=== PATIENT | male | born 1970 | race African-American/Black ===

== ENCOUNTER 2016-08-18 07:53 | Inpatient (IN) | payer MEDICARE, MEDICAID ==
[2016-08-18] VITALS (9 sets, daily range): BP systolic 119–148; BP diastolic 62–85; PULSE 107–138; RESP 18–22; TEMP 98.4–100.8; O2SAT 92–100
[~2016-08-18] VITALS: Ht 177.8 cm; Wt 92.3 kg
[~2016-08-18 07:53] MED LIST: ATOV750UDC PO; EFAV200 PO; EMTR200 PO; FERR324T4 PO; LACT PO; LORTA5 PO; SENN187 PO; TENO300 PO; Z.0.NO CURRENT MEDS
[2016-08-18] MEDS ORDERED: VANCOMYCIN INJ 1,000 MG in SODIUM CHLOR 0.9% 250 ML INJ 250 ML IV ONE (08:45)
[2016-08-18] MEDS ORDERED: CEFEPIME INJ 2,000 MG in SODIUM CHLORIDE 0.9% INJ 100 ML IV ONE (08:45)
[2016-08-18] MEDS ORDERED: SODIUM CHLORID 0.9% 500 ML INJ 500 ML IV ONE (08:45)
[2016-08-18] MEDS ORDERED: RESP: ALBUTEROL 2.5 MG/IPRATROPIUM 0.5 MG NEB (SCH) NEB ONE (09:00)
[2016-08-18 09:19] LABS: AUTOMATED NEUTROPHIL # 11.5 TH/MM3 (1.8-7.7); BASOPHIL % 0.1 % (0.0-2.0); EOSINOPHIL % 0.1 % (0.0-4.0); HEMATOCRIT 24.7 % (39.0-51.0); LYMPHOCYTE # 0.9 TH/MM3 (1.0-4.8); MEAN CELL VOLUME 97.9 FL (80.0-100.0); MEAN CORPUSCULAR HEMOGLOBIN 30.9 PG (27.0-34.0); MEAN CORPUSCULAR HGB CONC 31.6 % (32.0-36.0); MONO % 6.3 % (0.0-8.0); NEUT % 86.5 % (16.0-70.0); PLATELET COUNT 202 TH/MM3 (150-450); RED BLOOD COUNT 2.52 MIL/MM3 (4.50-5.90); RED CELL DISTRIBUTION WIDTH 16.3 % (11.6-17.2); WHITE BLOOD COUNT 13.3 TH/MM3 (4.0-11.0)
[2016-08-18 09:22] LABS: HEMO FLAGS AUTO DIFF
--- NOTE | 2016-08-18 09:22 | RADRPT ---
EXAM DATE/TIME: 08/18/2016 08:45 [place] COMPARISON: CHEST SINGLE AP, August 26, 2015, 16:33. INDICATIONS: Fever, short of breath for several days MEDICAL HISTORY: Asthma, renal failure SURGICAL HISTORY: Dialysis catheter ENCOUNTER: Subsequent ACUITY: 1 week PAIN SCORE: 0/10 LOCATION: Bilateral chest FINDINGS: There is a double lumen catheter in place from the right internal jugular approach with the tip overl zaira the junction of the SVC and right atrium. There is a large left pleural effusion occupying two- thirds of the left chest. There is some atelectasis or consolidation at the mid and lower left lung. There is some milder consolidation or atelectasis at the right base. A significant right effusion i s not appreciated. Old healed right-sided rib fractures are seen. The left heart border is silhouet paulino by effusion and parenchymal changes. CONCLUSION: 1. Large left pleural effusion with some accompanying atelectasis or consolidation at the left mid a nd lower lung. 2. Mild atelectasis or consolidation at the right base. Parminder Mccormick MD on August 18, 2016 at 9:12 Board Certified Radiologist. This report was verified electronically.
[2016-08-18 09:29] LABS: APTT (PATIENT) 35.6 SEC (24.3-30.1); INTERNATIONAL NORMALIZED RATIO 1.1 RATIO; PROTHROMBIN TIME - PATIENT 12.4 SEC (9.8-11.6)
[2016-08-18 09:34] LABS: ANION GAP 12 MEQ/L (5-15)
[2016-08-18 09:39] LABS: ALKALINE PHOSPHATASE 90 U/L (45-117); ALT (GPT) 9 U/L (12-78); AST (GOT) 22 U/L (15-37); BICARBONATE 19.5 MEQ/L (21.0-32.0); BLOOD UREA NITROGEN 66 MG/DL (7-18); CHLORIDE 103 MEQ/L (98-107); GLOMERULAR FILTRATION RATE 5 ML/MIN (>89); MAGNESIUM 2.2 MG/DL (1.5-2.5); SODIUM (NA) 134 MEQ/L (136-145); TOTAL BILIRUBIN ADULT 0.4 MG/DL (0.2-1.0)
[2016-08-18 10:00] LABS: BANDS 5 % (0-6); NEUTROPHIL # MANUAL DIFF 11.3 TH/MM3 (1.8-7.7); PLATELET ESTIMATE SMEAR NORMAL (NORMAL); PLATELET MORPHOLOGY NORMAL (NORMAL); POLYS (SEG NEUTROPHILS) 80 % (16-70); SCAN/DIFF FINAL DIFF MANUAL; WBC DIFF SAMPLE 100
[2016-08-18] MEDS ORDERED: SODIUM CHLORIDE 0.9% FLUSH 5 ML FLUSH FLUSH PRN (11:00)
[2016-08-18] MEDS ORDERED: BISACODYL 10 MG SUPP PR PRN (11:00)
[2016-08-18] MEDS ORDERED: CEFEPIME INJ 2,000 MG in SODIUM CHLORIDE 0.9% INJ 100 ML IV PRN (11:00)
[2016-08-18] MEDS ORDERED: VANCOMYCIN INJ 1,000 MG in SODIUM CHLOR 0.9% 250 ML INJ 250 ML IV SCH (11:00)
[2016-08-18] MEDS ORDERED: MAGNESIUM HYDROXIDE SUSP 30 ML CUP PO PRN (11:00)
[2016-08-18] MEDS ORDERED: SENNOSIDES 8.6 MG TAB PO PRN (11:00)
[2016-08-18] MEDS ORDERED: ACETAMINOPHEN 325 MG TAB PO PRN ×2 (11:00→18:30)
[2016-08-18] MEDS ORDERED: ONDANSETRON HCL 4 MG/2 ML VIAL IVP PRN (11:00)
[2016-08-18] MEDS ORDERED: PROCHLORPERAZINE 25 MG SUPP PR PRN (11:00)
[2016-08-18] MEDS ORDERED: Vancomycin Consult Pharmacy 1 EA OTHER SCH (11:00)
--- NOTE | 2016-08-18 11:32 | PD ---
HPI Chief Complaint: Fever Time Seen by Provider: 08:36 Travel History International Travel<30 days: No Contact w/Intl Traveler<30days: No Traveled to known affect area: No History of Present Illness HPI 45-year-old man, history of HIV, end-stage renal disease, hepatitis C, presents emergency Department with fevers and chills. He's had 2 weeks of cough cold symptoms, that started yesterday and today started having fevers chills and night sweats. He also had some shortness of breath at 9 over the past week or so. He missed dialysis yesterday because he was feeling poorly. He gets dialysis in [place] where he lives. He is a right chest port in, as well as a left AV fistula that apparently still maturing. History Past Medical History Narrative Medical HIV End-stage renal disease, on hemodialysis Wednesday to her right chest or Hepatitis C Hypertension Influenza Vaccination: Yes Social History Alcohol Use: No Tobacco Use: No Allergies-Medications (Allergen,Severity, Reaction): Coded Allergies: *MDRO Multi-Drug Resistant Organism (Verified Adverse Reaction, Unknown, 07/16/15) MDR-acinetobacter baumannii/haemol blood 07/2015 Reported Meds & Prescriptions Reported Meds & Active Scripts Active Viread (Tenofovir Disoproxil Fumarate) 300 Mg Tab 300 Mg PO Q7D 30 Days Senokot 8.6 mg Tab (Sennosides) 8.6 Mg Tab 17.2 Mg PO Q12H PRN 30 Days Lactinex (Lactobacillus Acidophilus) 1 Tab Tab 1 Tab PO TID 30 Days Hydrocodone/Acetaminophen 5 mg/325 mg 1 Tab Tab 1 Tab PO Q6HR PRN Ferrous Sulfate 325 Mg Tab 325 Mg PO BID 30 Days Emtriva (Emtricitabine) 200 Mg Cap 200 Mg PO Q96H 30 Days Sustiva (Efavirenz) 200 Mg Cap 600 Mg PO HS 30 Days Mepron 750 Mg Udc (Atovaquone) 750 Mg/5 Ml Susp 1,500 Mg PO DAILY 30 Days Reported No Current Meds (Miscellaneous Medication) Misc Review of Systems Except as stated in HPI: all other systems reviewed are Neg Physical Exam Narrative GENERAL: Generally well-appearing 45-year-old man, generally well-appearing. SKIN: Warm and dry. HEAD: Atraumatic. Normocephalic. EYES: Pupils equal and round. No scleral icterus. No injection or drainage. ENT: No nasal bleeding or discharge. Mucous membranes pink and moist. NECK: Trachea midline. No JVD. CARDIOVASCULAR: Heart rate rapid. No appreciable murmurs. RESPIRATORY: Coarse breath sounds wheezing and rhonchi throughout the posterior lung reese. GASTROINTESTINAL: Abdomen soft, non-tender, nondistended. Hepatic and splenic margins not palpable. MUSCULOSKELETAL: No obvious deformities. No edema. NEUROLOGICAL: Awake and alert. No obvious cranial nerve deficits. Motor grossly within normal limits. Normal speech. PSYCHIATRIC: Appropriate mood and affect; insight and judgment normal. Data Data Last Documented VS Vital Signs Date Time Temp Pulse Resp B/P Pulse Ox O2 Delivery O2 Flow Rate FiO2 08/18/16 09:35 98 Nasal Cannula 3.00 08/18/16 08:37 137 18 08/18/16 08:32 100.2 145/71 Orders Complete Blood Count With Diff (08/18/16 08:45) Comprehensive Metabolic Panel (08/18/16 08:45) Prothrombin Time / Inr (Pt) (08/18/16 08:45) Act Partial Throm Time (Ptt) (08/18/16 08:45) Lactic Acid Sepsis Protocol (08/18/16 08:45) Magnesium (Mg) (08/18/16 08:45) Lipase (08/18/16 08:45) Troponin I (08/18/16 08:45) Urinalysis - C+S If Indicated (08/18/16 08:45) Influenzae A/B Antigen (08/18/16 08:45) Blood Culture (08/18/16 08:45) Chest, Single Ap (08/18/16 08:45) Blood Glucose (08/18/16 08:45) Ecg Monitoring (08/18/16 08:45) Iv Access Insert/Monitor (08/18/16 08:45) Oximetry (08/18/16 08:45) Oxygen Administration (08/18/16 08:45) Sodium Chlorid 0.9% 500 Ml Inj (Ns 500 M (08/18/16 08:45) Vancomycin Inj (Vancomycin Inj) (08/18/16 08:45) Cefepime Inj (Maxipime Inj) (08/18/16 08:45) Albuterol-Ipratropium Neb (Duoneb Neb) (08/18/16 09:00) Admit Order (Ed Use Only) (08/18/16 ) Admit To Inpatient (08/18/16 ) Vital Signs (Adult) Q4H (08/18/16 10:59) Activity Oob With Assistance (08/18/16 10:59) Bedside Glucose YESICA.AC&HS (08/18/16 10:59) ^ Director Rehabilitation Program / Telemetry .CONTINUOUS (08/18/16 10:59) Intake + Output YESICA.QSHIFT (08/18/16 10:59) Diet Heart Healthy (08/18/16 Lunch) Sodium Chloride 0.9% Flush (Ns Flush) (08/18/16 11:00) Sodium Chloride 0.9% Flush (Ns Flush) (08/18/16 21:00) Acetaminophen (Tylenol) (08/18/16 11:00) Ondansetron Inj (Zofran Inj) (08/18/16 11:00) Prochlorperazine Supp (Compazine Supp) (08/18/16 11:00) Bisacodyl Supp (Dulcolax Supp) (08/18/16 11:00) Magnesium Hydroxide Liq (Milk Of Magnesi (08/18/16 11:00) Sennosides (Senokot) (08/18/16 11:00) Basic Metabolic Panel (Bmp) (08/19/16 06:00) Complete Blood Count With Diff (08/19/16 06:00) Resp Oxygen Ponce C Titrat 1-4 L (08/18/16 ) Pt Request For Service (08/18/16 10:59) Ot Request For Service (08/18/16 10:59) Case Management Consult (08/18/16 10:59) Enoxaparin Inj (Lovenox Inj) (08/18/16 11:00) Scd Bilateral/Knee High YESICA.BID (08/18/16 10:59) Mauro Bilateral/Knee High YESICA.QSHIFT (08/18/16 10:59) Inpatient Certification (08/18/16 ) Cefepime Inj (Maxipime Inj) (08/18/16 11:00) Vancomycin Consult Pharmacy (Vancomycin (08/18/16 11:00) Vancomycin Inj (Vancomycin Inj) (08/18/16 11:00) Consult Nephrology (08/18/16 ) Consult Infectious Disease (08/18/16 ) ^ Medication Reconciliation (08/18/16 11:03) Labs Laboratory Tests Test 08/18/16 08:50 White Blood Count 13.3 TH/MM3 Red Blood Count 2.52 MIL/MM3 Hemoglobin 7.8 GM/DL Hematocrit 24.7 % Mean Corpuscular Volume 97.9 FL Mean Corpuscular Hemoglobin 30.9 PG Mean Corpuscular Hemoglobin 31.6 % Concent Red Cell Distribution Width 16.3 % Platelet Count 202 TH/MM3 Mean Platelet Volume 8.3 FL Neutrophils (%) (Auto) 86.5 % Lymphocytes (%) (Auto) 7.0 % Monocytes (%) (Auto) 6.3 % Eosinophils (%) (Auto) 0.1 % Basophils (%) (Auto) 0.1 % Neutrophils # (Auto) 11.5 TH/MM3 Lymphocytes # (Auto) 0.9 TH/MM3 Monocytes # (Auto) 0.8 TH/MM3 Eosinophils # (Auto) 0.0 TH/MM3 Basophils # (Auto) 0.0 TH/MM3 CBC Comment AUTO DIFF Differential Total Cells 100 Counted Neutrophils % (Manual) 80 % Band Neutrophils % 5 % Lymphocytes % 10 % Monocytes % 5 % Neutrophils # (Manual) 11.3 TH/MM3 Differential Comment FINAL DIFF MANUAL Platelet Estimate NORMAL Platelet Morphology Comment NORMAL Prothrombin Time 12.4 SEC Prothromb Time International 1.1 RATIO Ratio Activated Partial 35.6 SEC Thromboplast Time Sodium Level 134 MEQ/L Potassium Level 5.0 MEQ/L Chloride Level 103 MEQ/L Carbon Dioxide Level 19.5 MEQ/L Anion Gap 12 MEQ/L Blood Urea Nitrogen 66 MG/DL Creatinine 13.18 MG/DL Estimat Glomerular Filtration 5 ML/MIN Rate Random Glucose 106 MG/DL Lactic Acid Level 2.0 mmol/L Calcium Level 8.3 MG/DL Magnesium Level 2.2 MG/DL Total Bilirubin 0.4 MG/DL Aspartate Amino Transf 22 U/L (AST/SGOT) Alanine Aminotransferase 9 U/L (ALT/SGPT) Alkaline Phosphatase 90 U/L Troponin I 0.09 NG/ML Total Protein 11.2 GM/DL Albumin 2.3 GM/DL Lipase 222 U/L MDM Medical Decision Making Medical Screen Exam Complete: Yes Emergency Medical Condition: Yes Interpretation(s) LABS: CBC remarkable for mild leukocytosis, mild anemia CMP remarkable for elevated BUN/creatinine Troponin 0.09 Total protein on 0.2 Lipase normal Chest x-ray: Large left pleural effusion with some accompanying atelectasis or consolidation of the left mid and lower lung. Mild atelectasis or consolidation of the right base. Differential Diagnosis Pneumonia, sepsis, HIV Narrative Course Medical decision making 45-year-old man with sepsis, end-stage renal disease, implanted line, and HIV. Likely pneumonia source. Chest x-ray shows pleural effusion. Of note, visitors with him does not know his HIV status and he would like her to not. Initially admitted. Diagnosis Primary Impression: Sepsis Qualified Code: A41.9 - Sepsis, due to unspecified organism Additional Impression: HIV disease William Yuen MD Aug 18, 2016 11:32
[2016-08-18] MEDS ORDERED: ENOXAPARIN SODIUM 40 MG/0.4 ML SYRINGE SQ SCH (12:00)
--- NOTE | 2016-08-18 15:31 | HHI.HP ---
HPI Service [facility] Primary Care Physician Unknown Admission Diagnosis sepsis Diagnoses: Chief Complaint: coufg, fevers Travel History International Travel<30 Days: No Contact w/Intl Traveler <30 Da: No Traveled to Known Affected Are: No History of Present Illness 45 yo male with PMH of HIV/AIDS/ HIV nephropathy, ESRD on HD M/W/F here for evaluation of cough, fevers and tiredness. Patient says she started coughing 2 weeks ago, worsening for the past 3-4 days, and he has associated intermittent fevers starting yesterday. Says he missed HD because he felt too week. He also has associated sob for the past 2 days. Says when he leans on bed he has more sob and cough. No cp, n/v/d/c. Says he goes back and forth [place] /[place] and his nephrology doctor is in [place]. He treated himself with OTC meds but did not help. Feels very weak. The patient is in the room leaning on the table, on the pillow and says this position is making him cough less. He has a right chest port , as well as a left AV fistula that apparently still maturing. Review of Systems Other 12 system ROS reviewed , negative except mentioned in HPI Past Family Social History Past Medical History HIV/AIDS/ HIV nephropathy, ESRD on HD Past Surgical History dialysis fistula Reported Medications Reported Meds & Active Scripts Active Allergies: Coded Allergies: *MDRO Multi-Drug Resistant Organism (Verified Adverse Reaction, Unknown, 07/16/15) MDR-acinetobacter baumannii/haemol blood 07/2015 Family History Says his parents and siblings are alive but doesn't know any medical problems that they might have. Social History Denies EtOH use, tobacco use. Denies illicit drug use. Says no IV drug use... Says he doesn't know how he got HIV/Hep C .... Physical Exam Vital Signs Vital Signs Date Time Temp Pulse Resp B/P Pulse Ox O2 Delivery O2 Flow Rate FiO2 08/18/16 14:25 115 22 122/72 95 Nasal Cannula 4 08/18/16 13:13 131 22 119/63 92 Nasal Cannula 4 08/18/16 09:35 98 Nasal Cannula 3.00 08/18/16 09:01 95 Nasal Cannula 4 08/18/16 09:01 95 Nasal Cannula 4 08/18/16 08:37 137 18 95 Room Air 08/18/16 08:32 100.2 138 18 145/71 97 08/18/16 07:55 100.3 136 18 148/85 93 Room Air Physical Exam GENERAL: This is a chronically ill 45 yo AA male patient, well-nourished, well- developed patient, coughing. SKIN: No rashes, ecchymoses or lesions. Cool and dry. HEAD: Atraumatic. Normocephalic. No temporal or scalp tenderness. EYES: Pupils equal round and reactive. Extraocular motions intact. No scleral icterus. No injection or drainage. ENT: Nose without bleeding, purulent drainage or septal hematoma. Throat without erythema, tonsillar hypertrophy or exudate. Uvula midline. Airway patent. NECK: Trachea midline. No JVD or lymphadenopathy. Supple, nontender, no meningeal signs. CARDIOVASCULAR: Regular rate and rhythm without murmurs, gallops, or rubs. RESPIRATORY: Coarse breath sounds, wheezing and rhonchi throughout the posterior lung reese. GASTROINTESTINAL: Abdomen soft, non-tender, nondistended. No hepato-splenomegaly , or palpable masses. No guarding. MUSCULOSKELETAL: Extremities without clubbing, cyanosis, or edema. No joint tenderness, effusion, or edema noted. No calf tenderness. Negative Homans sign bilaterally. NEUROLOGICAL: Awake and alert. Cranial nerves II through XII intact. Motor and sensory grossly within normal limits. Five out of 5 muscle strength in all muscle groups. Normal speech. Laboratory Laboratory Tests Test 08/18/16 08:50 White Blood Count 13.3 Red Blood Count 2.52 Hemoglobin 7.8 Hematocrit 24.7 Mean Corpuscular Volume 97.9 Mean Corpuscular Hemoglobin 30.9 Mean Corpuscular Hemoglobin 31.6 Concent Red Cell Distribution Width 16.3 Platelet Count 202 Mean Platelet Volume 8.3 Neutrophils (%) (Auto) 86.5 Lymphocytes (%) (Auto) 7.0 Monocytes (%) (Auto) 6.3 Eosinophils (%) (Auto) 0.1 Basophils (%) (Auto) 0.1 Neutrophils # (Auto) 11.5 Lymphocytes # (Auto) 0.9 Monocytes # (Auto) 0.8 Eosinophils # (Auto) 0.0 Basophils # (Auto) 0.0 CBC Comment AUTO DIFF Differential Total Cells 100 Counted Neutrophils % (Manual) 80 Band Neutrophils % 5 Lymphocytes % 10 Monocytes % 5 Neutrophils # (Manual) 11.3 Differential Comment FINAL DIFF MANUAL Platelet Estimate NORMAL Platelet Morphology Comment NORMAL Prothrombin Time 12.4 Prothromb Time International 1.1 Ratio Activated Partial 35.6 Thromboplast Time Sodium Level 134 Potassium Level 5.0 Chloride Level 103 Carbon Dioxide Level 19.5 Anion Gap 12 Blood Urea Nitrogen 66 Creatinine 13.18 Estimat Glomerular Filtration 5 Rate Random Glucose 106 Lactic Acid Level 2.0 Calcium Level 8.3 Magnesium Level 2.2 Total Bilirubin 0.4 Aspartate Amino Transf 22 (AST/SGOT) Alanine Aminotransferase 9 (ALT/SGPT) Alkaline Phosphatase 90 Troponin I 0.09 Total Protein 11.2 Albumin 2.3 Lipase 222 Date/Time Procedure Status Source Growth 08/18/16 08:58 Influenza Types A,B Antigen (KATHIE) - Final Complete Nasal Washing NEGATIVE FOR FLU A AND B ANTIGEN.... 08/18/16 08:55 Aerobic Blood Culture Received Blood Peripheral Pending 08/18/16 08:55 Anaerobic Blood Culture Received Blood Peripheral Pending 08/18/16 08:45 Influenza Types A,B Antigen (KATHIE) Received Nasal Washing Pending Result Diagram: 08/18/16 0850 08/18/16 0850 Assessment and Plan Assessment and Plan 45 yo male with PMH/ HIV nephropathy, ESRD on HD M/W/F here for evaluation of cough, fevers and tiredness. Patient with sepsis, end-stage renal disease, implanted line, and HIV. Likely pneumonia source. Chest x-ray shows pleural effusion, consolidation. Sepsis criteria on admission leukocytosis, tachycardia HIV/AIDS ESRD on HD M/W/F Chronic back pain Elevated Troponin 0.09 likely 2/2 decreased clearance missed HD. He denies having any chest pain . Chest x-ray reviewed also findings discussed with Dr Saldana from ED: Large left pleural effusion with some accompanying atelectasis or consolidation of the left mid and lower lung. Mild atelectasis or consolidation of the right base. Blood cx 08/18 Started on IV abx maxipime and vanco. Sputum cx Pneumococcal and legionella ag Consult ID specialist Consult pulm Resume home HIV meds: Tenofovir 300 Mg PO Q7D. Emtricitabine 200 Mg Cap Q96H. Efavirenz 600 Mg PO HS. Atovaquone 1,500 Mg PO DAILY DVT ppx SCD/TEDs lovenox Code Status full code Discussed Condition With patient, nurse Physician Certification 2 Midnight Certification Type: Admission for Inpatient Services Order for Inpatient Services The services are ordered in accordance with Medicare regulations or non- Medicare payer requirements, as applicable. In the case of services not specified as inpatient-only, they are appropriately provided as inpatient services in accordance with the 2-midnight benchmark. Estimated LOS (days): 3 days is the estimated time the patient will need to remain in the hospital, assuming treatment plan goals are met and no additional complications. Post-Hospital Plan: Home Emmy Day MD Aug 18, 2016 15:31
--- NOTE | 2016-08-18 16:55 | MB ---
cc: DENYS SCHUSTER MD DATE OF CONSULTATION: 08/18/[address] Day. REASON FOR CONSULTATION: Sepsis HIV/AIDS. HISTORY OF PRESENT ILLNESS This is a 45-year-old black male who has known history of AIDS and end-stage renal disease. The patient presented to emergency department with fever. The patient is reported by his girlfriend and himself to have had shortness of breath for 2 weeks and then developed cough 2 days ago and fevers also 2 days ago. The patient is visiting his girlfriend. He lives in [place]. He was admitted to this hospital in August 2015 and was diagnosed with HIV and end-stage renal disease and has been undergoing dialysis in [place] three times a week. The patient tells me that he has had difficulty laying flat over the past 2 weeks. His temperature was 100.3 degrees early this morning, and the white blood cell count is elevated. A chest x-ray Shows a large left pleural effusion with some consolidation at the left mid and lower lung and also mild atelectasis or consolidation at the right base. He tells me that he has not been bringing up any sputum. He appears to be in obvious respiratory distress and sits in bed upright, leaning forward, and he is coughing but not producing sputum. The patient tells me that he has been compliant with his medications for the HIV. PAST MEDICAL HISTORY HIV End-stage renal disease Patient on hemodialysis. Hepatitis C. Hypertension. Left upper extremity AV fistula Dialysis vascular catheter. History of buttock abscess due to staph aureus history of sepsis due to staph aureus history of bacteremia due to Acinetobacter. 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 MEDICATIONS Cefepime Zofran. Lovenox Vancomycin x1 dose. SOCIAL HISTORY No tobacco, no alcohol. No illicit drugs. FAMILY HISTORY Noncontributory. REVIEW OF SYSTEMS Pertinent mentioned history of present illness. Significant for fever, cough, shortness of breath. PHYSICAL EXAMINATION IN GENERAL: This is a well-developed male who is in obvious respiratory distress. He is receiving oxygen via nasal cannula. VITAL SIGNS: Temperature 100.2, BP 08/02 90/63, respirations 22, heart rate 131. HEAD, EYES, EARS, NOSE, AND THROAT: Head is atraumatic. Extraocular movements grossly intact, pupils reactive to light. No in no icterus. No conjunctival erythema. Nose no swelling. No bleeding. Oropharynx no visible lesions. Mucosa is moist. NECK: Supple without adenopathy. LUNGS: Coarse rhonchi at the right lung field and decreased breath sounds left lung reese and also rhonchi at the left base. HEART: Tachycardiac gets wound S2. No audible murmurs or rubs or gallops. ABDOMEN: Bowel sounds present, soft, nontender. RECTUM: Not performed. EXTREMITIES: Warm edema at the feet. No clubbing, cyanosis. NEUROLOGIC: Nonfocal. SKIN: No rash PSYCHIATRIC: The patient calm and cooperative. LABORATORY DATA WBC 13.3, platelets 202, 86% neutrophils, hemoglobin is 7.8, creatinine 13.18, BUN 66, estimated GFR 5. Liver function tests normal, sodium 134. IMPRESSION 1. Sepsis. 2. Left lung effusion / pneumonia. 3. AIDS 4. End-stage renal disease. RECOMMENDATIONS 1. Continue cefepime. 2. Monitor blood cultures. 3. The patient will need thoracentesis for therapeutic purposes and to obtain cultures on the lung effusion. 4. Monitor temperature. 5. Monitor white blood cell count. 5. Monitor clinical status. 6. Continue HAART treatment for the HIV. Thank you for this consultation. The patient's progress will be monitored and further recommendations will be given on followup. The patient is to be evaluated by pulmonary specialty as well for the pleural effusion. Denys Schuster MD FD/ellis /2:08 PM /4:42 PM MAGNO
[2016-08-18] MEDS ORDERED: SODIUM CHLOR 0.9% 1000 ML INJ 1,000 ML IV PRN ×2 (18:24)
[2016-08-18] MEDS ORDERED: MANNITOL 12.5 GM/50 ML VIAL IV PRN (18:30)
[2016-08-18] MEDS ORDERED: ONDANSETRON HCL 4 MG/2 ML VIAL IV PRN (18:30)
[2016-08-18] MEDS ORDERED: cloNIDine HCL 0.1 MG TAB PO PRN (18:30)
[2016-08-18] MEDS ORDERED: NITROGLYCERIN 0.4 MG SL 25 TABS/BTL SL PRN (18:30)
[2016-08-18] MEDS ORDERED: HEPARIN SODIUM - IV 10,000 UNITS/10 ML VIAL IVF PRN (18:30)
[2016-08-18] MEDS ORDERED: SODIUM CHLORIDE 0.9% FLUSH 5 ML FLUSH IVF PRN (18:30)
[2016-08-18] MEDS ORDERED: GELATIN 12 MM/7 MM FOAM TOP PRN (18:30)
[2016-08-18] MEDS ORDERED: ALBUMIN HUMAN 25% 25 GM/100 ML BAGP IV PRN (18:30)
[2016-08-18] MEDS ORDERED: diphenhydrAMINE HCL 25 MG CAP PO PRN (18:30)
--- NOTE | 2016-08-18 18:34 | PD.CONS ---
HPI Service Nephrology Consult Requested By Dr. Day Reason for Consult End-stage renal disease Primary Care Physician Unknown History of Present Illness Patient is a 45-year-old the -Americans male with history of end-stage renal disease, HIV nephropathy, hypertension, AIDS complex has developed increasing cough and respiratory complaints have wheezing and came in with possibility of pneumonia, he states he goes for his hemodialysis and on Endo area and do it on Wednesday, Wednesday and Wednesday however due to his illness he has Mr. Wednesday treatment last dialysis is on Wednesday. Review of Systems Constitutional: COMPLAINS OF: Fatigue, Fever Respiratory: COMPLAINS OF: Cough, Wheezing, Shortness of breath Cardiovascular: COMPLAINS OF: Lower Extremity Edema Psychiatric: COMPLAINS OF: Anxiety Past Family Social History Allergies: Coded Allergies: *MDRO Multi-Drug Resistant Organism (Verified Adverse Reaction, Unknown, 07/16/15) MDR-acinetobacter baumannii/haemol blood 07/2015 Past Medical History HIV disease AIDS ESRD Anemia Asthma Hypertension Secondary hyperparathyroidism Hepatitis C Past Surgical History AV fistula left Reported Medications Reported Meds & Active Scripts Active Active Ordered Medications Current Medications Medications (Trade) Dose Ordered Sig/Karl Route Start Time Stop Time Status Last Admin (NS Flush) 2 ml UNSCH PRN FLUSH 08/18/16 11:00 (NS Flush) 2 ml BID FLUSH 08/18/16 21:00 (Tylenol) 650 mg Q4H PRN PO 08/18/16 11:00 08/18/16 16:28 (Zofran Inj) 4 mg Q6H PRN IVP 08/18/16 11:00 (Compazine Supp) 25 mg Q12H PRN ND 08/18/16 11:00 (Dulcolax Supp) 10 mg DAILY PRN ND 08/18/16 11:00 (Milk Of Magnesia Liq) 30 ml Q12H PRN PO 08/18/16 11:00 (Senokot) 17.2 mg Q12H PRN PO 08/18/16 11:00 Enoxaparin Sodium 40 mg 40 mg Q24H SQ 08/18/16 12:00 08/18/16 13:12 Cefepime HCl 2000 mg/Sodium Chloride 100 ml @ 200 mls/hr Q48H PRN IV 08/18/16 11:00 (Vancomycin Consult Pharmacy) 0 ml @ 0 mls/hr UNSCH OTHER 08/18/16 11:00 Family History Noncontributory Social History Denies smoking alcohol use or illicit drug Physical Exam Vital Signs Vital Signs Date Time Temp Pulse Resp B/P Pulse Ox O2 Delivery O2 Flow Rate FiO2 08/18/16 15:00 100.8 110 20 130/62 100 08/18/16 14:25 115 22 122/72 95 Nasal Cannula 4 08/18/16 13:13 131 22 119/63 92 Nasal Cannula 4 08/18/16 09:35 98 Nasal Cannula 3.00 08/18/16 09:01 95 Nasal Cannula 4 08/18/16 09:01 95 Nasal Cannula 4 08/18/16 08:37 137 18 95 Room Air 08/18/16 08:32 100.2 138 18 145/71 97 08/18/16 07:55 100.3 136 18 148/85 93 Room Air Physical Exam GENERAL: Sick appearing male SKIN: Warm and dry. HEAD: Normocephalic. EYES: No scleral icterus. No injection or drainage. NECK: Supple, trachea midline. No JVD or lymphadenopathy. CARDIOVASCULAR: Tachycardia RESPIRATORY: Diminished breath sounds at left and wheezing present. GASTROINTESTINAL: Abdomen soft, non-tender, nondistended. MUSCULOSKELETAL: No cyanosis 2+ edema. BACK: Nontender without obvious deformity. No CVA tenderness. Laboratory Laboratory Tests Test 08/18/16 08:50 White Blood Count 13.3 Red Blood Count 2.52 Hemoglobin 7.8 Hematocrit 24.7 Mean Corpuscular Volume 97.9 Mean Corpuscular Hemoglobin 30.9 Mean Corpuscular Hemoglobin 31.6 Concent Red Cell Distribution Width 16.3 Platelet Count 202 Mean Platelet Volume 8.3 Neutrophils (%) (Auto) 86.5 Lymphocytes (%) (Auto) 7.0 Monocytes (%) (Auto) 6.3 Eosinophils (%) (Auto) 0.1 Basophils (%) (Auto) 0.1 Neutrophils # (Auto) 11.5 Lymphocytes # (Auto) 0.9 Monocytes # (Auto) 0.8 Eosinophils # (Auto) 0.0 Basophils # (Auto) 0.0 CBC Comment AUTO DIFF Differential Total Cells 100 Counted Neutrophils % (Manual) 80 Band Neutrophils % 5 Lymphocytes % 10 Monocytes % 5 Neutrophils # (Manual) 11.3 Differential Comment FINAL DIFF MANUAL Platelet Estimate NORMAL Platelet Morphology Comment NORMAL Prothrombin Time 12.4 Prothromb Time International 1.1 Ratio Activated Partial 35.6 Thromboplast Time Sodium Level 134 Potassium Level 5.0 Chloride Level 103 Carbon Dioxide Level 19.5 Anion Gap 12 Blood Urea Nitrogen 66 Creatinine 13.18 Estimat Glomerular Filtration 5 Rate Random Glucose 106 Lactic Acid Level 2.0 Calcium Level 8.3 Magnesium Level 2.2 Total Bilirubin 0.4 Aspartate Amino Transf 22 (AST/SGOT) Alanine Aminotransferase 9 (ALT/SGPT) Alkaline Phosphatase 90 Troponin I 0.09 Total Protein 11.2 Albumin 2.3 Lipase 222 Date/Time Procedure Status Source Growth 08/18/16 08:58 Influenza Types A,B Antigen (KATHIE) - Final Complete Nasal Washing NEGATIVE FOR FLU A AND B ANTIGEN.... 08/18/16 08:55 Aerobic Blood Culture Received Blood Peripheral Pending 08/18/16 08:55 Anaerobic Blood Culture Received Blood Peripheral Pending 08/18/16 08:45 Influenza Types A,B Antigen (KATHIE) Received Nasal Washing Pending Result Diagram: 08/18/16 0850 08/18/16 0850 Imaging Last Impressions Chest X-Ray 08/18/16 0845 Signed Impressions: Service Date/Time: Thursday, August 18, 2016 08:45 - CONCLUSION: 1. Large left pleural effusion with some accompanying atelectasis or consolidation at the left mid and lower lung. 2. Mild atelectasis or consolidation at the right base. Parminder Mccormick MD Assessment and Plan Problem List: (1) End stage renal disease Plan: Patient will be scheduled for hemodialysis early in the morning we'll continue to provide dialysis while he is in the hospital continue supportive care (2) Pleural effusion Plan: This may need to have Possible thoracenteses (3) Sepsis Plan: Continue with broad-spectrum antibiotic (4) Pneumonia Plan: Received vancomycin and cefepime and vancomycin can be dosed with hemodialysis (5) HIV disease Plan: Advanced disease Problem Qualifiers (1) Sepsis: Qualified Code: A41.9 - Sepsis, due to unspecified organism Iman Benitez MD Aug 18, 2016 18:34
[2016-08-18] MEDS: SODIUM CHLORIDE 0.9% FLUSH 5 ML FLUSH FLUSH SCH (20:30)
[2016-08-18] MEDS: RESP: ALBUTEROL 0.63 MG/3 ML NEB (SCH) NEB (20:31)
--- NOTE | 2016-08-18 20:33 | MB ---
cc: KEVIN BROWN DATE OF CONSULTATION: 08/18/2016 REASON FOR CONSULTATION: Pleural effusion, question pneumonia. HISTORY OF PRESENT ILLNESS Mr. Blair is a 45 year-old -[place] male who has a history of AIDS as well as end-stage renal disease on maintenance hemodialysis 3 days a week, admitted with temperature elevation through the emergency room as well as increasing shortness of breath with evidence of a large left pleural effusion. The patient is mildly tachypneic at rest. He has a cough, expectoration of whitish yellowish mucoid sputum. No hemoptysis, no TB, no industrial exposure. PAST MEDICAL HISTORY: 1. AIDS. 2. End-stage renal disease on maintenance hemodialysis. 3. Hepatitis C 4. Hypertension. 5. History of buttock abscess related to Staphylococcus aureus. 6. Previous pleural effusion. 7. Thoracentesis. 8. History of methicillin-resistant Staphylococcus aureus infection. 9. 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 ALLERGIES: None known to medication. MEDICATIONS: 1. Cefepime. 2. Zofran. 3. Lovenox. 4. Vancomycin. SOCIAL HISTORY: He does not smoke, does not drink. No TB. No industrial exposure. FAMILY HISTORY: Noncontributory. SYSTEMS REVIEW: A 12-point review of systems as per HPI and past history otherwise negative. PHYSICAL EXAMINATION: VITAL SIGNS: Temperature 100.8, pulse 110, respiratory rate 20, blood pressure 130/60. Oxygen saturation 95 to 100% on four liters oxygen nasal cannula. HEENT: Unremarkable. Eyes without icterus. NECK: Without adenopathy or thyroid enlargement. CHEST: Decreased breath sounds both lung bases, moreso on the left. CARDIAC: PMI distant. S1-S2 audible. 1/6 ejection systolic murmur left sternal border. ABDOMEN: Lax, bowel sounds audible. EXTREMITIES: No clubbing, cyanosis or edema. SKIN: Normal. No lymphadenopathy. LABORATORY DATA: White count 13,000, hemoglobin 7.8, platelet count 202,000. Sodium 134, potassium 5.0, BUN 66, creatinine 13. INR 1.1. IMPRESSION: 1. Large left pleural effusion associated consolidation, atelectasis and mild atelectatic change and consolidation in the right base as well. 2. Chronic renal failure on maintenance hemodialysis. 3. AIDS. 4. Probable pneumonia. PLAN The patient has been started on antibiotic therapy and appropriately so. He is followed by Infectious Disease. A left thoracentesis would be appropriate at this time for both diagnostic and therapeutic objective. His oxygenation is quite adequate on oxygen by nasal cannula which will be continued, nebulized albuterol would be appropriate as well to mobilize the secretion. His chest x-ray will be followed. I do thank you for asking me to partake in Mr. Blair care. Kevin Brown MD WWW/ABY /6:47 PM /8:23 PM
[2016-08-19] VITALS (7 sets, daily range): BP systolic 95–141; BP diastolic 52–74; PULSE 99–118; RESP 20–24; TEMP 97.6–98.9; O2SAT 95–100
[2016-08-19] MEDS: RESP: ALBUTEROL 0.63 MG/3 ML NEB (SCH) NEB ×4 (03:43→21:24)
--- NOTE | 2016-08-19 08:08 | EKG ---
Date Performed: 08/18/2016 Time Performed: 08:48:22 PTAGE: 45 years EKG: SINUS TACHYCARDIA INCORRECT LIMB LEAD PLACEMENT CAUSING AN INCORRECT AXIS NONSPECIFIC ST-T WAVE CHANGES ARE NEW FROM THE OLD TRACING ABNORMAL RHYTHM ECG PREVIOUS TRACING : 06/17/2015 18.45 DOCTOR: Lyle Holguin Interpretating Date/Time 08/19/2016 08:06:49
[2016-08-19] MEDS: SODIUM CHLOR 0.9% 1000 ML INJ 1,000 ML IV PRN (08:25)
[2016-08-19] MEDS: EPOETIN ALFA 10,000 UNITS/ML VIAL IV PRN (08:26)
[2016-08-19] MEDS: HEPARIN SODIUM - IV 10,000 UNITS/10 ML VIAL PRN (08:26)
[2016-08-19] MEDS: GENTAMICIN SULFATE (DIALYSIS USE ONLY) 20 MG/2 ML VIAL IV PRN (08:26)
[2016-08-19] MEDS: VANCOMYCIN INJ 1,000 MG in SODIUM CHLOR 0.9% 250 ML INJ 250 ML IV SCH (08:27)
[2016-08-19 08:39] LABS: AUTOMATED NEUTROPHIL # 26.1 TH/MM3 (1.8-7.7); BASOPHIL % 0.1 % (0.0-2.0); EOSINOPHIL % 0.1 % (0.0-4.0); LYMPH % 3.6 % (9.0-44.0); MEAN CELL VOLUME 98.1 FL (80.0-100.0); MEAN CORPUSCULAR HEMOGLOBIN 31.2 PG (27.0-34.0); MEAN CORPUSCULAR HGB CONC 31.8 % (32.0-36.0); MONO % 3.7 % (0.0-8.0); NEUT % 92.5 % (16.0-70.0); PLATELET COUNT 196 TH/MM3 (150-450); RED BLOOD COUNT 2.65 MIL/MM3 (4.50-5.90); WHITE BLOOD COUNT 28.2 TH/MM3 (4.0-11.0)
[2016-08-19 08:58] LABS: HEMO FLAGS AUTO DIFF
[2016-08-19 09:04] LABS: BICARBONATE 22.4 MEQ/L (21.0-32.0); POTASSIUM 4.8 MEQ/L (3.5-5.1)
[2016-08-19 09:53] LABS: BANDS 19 % (0-6); NEUTROPHIL # MANUAL DIFF 27.4 TH/MM3 (1.8-7.7); PLATELET ESTIMATE SMEAR NORMAL (NORMAL); PLATELET MORPHOLOGY NORMAL (NORMAL); POLYS (SEG NEUTROPHILS) 78 % (16-70); SCAN/DIFF FINAL DIFF MANUAL; WBC DIFF SAMPLE 100
[2016-08-19] MEDS: SODIUM CHLORIDE 0.9% FLUSH 5 ML FLUSH FLUSH SCH ×2 (11:23→21:02)
[2016-08-19] MEDS ORDERED: GLUCAGON 1 MG/ML VIAL OTHER PRN (12:00)
[2016-08-19] MEDS ORDERED: DEXTROSE 50% IN WATER 50 ML VIAL(D50) IV PUSH PRN (12:00)
[2016-08-19] MEDS: ENOXAPARIN SODIUM 30 MG/0.3 ML SYRINGE SQ SCH (12:00)
--- NOTE | 2016-08-19 12:56 | HHI.PR ---
Subjective Remarks Patient is in nad. With nagging cough. Still with sob, but improved. No fever or chills. No n/v/d/c. Went for HD. Feels tired. Objective Vitals Vital Signs Date Time Temp Pulse Resp B/P Pulse Ox O2 Delivery O2 Flow Rate FiO2 08/19/16 12:15 95 Nasal Cannula 2.00 08/19/16 08:00 98.4 112 20 136/73 97 08/19/16 03:50 97.6 107 24 141/74 100 08/18/16 22:10 98.6 107 22 126/72 100 08/18/16 19:55 98.4 117 20 140/71 100 08/18/16 15:00 100.8 110 20 130/62 100 08/18/16 14:25 115 22 122/72 95 Nasal Cannula 4 08/18/16 13:13 131 22 119/63 92 Nasal Cannula 4 I/O 08/18/16 08/18/16 08/18/16 08/19/16 08/19/16 08/19/16 07:00 15:00 23:00 07:00 15:00 23:00 Intake Total 360 ml 0 ml Output Total 4500 ml Balance 360 ml 0 ml -4500 ml Intake Oral 360 ml 0 ml Output Hemodialysis 4500 ml # Voids 1 3 # Bowel Movements 0 0 Result Diagram: 08/19/16 0830 08/19/16 0830 Imaging Last Impressions Chest X-Ray 08/18/16 0845 Signed Impressions: Service Date/Time: Thursday, August 18, 2016 08:45 - CONCLUSION: 1. Large left pleural effusion with some accompanying atelectasis or consolidation at the left mid and lower lung. 2. Mild atelectasis or consolidation at the right base. Parminder Mccormick MD Objective Remarks GENERAL: This is a chronically ill 45 yo AA male patient, well-nourished, well- developed patient, coughing. SKIN: No rashes, ecchymoses or lesions. Cool and dry. HEAD: Atraumatic. Normocephalic. No temporal or scalp tenderness. EYES: Pupils equal round and reactive. Extraocular motions intact. No scleral icterus. No injection or drainage. ENT: Nose without bleeding, purulent drainage or septal hematoma. Throat without erythema, tonsillar hypertrophy or exudate. Uvula midline. Airway patent. NECK: Trachea midline. No JVD or lymphadenopathy. Supple, nontender, no meningeal signs. CARDIOVASCULAR: Regular rate and rhythm without murmurs, gallops, or rubs. RESPIRATORY: Coarse breath sounds, wheezing and rhonchi throughout the posterior lung reese. GASTROINTESTINAL: Abdomen soft, non-tender, nondistended. No hepato-splenomegaly , or palpable masses. No guarding. MUSCULOSKELETAL: Extremities without clubbing, cyanosis, or edema. No joint tenderness, effusion, or edema noted. No calf tenderness. Negative Homans sign bilaterally. NEUROLOGICAL: Awake and alert. Cranial nerves II through XII intact. Motor and sensory grossly within normal limits. Five out of 5 muscle strength in all muscle groups. Normal speech. 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 Patient with sepsis, end-stage renal disease, implanted line, and HIV. Pneumonia source. Chest x-ray shows pleural effusion, consolidation. Sepsis criteria on admission leukocytosis, tachycardia HIV/AIDS ESRD on HD M/W/. Continue HD, nephro following. Chronic back pain Elevated Troponin 0.09 likely 2/2 decreased clearance missed HD. He denies having any chest pain . Chest x-ray reviewed also findings discussed with Dr Saldana from ED: Large left pleural effusion with some accompanying atelectasis or consolidation of the left mid and lower lung. Mild atelectasis or consolidation of the right base. Blood cx 08/18 with [facility] Continue IV abx maxipime and vanco. Sputum cx pending Pneumococcal and Legionella ag Consult ID specialist Consult pulm Resume home HIV meds: Tenofovir 300 Mg PO Q7D. Emtricitabine 200 Mg Cap Q96H. Efavirenz 600 Mg PO HS. Atovaquone 1,500 Mg PO DAILY DVT ppx SCD/TEDs lovenox Code Status full code Discussed Condition With patient, nurse Emmy Day MD Aug 19, 2016 12:56
--- NOTE | 2016-08-19 17:40 | HHI.NPPN ---
Subjective History of Present Illness 45 year old ESRD, HTN, HIV Disease Review of Systems Respiratory Lungs: SOB Objective Data Data 08/18/16 08/19/16 18:59 06:59 Intake Total 360 ml Balance 360 ml Intake Oral 360 ml # Voids 4 # Bowel Movements 0 Vital Signs Date Time Temp Pulse Resp B/P Pulse Ox O2 Delivery O2 Flow Rate FiO2 08/19/16 15:55 95 Nasal Cannula 2.00 08/19/16 12:15 95 Nasal Cannula 2.00 08/19/16 12:00 98.9 118 20 97/55 97 08/19/16 08:00 98.4 112 20 136/73 97 08/19/16 03:50 97.6 107 24 141/74 100 08/18/16 22:10 98.6 107 22 126/72 100 08/18/16 19:55 98.4 117 20 140/71 100 -: 08/19/16 0830 08/19/16 0830 Physical Exam General Appearance: Well Developed, Well Nourished Neck Neck Exam: Neck Supple Pulmonary Resp Exam: Decreased Bases Cardiology CV Exam: Regular, Normal Sinus Rhythm Gastrointestinal/Abdomen GI Exam: Soft, Non-Tender, Bowel Sounds Present Extremeties Extremities Exam: Trace Edema Assessment/Plan Problem List: (1) End stage renal disease Plan: Patient had hemodialysis early in the morning 4.5 L removed feels better follow labs (2) Pleural effusion Plan: This may need to have Possible thoracenteses (3) Sepsis Plan: Continue with broad-spectrum antibiotic D/W Dr. Caal monitor culture gram positive if staph aureus consider changing P/C (4) Pneumonia Plan: Strep pneumoniae Received vancomycin and ceftriaxone and vancomycin is with hemodialysis (5) HIV disease Plan: Advanced disease Problem Qualifiers (1) Sepsis: Qualified Code: A41.9 - Sepsis, due to unspecified organism Iman Benitez MD Aug 19, 2016 17:40
--- NOTE | 2016-08-19 18:13 | RADRPT ---
EXAM DATE/TIME: 08/19/2016 17:13 [facility] COMPARISON: No previous studies available for comparison. INDICATIONS : Post op left thoracentesis. MEDICAL HISTORY : HIV. Asthma. Renal failure. SURGICAL HISTORY : Dialysis catheter. ENCOUNTER: Initial ACUITY: 1 day PAIN SCORE: 6/10 LOCATION: Left chest FINDINGS: Moderate consolidative changes are present in the left lung with moderate fluid. The right lung is c lear. Dialysis catheter is in good position. CONCLUSION: 1. Consolidative changes and fluid persist on the left in spite of thoracentesis. 2. There is no pneumothorax evident. Kip Haque MD FACR on August 19, 2016 at 17:39 Board Certified Radiologist. This report was verified electronically.
--- NOTE | 2016-08-19 18:31 | HHI.IDPN ---
Note Infectious Disease Note Patient is post Thoracentesis. Says he feels a 100% better. breathing better. No chills. Afebrile. Blood culture has gram positive cocci. This is a 45-year-old black male who has known history of AIDS and end-stage renal disease. The patient presented to emergency department with fever. The patient is reported by his girlfriend and himself to have had shortness of breath for 2 weeks and then developed cough 2 days ago and fevers also 2 days ago. PAST MEDICAL HISTORY HIV End-stage renal disease Patient on hemodialysis. Hepatitis C. Hypertension. Left upper extremity AV fistula Dialysis vascular catheter. History of buttock abscess due to staph aureus history of sepsis due to staph aureus history of bacteremia due to Acinetobacter. 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 Current Medications Medications (Trade) Dose Ordered Sig/Karl Route PRN Reason Start Time Stop Time Status Last Admin Dose Admin IV Flush (NS Flush) 2 ml UNSCH PRN FLUSH FLUSH AFTER USING IV ACCESS 08/18/16 11:00 IV Flush (NS Flush) 2 ml BID FLUSH 08/18/16 21:00 08/19/16 11:23 Acetaminophen (Tylenol) 650 mg Q4H PRN PO TEMP > 100.4 08/18/16 11:00 08/18/16 16:28 Ondansetron HCl (Zofran Inj) 4 mg Q6H PRN IVP NAUSEA OR VOMITING 08/18/16 11:00 Prochlorperazine (Compazine Supp) 25 mg Q12H PRN ID NAUSEA OR VOMITING 08/18/16 11:00 Bisacodyl (Dulcolax Supp) 10 mg DAILY PRN ID CONSTIPATION 08/18/16 11:00 Magnesium Hydroxide (Milk Of Magnesia Liq) 30 ml Q12H PRN PO CONSTIPATION 08/18/16 11:00 Sennosides 17.2 mg 17.2 mg Q12H PRN PO CONSTIPATION 08/18/16 11:00 Cefepime HCl 2000 mg/Sodium Chloride 100 ml @ 200 mls/hr Q48H PRN IV WITH DIALYSIS 08/18/16 11:00 Sodium Chloride (NS 1000 ml Inj) 1,000 ml @ 0 mls/hr Q0M PRN IV For Prime & Rinse Back 08/18/16 18:24 08/19/16 08:25 Heparin Sodium (Porcine) 8000 units 8,000 units UNSCH PRN IVF WITH DIALYSIS 08/18/16 18:30 Sodium Chloride 1,000 ml @ 200 mls/hr Q5H PRN IV WITH DIALYSIS 08/18/16 18:24 08/19/16 08:25 Sodium Chloride (NS 1000 ml Inj) 1,000 ml @ 0 mls/hr Q0M PRN IV WITH DIALYSIS 08/18/16 18:24 Mannitol (Mannitol Inj) 12.5 gm UNSCH PRN IV WITH DIALYSIS 08/18/16 18:30 Albumin Human (Albumin 25% Inj) 25 gm UNSCH PRN IV WITH DIALYSIS 08/18/16 18:30 IV Flush (NS Flush) 5 ml UNSCH PRN IVF WITH DIALYSIS 08/18/16 18:30 08/19/16 08:27 Heparin Sodium (Porcine) (Heparin Inj) UNSCH PRN .XX WITH DIALYSIS 08/18/16 18:30 08/19/16 08:26 Gentamicin Sulfate (Gentamicin (Dialysis) Inj) 20 mg UNSCH PRN IV WITH DIALYSIS 08/18/16 18:30 08/19/16 08:26 Ondansetron HCl (Zofran Inj) 4 mg UNSCH PRN IV WITH DIALYSIS 08/18/16 18:30 Acetaminophen (Tylenol) 650 mg UNSCH PRN PO for headach, pain, temp > 101F 08/18/16 18:30 08/19/16 14:49 Diphenhydramine HCl (Benadryl) 25 mg UNSCH PRN PO for hives/itching/anaphylaxis 08/18/16 18:30 Nitroglycerin (Nitrostat Sl) 0.4 mg UNSCH PRN SL CHEST PAIN 08/18/16 18:30 Clonidine (Catapres) 0.1 mg UNSCH PRN PO for BP > 180/100 X 2 readings 08/18/16 18:30 Epoetin Mati (Epogen Inj) 10,000 units UNSCH PRN IV WITH DIALYSIS 08/18/16 18:30 08/19/16 08:26 Gelatin (Gelfoam 12 Mm/7 Mm Top) 1 foam UNSCH PRN TOP SEE LABEL COMMENTS 08/18/16 18:30 Enoxaparin Sodium (Lovenox Inj) 30 mg Q24H SQ 08/19/16 12:00 Dextrose (D50w (Vial) Inj) 25 ml UNSCH PRN IV PUSH HYPOGLYCEMIA-SEE COMMENTS 08/19/16 12:00 Glucagon (Glucagon Inj) 1 mg UNSCH PRN OTHER HYPOGLYCEMIA-SEE COMMENTS 08/19/16 12:00 Guaifenesin 600 mg 600 mg BID PO 08/19/16 21:00 Cefazolin Sodium/ Sodium Chloride (Ancef Inj/NS Inj) 100 ml @ 200 mls/hr Q24H IV 08/19/16 18:15 UNV SOCIAL HISTORY No tobacco, no alcohol. No illicit drugs. FAMILY HISTORY Noncontributory. OBJ: Vital Signs Date Time Temp Pulse Resp B/P Pulse Ox O2 Delivery O2 Flow Rate FiO2 08/19/16 15:55 95 Nasal Cannula 2.00 08/19/16 12:15 95 Nasal Cannula 2.00 08/19/16 12:00 98.9 118 20 97/55 97 08/19/16 08:00 98.4 112 20 136/73 97 08/19/16 03:50 97.6 107 24 141/74 100 08/18/16 22:10 98.6 107 22 126/72 100 08/18/16 19:55 98.4 117 20 140/71 100 08/18/16 08/18/16 08/19/16 15:00 23:00 07:00 Intake Total 360 ml 0 ml Balance 360 ml 0 ml Intake Oral 360 ml 0 ml # Voids 1 3 # Bowel Movements 0 0 Laboratory Tests Test 08/18/16 08/19/16 08:50 08:30 White Blood Count 13.3 TH/MM3 28.2 TH/MM3 Red Blood Count 2.52 MIL/MM3 2.65 MIL/MM3 Hemoglobin 7.8 GM/DL 8.3 GM/DL Hematocrit 24.7 % 26.0 % Mean Corpuscular Volume 97.9 FL 98.1 FL Mean Corpuscular Hemoglobin 30.9 PG 31.2 PG Mean Corpuscular Hemoglobin 31.6 % 31.8 % Concent Red Cell Distribution Width 16.3 % 16.0 % Platelet Count 202 TH/MM3 196 TH/MM3 Mean Platelet Volume 8.3 FL 8.1 FL Neutrophils (%) (Auto) 86.5 % 92.5 % Lymphocytes (%) (Auto) 7.0 % 3.6 % Monocytes (%) (Auto) 6.3 % 3.7 % Eosinophils (%) (Auto) 0.1 % 0.1 % Basophils (%) (Auto) 0.1 % 0.1 % Neutrophils # (Auto) 11.5 TH/MM3 26.1 TH/MM3 Lymphocytes # (Auto) 0.9 TH/MM3 1.0 TH/MM3 Monocytes # (Auto) 0.8 TH/MM3 1.0 TH/MM3 Eosinophils # (Auto) 0.0 TH/MM3 0.0 TH/MM3 Basophils # (Auto) 0.0 TH/MM3 0.0 TH/MM3 CBC Comment AUTO DIFF AUTO DIFF Differential Total Cells 100 100 Counted Neutrophils % (Manual) 80 % 78 % Band Neutrophils % 5 % 19 % Lymphocytes % 10 % 1 % Monocytes % 5 % 2 % Neutrophils # (Manual) 11.3 TH/MM3 27.4 TH/MM3 Differential Comment FINAL DIFF FINAL DIFF MANUAL MANUAL Platelet Estimate NORMAL NORMAL Platelet Morphology Comment NORMAL NORMAL Laboratory Tests Test 08/18/16 08/19/16 08:50 08:30 Sodium Level 134 MEQ/L 131 MEQ/L Potassium Level 5.0 MEQ/L 4.8 MEQ/L Chloride Level 103 MEQ/L 99 MEQ/L Carbon Dioxide Level 19.5 MEQ/L 22.4 MEQ/L Anion Gap 12 MEQ/L 10 MEQ/L Blood Urea Nitrogen 66 MG/DL 65 MG/DL Creatinine 13.18 MG/DL 11.58 MG/DL Estimat Glomerular Filtration 5 ML/MIN 6 ML/MIN Rate Random Glucose 106 MG/DL 79 MG/DL Lactic Acid Level 2.0 mmol/L Calcium Level 8.3 MG/DL 8.5 MG/DL Magnesium Level 2.2 MG/DL Total Bilirubin 0.4 MG/DL Aspartate Amino Transf 22 U/L (AST/SGOT) Alanine Aminotransferase 9 U/L (ALT/SGPT) Alkaline Phosphatase 90 U/L Troponin I 0.09 NG/ML Total Protein 11.2 GM/DL Albumin 2.3 GM/DL Lipase 222 U/L Microbiology Date/Time Procedure Status Source Growth 08/18/16 08:45 Influenza Types A,B Antigen (KATHIE) Received Nasal Washing Pending 08/18/16 08:50 Aerobic Blood Culture - Preliminary Resulted Blood Peripheral Streptococcus Pneumoniae 08/18/16 08:50 Anaerobic Blood Culture - Preliminary Resulted Gram Positive Cocci 08/18/16 08:55 Aerobic Blood Culture - Preliminary Resulted Blood Peripheral NO GROWTH IN 1 DAY 08/18/16 08:55 Anaerobic Blood Culture - Preliminary Resulted Gram Positive Cocci 08/18/16 08:58 Influenza Types A,B Antigen (KATHIE) - Final Complete Nasal Washing NEGATIVE FOR FLU A AND B ANTIGEN.... PHYSICAL EXAMINATION IN GENERAL: No acute distress. He is receiving oxygen via nasal cannula. HEAD, EYES, EARS, NOSE, AND THROAT: Head is atraumatic. Extraocular movements grossly intact, pupils reactive to light. No in no icterus. No conjunctival erythema. Nose no swelling. No bleeding. Oropharynx no visible lesions. Mucosa is moist. NECK: Supple without adenopathy. LUNGS: Coarse rhonchi at the right lung field and decreased breath sounds at the direction as the coarse breath sounds at the left lung reese and also rhonchi at the left base. HEART: Tachycardiac gets wound Nl S1 S2. No audible murmurs or rubs or gallops. ABDOMEN: Bowel sounds present, soft, nontender. EXTREMITIES: Warm, edema at the feet. No clubbing, cyanosis. NEUROLOGIC: Nonfocal. SKIN: No rash PSYCHIATRIC: The patient calm and cooperative. IMPRESSION 1. Sepsis. Strep pneumoniae. 2. Left lung effusion / pneumonia. 3. AIDS 4. End-stage renal disease. RECOMMENDATIONS 1. Stop cefepime. 2. Monitor blood cultures. 3. Add Ceftriaxone. 4. Monitor pleural fluid culture. 5. Monitor white blood cell count. 6. Depending on the blood culture result. He may need removal of the dialysis catheter. 7. Monitor clinical status. 8. Continue HAART treatment for the HIV. Thank you for this consultation. The patient's progress will be monitored and further recommendations will be given on followup. The patient is to be evaluated by pulmonary specialty as well for the pleural effusion. Moo Caal MD Aug 19, 2016 18:31
[2016-08-19] MEDS: cefTRIAXone INJ 1,000 MG in SODIUM CHLORIDE 0.9% INJ 100 ML IV SCH (18:40)
[2016-08-19] MEDS: guaiFENesin E.R. 600 MG TAB PO SCH (21:01)
[2016-08-19 21:11] LABS: AUTOMATED NEUTROPHIL # 23.4 TH/MM3 (1.8-7.7); BASOPHIL % 0.1 % (0.0-2.0); EOSINOPHIL # 0.1 TH/MM3 (0-0.4); EOSINOPHIL % 0.4 % (0.0-4.0); HEMATOCRIT 24.4 % (39.0-51.0); HEMO FLAGS DIFF FINAL; LYMPH % 11.2 % (9.0-44.0); LYMPHOCYTE # 3.2 TH/MM3 (1.0-4.8); MEAN CELL VOLUME 96.5 FL (80.0-100.0); MEAN CORPUSCULAR HEMOGLOBIN 30.6 PG (27.0-34.0); MEAN CORPUSCULAR HGB CONC 31.7 % (32.0-36.0); MONO % 6.7 % (0.0-8.0); NEUT % 81.6 % (16.0-70.0); PLATELET COUNT 190 TH/MM3 (150-450); RED BLOOD COUNT 2.52 MIL/MM3 (4.50-5.90); RED CELL DISTRIBUTION WIDTH 15.6 % (11.6-17.2); WHITE BLOOD COUNT 28.6 TH/MM3 (4.0-11.0)
[2016-08-19 21:26] LABS: TOTAL PROTEIN,PLEURAL FLUID 7.8 GM/DL
[2016-08-19 22:02] LABS: PLEURAL FLUID LYMPHS 7 %
[2016-08-20] VITALS (12 sets, daily range): BP systolic 97–125; BP diastolic 53–71; PULSE 79–105; RESP 16–20; TEMP 97.2–98.4; O2SAT 92–100
[2016-08-20] MEDS: RESP: ALBUTEROL 0.63 MG/3 ML NEB (SCH) NEB ×4 (03:28→22:21)
[2016-08-20 06:22] LABS: AUTOMATED NEUTROPHIL # 20.9 TH/MM3 (1.8-7.7); BASOPHIL # 0.1 TH/MM3 (0-0.2); BASOPHIL % 0.3 % (0.0-2.0); EOSINOPHIL # 0.2 TH/MM3 (0-0.4); EOSINOPHIL % 0.8 % (0.0-4.0); HEMATOCRIT 24.7 % (39.0-51.0); HEMO FLAGS DIFF FINAL; LYMPH % 11.3 % (9.0-44.0); LYMPHOCYTE # 2.9 TH/MM3 (1.0-4.8); MEAN CELL VOLUME 98.5 FL (80.0-100.0); MEAN CORPUSCULAR HEMOGLOBIN 30.8 PG (27.0-34.0); MEAN CORPUSCULAR HGB CONC 31.3 % (32.0-36.0); MONO % 6.5 % (0.0-8.0); NEUT % 81.1 % (16.0-70.0); PLATELET COUNT 191 TH/MM3 (150-450); RED CELL DISTRIBUTION WIDTH 16.2 % (11.6-17.2); WHITE BLOOD COUNT 25.8 TH/MM3 (4.0-11.0)
[2016-08-20 06:40] LABS: BICARBONATE 26.5 MEQ/L (21.0-32.0); MAGNESIUM 2.3 MG/DL (1.5-2.5); POTASSIUM 4.4 MEQ/L (3.5-5.1)
--- NOTE | 2016-08-20 08:23 | RADRPT ---
EXAM DATE/TIME: 08/19/2016 16:41 [place] COMPARISON: No previous studies available for comparison. INDICATIONS : Left pleural effusion. MEDICAL HISTORY : Hypertension. Dyspnea. HIV/AIDS. Acute renal failure. MDR-Acinetobacter Baumannii/Haemol Blood 07/03 015. SURGICAL HISTORY : Dialysis Fistula. ENCOUNTER: Subsequent ACUITY: 2 days PAIN SCORE: 3/10 LOCATION: Left chest FLUID: Total volume of 1000 cc of cloudy, red fluid was removed. Fluid was sent to lab for ordered studies. Post procedure scanning reveals no hematoma or other complication. TECHNIQUE: 1. Ultrasound guidance for thoracentesis. 2. Thoracentesis. The risks, benefits, and alternatives to ultrasound guided thoracentesis were explained to the patien t in lay simple terms, including the risk of bleeding and infection. Written and verbal informed con sent was obtained. Appropriate area for thoracentesis was marked under ultrasound guidance with the patient in the uprig ht position. Overlying skin was prepped and draped in the usual sterile fashion and with local anest hetic, a dermatotomy was made with an 11 blade scalpel. A 6 Welsh thoracentesis catheter was placed in the pleural space and fluid was removed. Catheter was then removed and a sterile dressing applie d. There were no immediate complications. The patient tolerated the procedure well and the left the ultrasound suite in stable condition. Chest radiograph is to be obtained. CONCLUSION: Uncomplicated ultrasound guided thoracentesis. Damon Ennis MD on August 20, 2016 at 8:20 Board Certified Radiologist. This report was verified electronically.
[2016-08-20] MEDS: SODIUM CHLORIDE 0.9% FLUSH 5 ML FLUSH FLUSH SCH ×2 (08:28→20:41)
[2016-08-20] MEDS: guaiFENesin E.R. 600 MG TAB PO SCH ×2 (08:28→20:41)
[2016-08-20] MEDS ORDERED: BP MED (09:07)
[2016-08-20] MEDS ORDERED: VIRE300T2 PO (09:07)
[2016-08-20] MEDS ORDERED: [UNRECOGNIZED DRUG - CODE] PO (09:07)
[2016-08-20] MEDS ORDERED: SUST600T PO (09:07)
[2016-08-20] MEDS ORDERED: PHOSPHATE BINDER (09:07)
[2016-08-20] MEDS: ENOXAPARIN SODIUM 30 MG/0.3 ML SYRINGE SQ SCH (12:36)
--- NOTE | 2016-08-20 14:04 | HHI.NPPN ---
Subjective History of Present Illness 45 year old ESRD, HTN, HIV Disease Review of Systems Respiratory Lungs: SOB Objective Data Data 08/19/16 08/20/16 19:00 07:00 Intake Total 240 ml Output Total 4500 ml Balance -4500 ml 240 ml Intake Oral 240 ml Output Hemodialysis 4500 ml # Voids 15 # Bowel Movements 0 Vital Signs Date Time Temp Pulse Resp B/P Pulse Ox O2 Delivery O2 Flow Rate FiO2 08/20/16 10:04 98 Nasal Cannula 3.00 08/20/16 08:18 90 08/20/16 04:53 105 08/20/16 03:50 97.7 79 20 97/53 100 08/20/16 03:31 99 Nasal Cannula 2.00 08/20/16 00:25 97.8 100 20 125/69 100 08/19/16 22:00 98.0 99 20 100/59 97 08/19/16 16:00 98.0 107 20 95/52 98 08/19/16 15:55 95 Nasal Cannula 2.00 -: 08/20/16 0528 08/20/16 0528 Microbiology 08/19/16 Gram Stain - Final, Resulted 08/19/16 Body Fluid Culture - Preliminary, Resulted NO GROWTH IN 24 HOURS. 08/19/16 Fungal Smear - Final, Resulted NO FUNGAL ELEMENTS SEEN. 08/19/16 Fungal Culture, Resulted Pending Physical Exam General Appearance: Well Developed, Well Nourished Neck Neck Exam: Neck Supple Pulmonary Resp Exam: Decreased Bases Cardiology CV Exam: Regular, Normal Sinus Rhythm Gastrointestinal/Abdomen GI Exam: Soft, Non-Tender, Bowel Sounds Present Extremeties Extremities Exam: Trace Edema Assessment/Plan Problem List: (1) End stage renal disease Plan: Patient had hemodialysis yesterday morning 4.5 L removed feels better follow labs strep Pneumoniae in blood treated ID following (2) Pleural effusion Plan: This may need to have Possible thoracenteses (3) Sepsis Plan: Continue with broad-spectrum antibiotic D/W Dr. Caal monitor culture gram positive if staph aureus consider changing P/C (4) Pneumonia Plan: Strep pneumoniae Received vancomycin and ceftriaxone and vancomycin is with hemodialysis (5) HIV disease Plan: Advanced disease Problem Qualifiers (1) Sepsis: Qualified Code: A41.9 - Sepsis, due to unspecified organism Iman Benitez MD Aug 20, 2016 14:04
--- NOTE | 2016-08-20 17:05 | HHI.IDPN ---
Note Infectious Disease Note Patient is post Thoracentesis 08/19/16. Says he feels okay. breathing better. No chills. Afebrile. Blood culture has strep pneumoniae. This is a 45-year-old black male who has known history of AIDS and end-stage renal disease. The patient presented to emergency department with fever. The patient is reported by his girlfriend and himself to have had shortness of breath for 2 weeks and then developed cough 2 days ago and fevers also 2 days ago. PAST MEDICAL HISTORY HIV End-stage renal disease Patient on hemodialysis. Hepatitis C. Hypertension. Left upper extremity AV fistula Dialysis vascular catheter. History of buttock abscess due to staph aureus history of sepsis due to staph aureus history of bacteremia due to Acinetobacter. 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 Current Medications Medications (Trade) Dose Ordered Sig/Karl Route PRN Reason Start Time Stop Time Status Last Admin Dose Admin IV Flush (NS Flush) 2 ml UNSCH PRN FLUSH FLUSH AFTER USING IV ACCESS 08/18/16 11:00 IV Flush (NS Flush) 2 ml BID FLUSH 08/18/16 21:00 08/20/16 08:28 Acetaminophen (Tylenol) 650 mg Q4H PRN PO TEMP > 100.4 08/18/16 11:00 08/18/16 16:28 Ondansetron HCl (Zofran Inj) 4 mg Q6H PRN IVP NAUSEA OR VOMITING 08/18/16 11:00 Prochlorperazine (Compazine Supp) 25 mg Q12H PRN UT NAUSEA OR VOMITING 08/18/16 11:00 Bisacodyl (Dulcolax Supp) 10 mg DAILY PRN UT CONSTIPATION 08/18/16 11:00 Magnesium Hydroxide (Milk Of Magnesia Liq) 30 ml Q12H PRN PO CONSTIPATION 08/18/16 11:00 Sennosides 17.2 mg 17.2 mg Q12H PRN PO CONSTIPATION 08/18/16 11:00 Sodium Chloride (NS 1000 ml Inj) 1,000 ml @ 0 mls/hr Q0M PRN IV For Prime & Rinse Back 08/18/16 18:24 08/19/16 08:25 Heparin Sodium (Porcine) 8000 units 8,000 units UNSCH PRN IVF WITH DIALYSIS 08/18/16 18:30 Sodium Chloride 1,000 ml @ 200 mls/hr Q5H PRN IV WITH DIALYSIS 08/18/16 18:24 08/19/16 08:25 Sodium Chloride (NS 1000 ml Inj) 1,000 ml @ 0 mls/hr Q0M PRN IV WITH DIALYSIS 08/18/16 18:24 Mannitol (Mannitol Inj) 12.5 gm UNSCH PRN IV WITH DIALYSIS 08/18/16 18:30 Albumin Human (Albumin 25% Inj) 25 gm UNSCH PRN IV WITH DIALYSIS 08/18/16 18:30 IV Flush (NS Flush) 5 ml UNSCH PRN IVF WITH DIALYSIS 08/18/16 18:30 08/19/16 08:27 Heparin Sodium (Porcine) (Heparin Inj) UNSCH PRN .XX WITH DIALYSIS 08/18/16 18:30 08/19/16 08:26 Gentamicin Sulfate (Gentamicin (Dialysis) Inj) 20 mg UNSCH PRN IV WITH DIALYSIS 08/18/16 18:30 08/19/16 08:26 Ondansetron HCl (Zofran Inj) 4 mg UNSCH PRN IV WITH DIALYSIS 08/18/16 18:30 Acetaminophen (Tylenol) 650 mg UNSCH PRN PO for headach, pain, temp > 101F 08/18/16 18:30 08/19/16 14:49 Diphenhydramine HCl (Benadryl) 25 mg UNSCH PRN PO for hives/itching/anaphylaxis 08/18/16 18:30 Nitroglycerin (Nitrostat Sl) 0.4 mg UNSCH PRN SL CHEST PAIN 08/18/16 18:30 Clonidine (Catapres) 0.1 mg UNSCH PRN PO for BP > 180/100 X 2 readings 08/18/16 18:30 Epoetin Mati (Epogen Inj) 10,000 units UNSCH PRN IV WITH DIALYSIS 08/18/16 18:30 08/19/16 08:26 Gelatin (Gelfoam 12 Mm/7 Mm Top) 1 foam UNSCH PRN TOP SEE LABEL COMMENTS 08/18/16 18:30 Enoxaparin Sodium (Lovenox Inj) 30 mg Q24H SQ 08/19/16 12:00 08/20/16 12:36 Dextrose (D50w (Vial) Inj) 25 ml UNSCH PRN IV PUSH HYPOGLYCEMIA-SEE COMMENTS 08/19/16 12:00 Glucagon (Glucagon Inj) 1 mg UNSCH PRN OTHER HYPOGLYCEMIA-SEE COMMENTS 08/19/16 12:00 Guaifenesin 600 mg 600 mg BID PO 08/19/16 21:00 08/20/16 08:28 Ceftriaxone Sodium/Sodium Chloride (Rocephin Inj/NS Inj) 100 ml @ 200 mls/hr Q24H IV 08/19/16 18:45 08/19/16 18:40 SOCIAL HISTORY No tobacco, no alcohol. No illicit drugs. FAMILY HISTORY Noncontributory. OBJECTIVE: Vital Signs Date Time Temp Pulse Resp B/P Pulse Ox O2 Delivery O2 Flow Rate FiO2 08/20/16 12:00 98.0 100 16 121/58 100 08/20/16 10:04 98 Nasal Cannula 3.00 08/20/16 08:18 90 08/20/16 08:00 98.0 101 16 104/54 100 08/20/16 04:53 105 08/20/16 03:50 97.7 79 20 97/53 100 08/20/16 03:31 99 Nasal Cannula 2.00 08/20/16 00:25 97.8 100 20 125/69 100 08/19/16 22:00 98.0 99 20 100/59 97 08/19/16 08/19/16 08/20/16 15:00 23:00 07:00 Intake Total 240 ml 0 ml Output Total 4500 ml Balance -4500 ml 240 ml 0 ml Intake Oral 240 ml 0 ml Output Hemodialysis 4500 ml # Voids 13 2 # Bowel Movements 0 0 Laboratory Tests Test 08/19/16 08/19/16 08/20/16 08:30 20:48 05:28 White Blood Count 28.2 TH/MM3 28.6 TH/MM3 25.8 TH/MM3 Red Blood Count 2.65 MIL/MM3 2.52 MIL/MM3 2.50 MIL/MM3 Hemoglobin 8.3 GM/DL 7.7 GM/DL 7.7 GM/DL Hematocrit 26.0 % 24.4 % 24.7 % Mean Corpuscular Volume 98.1 FL 96.5 FL 98.5 FL Mean Corpuscular Hemoglobin 31.2 PG 30.6 PG 30.8 PG Mean Corpuscular Hemoglobin 31.8 % 31.7 % 31.3 % Concent Red Cell Distribution Width 16.0 % 15.6 % 16.2 % Platelet Count 196 TH/MM3 190 TH/MM3 191 TH/MM3 Mean Platelet Volume 8.1 FL 8.3 FL 8.4 FL Neutrophils (%) (Auto) 92.5 % 81.6 % 81.1 % Lymphocytes (%) (Auto) 3.6 % 11.2 % 11.3 % Monocytes (%) (Auto) 3.7 % 6.7 % 6.5 % Eosinophils (%) (Auto) 0.1 % 0.4 % 0.8 % Basophils (%) (Auto) 0.1 % 0.1 % 0.3 % Neutrophils # (Auto) 26.1 TH/MM3 23.4 TH/MM3 20.9 TH/MM3 Lymphocytes # (Auto) 1.0 TH/MM3 3.2 TH/MM3 2.9 TH/MM3 Monocytes # (Auto) 1.0 TH/MM3 1.9 TH/MM3 1.7 TH/MM3 Eosinophils # (Auto) 0.0 TH/MM3 0.1 TH/MM3 0.2 TH/MM3 Basophils # (Auto) 0.0 TH/MM3 0.0 TH/MM3 0.1 TH/MM3 CBC Comment AUTO DIFF DIFF FINAL DIFF FINAL Differential Total Cells 100 Counted Neutrophils % (Manual) 78 % Band Neutrophils % 19 % Lymphocytes % 1 % Monocytes % 2 % Neutrophils # (Manual) 27.4 TH/MM3 Differential Comment FINAL DIFF MANUAL Platelet Estimate NORMAL Platelet Morphology Comment NORMAL Laboratory Tests Test 08/19/16 08/19/16 08/20/16 08:30 20:48 05:28 Sodium Level 131 MEQ/L 134 MEQ/L Potassium Level 4.8 MEQ/L 4.4 MEQ/L Chloride Level 99 MEQ/L 98 MEQ/L Carbon Dioxide Level 22.4 MEQ/L 26.5 MEQ/L Anion Gap 10 MEQ/L 10 MEQ/L Blood Urea Nitrogen 65 MG/DL 57 MG/DL Creatinine 11.58 MG/DL 10.41 MG/DL Estimat Glomerular Filtration 6 ML/MIN 7 ML/MIN Rate Random Glucose 79 MG/DL 57 MG/DL Calcium Level 8.5 MG/DL 8.3 MG/DL Amylase Level 69 U/L Magnesium Level 2.3 MG/DL Microbiology Date/Time Procedure Status Source Growth 08/18/16 08:45 Influenza Types A,B Antigen (KATHIE) Received Nasal Washing Pending 08/18/16 08:50 Aerobic Blood Culture - Final Resulted Blood Peripheral Streptococcus Pneumoniae 08/18/16 08:50 Anaerobic Blood Culture - Preliminary Resulted Streptococcus Pneumoniae 08/18/16 08:55 Aerobic Blood Culture - Preliminary Resulted Blood Peripheral NO GROWTH IN 2 DAYS 08/18/16 08:55 Anaerobic Blood Culture - Preliminary Resulted Streptococcus Pneumoniae 08/18/16 08:58 Influenza Types A,B Antigen (KATHIE) - Final Complete Nasal Washing NEGATIVE FOR FLU A AND B ANTIGEN.... 08/19/16 17:00 Gram Stain - Final Resulted Fluid Pleural Fluid 08/19/16 17:00 Body Fluid Culture - Preliminary Resulted Fluid Pleural Fluid NO GROWTH IN 24 HOURS. 08/19/16 17:00 Fungal Smear - Final Resulted Fluid Pleural Fluid NO FUNGAL ELEMENTS SEEN. 08/19/16 17:00 Fungal Culture Resulted Fluid Pleural Fluid Pending PHYSICAL EXAMINATION IN GENERAL: No acute distress. He is receiving oxygen via nasal cannula. HEAD, EYES, EARS, NOSE, AND THROAT: Head is atraumatic. Extraocular movements grossly intact, pupils reactive to light. No in no icterus. No conjunctival erythema. Nose no swelling. No bleeding. Oropharynx no visible lesions. Mucosa is moist. NECK: Supple without adenopathy. LUNGS: Coarse rhonchi at the right lung field and decreased breath sounds at at the left lung reese and also rhonchi at the left base. HEART: Nl S1 S2. No audible murmurs or rubs or gallops. ABDOMEN: Bowel sounds present, soft, nontender. EXTREMITIES: Warm, edema at the feet. No clubbing, cyanosis. NEUROLOGIC: Nonfocal. SKIN: No rash PSYCHIATRIC: The patient calm and cooperative. IMPRESSION 1. Sepsis. Strep pneumoniae. 2. Left lung effusion / pneumonia. 3. AIDS 4. End-stage renal disease. RECOMMENDATIONS 1. Continue Ceftriaxone. 2. Repeat blood cultures at dialysis tomorrow. 3. Monitor pleural fluid culture. 5. Monitor white blood cell count. 6. Depending on the blood culture result. He may need removal of the dialysis catheter. 7. Monitor clinical status. 8. Continue HAART treatment for the HIV. Patient's girlfriend in room. He wishes not to reveal his HIV status to anyone including family. Moo Caal MD Aug 20, 2016 17:05
[2016-08-20] MEDS: cefTRIAXone INJ 1,000 MG in SODIUM CHLORIDE 0.9% INJ 100 ML IV SCH (18:08)
[2016-08-21] VITALS (8 sets, daily range): BP systolic 111–130; BP diastolic 58–71; PULSE 88–103; RESP 16–18; TEMP 97.4–99; O2SAT 98–100
[2016-08-21] MEDS: RESP: ALBUTEROL 0.63 MG/3 ML NEB (SCH) NEB ×4 (04:12→21:38)
[2016-08-21] MEDS: guaiFENesin E.R. 600 MG TAB PO SCH ×2 (08:00→20:51)
[2016-08-21] MEDS: SODIUM CHLORIDE 0.9% FLUSH 5 ML FLUSH FLUSH SCH ×2 (08:00→20:56)
--- NOTE | 2016-08-21 08:57 | HHI.PR ---
Subjective Remarks Late entry: Patient was seen 08/20/16 at noon Patient is asking me to go home. Say she feels much better. he is ambulating in the room. Says SOB and cough improved after the tap. He is breathing well on NC. No fever or chills. Still feels weak. Says he needs to go back to work. Objective Vitals Vital Signs Date Time Temp Pulse Resp B/P Pulse Ox O2 Delivery O2 Flow Rate FiO2 08/21/16 03:25 97.4 88 16 111/58 98 08/21/16 00:10 97.9 90 16 116/59 99 08/20/16 22:24 98 Nasal Cannula 3.00 08/20/16 21:34 98.4 100 18 117/65 92 08/20/16 19:59 98 08/20/16 16:00 97.2 100 16 106/71 95 08/20/16 12:00 98.0 100 16 121/58 100 08/20/16 10:04 98 Nasal Cannula 3.00 I/O 08/20/16 08/20/16 08/20/16 08/21/16 08/21/16 08/21/16 07:00 15:00 23:00 07:00 15:00 23:00 Intake Total 0 ml 600 ml 480 ml 240 ml Balance 0 ml 600 ml 480 ml 240 ml Intake Oral 0 ml 600 ml 480 ml 240 ml # Voids 2 3 3 2 # Bowel Movements 0 0 0 0 Result Diagram: 08/20/16 0528 08/20/16 0528 Imaging Last Impressions Thoracentesis Ultrasound 08/19/16 0000 Signed Impressions: Service Date/Time: Friday, August 19, 2016 16:41 - CONCLUSION: Uncomplicated ultrasound guided thoracentesis. Damon Ennis MD Chest X-Ray 08/18/16 0845 Signed Impressions: Service Date/Time: Thursday, August 18, 2016 08:45 - CONCLUSION: 1. Large left pleural effusion with some accompanying atelectasis or consolidation at the left mid and lower lung. 2. Mild atelectasis or consolidation at the right base. Parminder Mccormick MD Objective Remarks GENERAL: This is a chronically ill 45 yo AA male patient, well-nourished, well- developed patient, coughing. SKIN: No rashes, ecchymoses or lesions. Cool and dry. HEAD: Atraumatic. Normocephalic. No temporal or scalp tenderness. EYES: Pupils equal round and reactive. Extraocular motions intact. No scleral icterus. No injection or drainage. ENT: Nose without bleeding, purulent drainage or septal hematoma. Throat without erythema, tonsillar hypertrophy or exudate. Uvula midline. Airway patent. NECK: Trachea midline. No JVD or lymphadenopathy. Supple, nontender, no meningeal signs. CARDIOVASCULAR: Regular rate and rhythm without murmurs, gallops, or rubs. RESPIRATORY: Coarse breath sounds, wheezing and rhonchi throughout the posterior lung reese. GASTROINTESTINAL: Abdomen soft, non-tender, nondistended. No hepato-splenomegaly , or palpable masses. No guarding. MUSCULOSKELETAL: Extremities without clubbing, cyanosis, or edema. No joint tenderness, effusion, or edema noted. No calf tenderness. Negative Homans sign bilaterally. NEUROLOGICAL: Awake and alert. Cranial nerves II through XII intact. Motor and sensory grossly within normal limits. Five out of 5 muscle strength in all muscle groups. Normal speech. 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 Patient with sepsis, end-stage renal disease, implanted line, and HIV. Pneumonia source. Chest x-ray shows pleural effusion, consolidation. Sepsis criteria on admission leukocytosis, tachycardia Left lung effusion. Pneumonia with strep pneumo HIV/AIDS ESRD on HD M/W/F. Continue HD, nephro following. Chronic back pain Elevated Troponin 0.09 on admission likely 2/2 decreased clearance missed HD. He denies having any chest pain . Chest x-ray reviewed also findings discussed with Dr Saldana from ED: Large left pleural effusion with some accompanying atelectasis or consolidation of the left mid and lower lung. Mild atelectasis or consolidation of the right base. Blood cx 08/18 with strep pneumo Continue ceftriaxone IV Plan to repeat Blood cx at dialysis 08/21 Pleural fluid cx are pending Cont HAART Rx for HIV Sputum cx pending Pneumococcal and Legionella ag neg Consult ID specialist Consult pulm Resume home HIV meds: Tenofovir 300 Mg PO Q7D. Emtricitabine 200 Mg Cap Q96H. Efavirenz 600 Mg PO HS. Atovaquone 1,500 Mg PO DAILY DVT ppx SCD/TEDs lovenox Code Status full code Discussed Condition With patient, nurse Emmy Day MD Aug 21, 2016 08:57
--- NOTE | 2016-08-21 09:04 | HHI.PR ---
Subjective Remarks Says he is coughing more today and he feels sob. No fevers overnight. No n/v/d/ c. Feels weak, however improved. Objective Vitals Vital Signs Date Time Temp Pulse Resp B/P Pulse Ox O2 Delivery O2 Flow Rate FiO2 08/21/16 03:25 97.4 88 16 111/58 98 08/21/16 00:10 97.9 90 16 116/59 99 08/20/16 22:24 98 Nasal Cannula 3.00 08/20/16 21:34 98.4 100 18 117/65 92 08/20/16 19:59 98 08/20/16 16:00 97.2 100 16 106/71 95 08/20/16 12:00 98.0 100 16 121/58 100 08/20/16 10:04 98 Nasal Cannula 3.00 I/O 08/20/16 08/20/16 08/20/16 08/21/16 08/21/16 08/21/16 07:00 15:00 23:00 07:00 15:00 23:00 Intake Total 0 ml 600 ml 480 ml 240 ml Balance 0 ml 600 ml 480 ml 240 ml Intake Oral 0 ml 600 ml 480 ml 240 ml # Voids 2 3 3 2 # Bowel Movements 0 0 0 0 Result Diagram: 08/20/16 0528 08/20/16 0528 Imaging Last Impressions Thoracentesis Ultrasound 08/19/16 0000 Signed Impressions: Service Date/Time: Friday, August 19, 2016 16:41 - CONCLUSION: Uncomplicated ultrasound guided thoracentesis. Damon Ennis MD Chest X-Ray 08/18/16 0845 Signed Impressions: Service Date/Time: Thursday, August 18, 2016 08:45 - CONCLUSION: 1. Large left pleural effusion with some accompanying atelectasis or consolidation at the left mid and lower lung. 2. Mild atelectasis or consolidation at the right base. Parminder Mccormick MD Objective Remarks GENERAL: This is a chronically ill 45 yo AA male patient, well-nourished, well- developed patient, coughing. SKIN: No rashes, ecchymoses or lesions. Cool and dry. HEAD: Atraumatic. Normocephalic. No temporal or scalp tenderness. EYES: Pupils equal round and reactive. Extraocular motions intact. No scleral icterus. No injection or drainage. ENT: Nose without bleeding, purulent drainage or septal hematoma. Throat without erythema, tonsillar hypertrophy or exudate. Uvula midline. Airway patent. NECK: Trachea midline. No JVD or lymphadenopathy. Supple, nontender, no meningeal signs. CARDIOVASCULAR: Regular rate and rhythm without murmurs, gallops, or rubs. RESPIRATORY: Coarse breath sounds, wheezing and rhonchi throughout the posterior lung reese. GASTROINTESTINAL: Abdomen soft, non-tender, nondistended. No hepato-splenomegaly , or palpable masses. No guarding. MUSCULOSKELETAL: Extremities without clubbing, cyanosis, or edema. No joint tenderness, effusion, or edema noted. No calf tenderness. Negative Homans sign bilaterally. NEUROLOGICAL: Awake and alert. Cranial nerves II through XII intact. Motor and sensory grossly within normal limits. Five out of 5 muscle strength in all muscle groups. Normal speech. 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 Patient with sepsis, end-stage renal disease, implanted line, and HIV. Pneumonia source. Chest x-ray shows pleural effusion, consolidation. Sepsis criteria on admission leukocytosis, tachycardia Left lung effusion. Pneumonia with strep pneumo HIV/AIDS ESRD on HD M/W/. Continue HD, nephro following. Chronic back pain Elevated Troponin 0.09 on admission likely 2/2 decreased clearance missed HD. He denies having any chest pain . Chest x-ray reviewed also findings discussed with Dr Saldana from ED: Large left pleural effusion with some accompanying atelectasis or consolidation of the left mid and lower lung. Mild atelectasis or consolidation of the right base. Blood cx 08/18 with strep pneumo Continue ceftriaxone IV Plan to repeat Blood cx at dialysis 08/21 Pleural fluid cx are pending Cont HAART Rx for HIV Sputum cx pending Pneumococcal and Legionella ag neg Consult ID specialist Consult pulm Resume home HIV meds: Tenofovir 300 Mg PO Q7D. Emtricitabine 200 Mg Cap Q96H. Efavirenz 600 Mg PO HS. Atovaquone 1,500 Mg PO DAILY DVT ppx SCD/TEDs lovenox Code Status full code Discussed Condition With patient, nurse Emmy Day MD Aug 21, 2016 09:04
--- NOTE | 2016-08-21 11:19 | HHI.NPPN ---
Subjective History of Present Illness 45 year old ESRD, HTN, HIV Disease Interval History s/p Thoracentesis Review of Systems Respiratory Lungs: SOB Objective Data Data 08/20/16 08/21/16 19:00 07:00 Intake Total 600 ml 720 ml Balance 600 ml 720 ml Intake Oral 600 ml 720 ml # Voids 3 5 # Bowel Movements 0 0 Vital Signs Date Time Temp Pulse Resp B/P Pulse Ox O2 Delivery O2 Flow Rate FiO2 08/21/16 09:10 98 Nasal Cannula 3.00 08/21/16 08:35 90 08/21/16 03:25 97.4 88 16 111/58 98 08/21/16 00:10 97.9 90 16 116/59 99 08/20/16 22:24 98 Nasal Cannula 3.00 08/20/16 21:34 98.4 100 18 117/65 92 08/20/16 19:59 98 08/20/16 16:00 97.2 100 16 106/71 95 08/20/16 12:00 98.0 100 16 121/58 100 -: 08/20/16 0528 08/20/16 0528 Microbiology 08/21/16 Aerobic Blood Culture, Received Pending 08/21/16 Anaerobic Blood Culture, Received Pending 08/21/16 Aerobic Blood Culture, Received Pending 08/21/16 Anaerobic Blood Culture, Received Pending Physical Exam General Appearance: Well Developed, Well Nourished Neck Neck Exam: Neck Supple Pulmonary Resp Exam: Decreased Bases Cardiology CV Exam: Regular, Normal Sinus Rhythm Gastrointestinal/Abdomen GI Exam: Soft, Non-Tender, Bowel Sounds Present Extremeties Extremities Exam: Trace Edema Assessment/Plan Problem List: (1) End stage renal disease Plan: Patient seen during hemodialysis proceedings 2L UF tolerating it well 1L pleural fluid via Thoracentesis drained strep Pneumoniae in blood treated ID following (2) Pleural effusion Plan: L thoracenteses done 1 L (3) Sepsis Plan: Continue with broad-spectrum antibiotic D/W Dr. Caal monitor culture gram positive if staph aureus consider changing P/C (4) Pneumonia Plan: Strep pneumoniae Received vancomycin and ceftriaxone and vancomycin is with hemodialysis (5) HIV disease Plan: Advanced disease Problem Qualifiers (1) Sepsis: Qualified Code: A41.9 - Sepsis, due to unspecified organism Iman Benitez MD Aug 21, 2016 11:19
[2016-08-21] MEDS: VANCOMYCIN INJ 1,000 MG in SODIUM CHLOR 0.9% 250 ML INJ 250 ML IV SCH (12:59)
[2016-08-21] MEDS: HEPARIN SODIUM - IV 10,000 UNITS/10 ML VIAL PRN (13:00)
[2016-08-21] MEDS: GENTAMICIN SULFATE (DIALYSIS USE ONLY) 20 MG/2 ML VIAL IV PRN (13:00)
[2016-08-21] MEDS: EPOETIN ALFA 10,000 UNITS/ML VIAL IV PRN (13:00)
[2016-08-21] MEDS: ENOXAPARIN SODIUM 30 MG/0.3 ML SYRINGE SQ SCH (14:31)
[2016-08-21] MEDS: EMTRICITABINE 200 MG CAP PO SCH (14:31)
[2016-08-21] MEDS: BENZONATATE 100 MG CAP PO PRN ×2 (14:40→20:57)
[2016-08-21] MEDS: TENOFOVIR DISOPROXIL FUMARATE 300 MG TAB PO SCH (14:49)
--- NOTE | 2016-08-21 15:51 | HHI.IDPN ---
Note Infectious Disease Note Patient feels okay. Up in chair. Has cough without sputum production. Patient is post Thoracentesis 08/19/16. breathing better. No chills. Afebrile. Blood culture has strep pneumoniae. This is a 45-year-old black male who has known history of AIDS and end-stage renal disease. The patient presented to emergency department with fever. The patient is reported by his girlfriend and himself to have had shortness of breath for 2 weeks and then developed cough 2 days ago and fevers also 2 days ago. PAST MEDICAL HISTORY HIV End-stage renal disease Patient on hemodialysis. Hepatitis C. Hypertension. Left upper extremity AV fistula Dialysis vascular catheter. History of buttock abscess due to staph aureus history of sepsis due to staph aureus history of bacteremia due to Acinetobacter. 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 Current Medications Medications (Trade) Dose Ordered Sig/Karl Route PRN Reason Start Time Stop Time Status Last Admin Dose Admin IV Flush (NS Flush) 2 ml UNSCH PRN FLUSH FLUSH AFTER USING IV ACCESS 08/18/16 11:00 IV Flush (NS Flush) 2 ml BID FLUSH 08/18/16 21:00 08/21/16 08:00 Acetaminophen (Tylenol) 650 mg Q4H PRN PO TEMP > 100.4 08/18/16 11:00 08/18/16 16:28 Ondansetron HCl (Zofran Inj) 4 mg Q6H PRN IVP NAUSEA OR VOMITING 08/18/16 11:00 Prochlorperazine (Compazine Supp) 25 mg Q12H PRN MO NAUSEA OR VOMITING 08/18/16 11:00 Bisacodyl (Dulcolax Supp) 10 mg DAILY PRN MO CONSTIPATION 08/18/16 11:00 Magnesium Hydroxide (Milk Of Magnesia Liq) 30 ml Q12H PRN PO CONSTIPATION 08/18/16 11:00 Sennosides 17.2 mg 17.2 mg Q12H PRN PO CONSTIPATION 08/18/16 11:00 Sodium Chloride (NS 1000 ml Inj) 1,000 ml @ 0 mls/hr Q0M PRN IV For Prime & Rinse Back 08/18/16 18:24 08/19/16 08:25 Heparin Sodium (Porcine) 8000 units 8,000 units UNSCH PRN IVF WITH DIALYSIS 08/18/16 18:30 Sodium Chloride 1,000 ml @ 200 mls/hr Q5H PRN IV WITH DIALYSIS 08/18/16 18:24 08/19/16 08:25 Sodium Chloride (NS 1000 ml Inj) 1,000 ml @ 0 mls/hr Q0M PRN IV WITH DIALYSIS 08/18/16 18:24 Mannitol (Mannitol Inj) 12.5 gm UNSCH PRN IV WITH DIALYSIS 08/18/16 18:30 Albumin Human (Albumin 25% Inj) 25 gm UNSCH PRN IV WITH DIALYSIS 08/18/16 18:30 IV Flush (NS Flush) 5 ml UNSCH PRN IVF WITH DIALYSIS 08/18/16 18:30 08/19/16 08:27 Heparin Sodium (Porcine) (Heparin Inj) UNSCH PRN .XX WITH DIALYSIS 08/18/16 18:30 08/21/16 13:00 Gentamicin Sulfate (Gentamicin (Dialysis) Inj) 20 mg UNSCH PRN IV WITH DIALYSIS 08/18/16 18:30 08/21/16 13:00 Ondansetron HCl (Zofran Inj) 4 mg UNSCH PRN IV WITH DIALYSIS 08/18/16 18:30 Acetaminophen (Tylenol) 650 mg UNSCH PRN PO for headach, pain, temp > 101F 08/18/16 18:30 08/19/16 14:49 Diphenhydramine HCl (Benadryl) 25 mg UNSCH PRN PO for hives/itching/anaphylaxis 08/18/16 18:30 Nitroglycerin (Nitrostat Sl) 0.4 mg UNSCH PRN SL CHEST PAIN 08/18/16 18:30 Clonidine (Catapres) 0.1 mg UNSCH PRN PO for BP > 180/100 X 2 readings 08/18/16 18:30 Epoetin Mati (Epogen Inj) 10,000 units UNSCH PRN IV WITH DIALYSIS 08/18/16 18:30 08/21/16 13:00 Gelatin (Gelfoam 12 Mm/7 Mm Top) 1 foam UNSCH PRN TOP SEE LABEL COMMENTS 08/18/16 18:30 Enoxaparin Sodium (Lovenox Inj) 30 mg Q24H SQ 08/19/16 12:00 08/21/16 14:31 Dextrose (D50w (Vial) Inj) 25 ml UNSCH PRN IV PUSH HYPOGLYCEMIA-SEE COMMENTS 08/19/16 12:00 Glucagon (Glucagon Inj) 1 mg UNSCH PRN OTHER HYPOGLYCEMIA-SEE COMMENTS 08/19/16 12:00 Guaifenesin 600 mg 600 mg BID PO 08/19/16 21:00 08/21/16 08:00 Ceftriaxone Sodium/Sodium Chloride (Rocephin Inj/NS Inj) 100 ml @ 200 mls/hr Q24H IV 08/19/16 18:45 08/20/16 18:08 Benzonatate (Tessalon) 100 mg TID PRN PO cough 08/21/16 09:00 08/21/16 14:40 Efavirenz (Sustiva) 600 mg HS PO 08/21/16 21:00 Emtricitabine (Emtriva) 200 mg Q4D PO 08/21/16 11:00 08/21/16 14:31 Tenofovir Disoproxil Fumarate (Viread) 300 mg DAILY PO 08/21/16 12:45 08/21/16 14:49 SOCIAL HISTORY No tobacco, no alcohol. No illicit drugs. FAMILY HISTORY Noncontributory. OBJECTIVE: Vital Signs Date Time Temp Pulse Resp B/P Pulse Ox O2 Delivery O2 Flow Rate FiO2 08/21/16 09:10 98 Nasal Cannula 3.00 08/21/16 08:35 90 08/21/16 03:25 97.4 88 16 111/58 98 08/21/16 00:10 97.9 90 16 116/59 99 08/20/16 22:24 98 Nasal Cannula 3.00 08/20/16 21:34 98.4 100 18 117/65 92 08/20/16 19:59 98 08/20/16 16:00 97.2 100 16 106/71 95 Vital Signs Date Time Temp Pulse Resp B/P Pulse Ox O2 Delivery O2 Flow Rate FiO2 08/20/16 12:00 98.0 100 16 121/58 100 08/20/16 10:04 98 Nasal Cannula 3.00 08/20/16 08:18 90 08/20/16 08:00 98.0 101 16 104/54 100 08/20/16 04:53 105 08/20/16 03:50 97.7 79 20 97/53 100 08/20/16 03:31 99 Nasal Cannula 2.00 08/20/16 00:25 97.8 100 20 125/69 100 08/19/16 22:00 98.0 99 20 100/59 97 Laboratory Tests Test 08/19/16 08/20/16 20:48 05:28 White Blood Count 28.6 TH/MM3 25.8 TH/MM3 Red Blood Count 2.52 MIL/MM3 2.50 MIL/MM3 Hemoglobin 7.7 GM/DL 7.7 GM/DL Hematocrit 24.4 % 24.7 % Mean Corpuscular Volume 96.5 FL 98.5 FL Mean Corpuscular Hemoglobin 30.6 PG 30.8 PG Mean Corpuscular Hemoglobin 31.7 % 31.3 % Concent Red Cell Distribution Width 15.6 % 16.2 % Platelet Count 190 TH/MM3 191 TH/MM3 Mean Platelet Volume 8.3 FL 8.4 FL Neutrophils (%) (Auto) 81.6 % 81.1 % Lymphocytes (%) (Auto) 11.2 % 11.3 % Monocytes (%) (Auto) 6.7 % 6.5 % Eosinophils (%) (Auto) 0.4 % 0.8 % Basophils (%) (Auto) 0.1 % 0.3 % Neutrophils # (Auto) 23.4 TH/MM3 20.9 TH/MM3 Lymphocytes # (Auto) 3.2 TH/MM3 2.9 TH/MM3 Monocytes # (Auto) 1.9 TH/MM3 1.7 TH/MM3 Eosinophils # (Auto) 0.1 TH/MM3 0.2 TH/MM3 Basophils # (Auto) 0.0 TH/MM3 0.1 TH/MM3 CBC Comment DIFF FINAL DIFF FINAL Differential Comment Laboratory Tests Test 08/19/16 08/20/16 20:48 05:28 Amylase Level 69 U/L Sodium Level 134 MEQ/L Potassium Level 4.4 MEQ/L Chloride Level 98 MEQ/L Carbon Dioxide Level 26.5 MEQ/L Anion Gap 10 MEQ/L Blood Urea Nitrogen 57 MG/DL Creatinine 10.41 MG/DL Estimat Glomerular Filtration 7 ML/MIN Rate Random Glucose 57 MG/DL Calcium Level 8.3 MG/DL Magnesium Level 2.3 MG/DL Microbiology Date/Time Procedure Status Source Growth 08/19/16 17:00 Gram Stain - Final Resulted Fluid Pleural Fluid 08/19/16 17:00 Body Fluid Culture - Preliminary Resulted Fluid Pleural Fluid NO GROWTH IN 48 HOURS. 08/19/16 17:00 Fungal Smear - Final Resulted Fluid Pleural Fluid NO FUNGAL ELEMENTS SEEN. 08/19/16 17:00 Fungal Culture Resulted Fluid Pleural Fluid Pending 08/21/16 10:00 Aerobic Blood Culture Received Blood Other Pending 08/21/16 10:00 Anaerobic Blood Culture Received Blood Other Pending 08/21/16 10:00 Aerobic Blood Culture Received Blood Other Pending 08/21/16 10:00 Anaerobic Blood Culture Received Blood Other Pending Microbiology Date/Time Procedure Status Source Growth 08/18/16 08:45 Influenza Types A,B Antigen (KATHIE) Received Nasal Washing Pending 08/18/16 08:50 Aerobic Blood Culture - Final Resulted Blood Peripheral Streptococcus Pneumoniae 08/18/16 08:50 Anaerobic Blood Culture - Preliminary Resulted Streptococcus Pneumoniae 08/18/16 08:55 Aerobic Blood Culture - Preliminary Resulted Blood Peripheral NO GROWTH IN 2 DAYS 08/18/16 08:55 Anaerobic Blood Culture - Preliminary Resulted Streptococcus Pneumoniae 08/18/16 08:58 Influenza Types A,B Antigen (KATHIE) - Final Complete Nasal Washing NEGATIVE FOR FLU A AND B ANTIGEN.... 08/19/16 17:00 Gram Stain - Final Resulted Fluid Pleural Fluid 08/19/16 17:00 Body Fluid Culture - Preliminary Resulted Fluid Pleural Fluid NO GROWTH IN 24 HOURS. 08/19/16 17:00 Fungal Smear - Final Resulted Fluid Pleural Fluid NO FUNGAL ELEMENTS SEEN. 08/19/16 17:00 Fungal Culture Resulted Fluid Pleural Fluid Pending PHYSICAL EXAMINATION IN GENERAL: No acute distress. HEAD, EYES, EARS, NOSE, AND THROAT: Head is atraumatic. Extraocular movements grossly intact, pupils reactive to light. No in no icterus. No conjunctival erythema. Nose no swelling. No bleeding. Oropharynx no visible lesions. Mucosa is moist. NECK: Supple without adenopathy. LUNGS: Coarse rhonchi at the right lung field and decreased breath sounds at at the left lung reese and also rhonchi at the left base. HEART: Nl S1 S2. No audible murmurs or rubs or gallops. ABDOMEN: Bowel sounds present, soft, nontender. EXTREMITIES: Warm, edema at the feet. No clubbing, cyanosis. NEUROLOGIC: Nonfocal. SKIN: No rash PSYCHIATRIC: The patient calm and cooperative. IMPRESSION 1. Sepsis. Strep pneumoniae. 2. Left lung effusion / pneumonia. 3. AIDS 4. End-stage renal disease. RECOMMENDATIONS 1. Continue Ceftriaxone. 2. Follow blood cultures next couple of days. 3. Monitor white blood cell count. 4. Depending on the blood culture result. If positive he may need removal of the dialysis catheter. Decision on wednesday. 5. Monitor clinical status. 6. Continue HAART treatment for the HIV. Patient's girlfriend in room. He wishes not to reveal his HIV status to anyone including family. Moo Caal MD Aug 21, 2016 15:51
[2016-08-21] MEDS: cefTRIAXone INJ 1,000 MG in SODIUM CHLORIDE 0.9% INJ 100 ML IV SCH (17:15)
[2016-08-22] VITALS (8 sets, daily range): BP systolic 116–161; BP diastolic 69–88; PULSE 77–100; RESP 16–22; TEMP 97.3–98.3; O2SAT 95–100
[2016-08-22] MEDS: RESP: ALBUTEROL 0.63 MG/3 ML NEB (SCH) NEB ×3 (03:49→17:21)
[2016-08-22] MEDS: SODIUM CHLORIDE 0.9% FLUSH 5 ML FLUSH FLUSH SCH ×2 (08:35→21:34)
[2016-08-22] MEDS: guaiFENesin E.R. 600 MG TAB PO SCH ×2 (08:35→20:00)
[2016-08-22] MEDS: TENOFOVIR DISOPROXIL FUMARATE 300 MG TAB PO SCH (08:35)
[2016-08-22] MEDS: BENZONATATE 100 MG CAP PO PRN ×3 (08:36→21:34)
--- NOTE | 2016-08-22 11:20 | HHI.PR ---
Subjective Remarks Still with cough. No fevers. Denies chest pain. With sob. Objective Vitals Vital Signs Date Time Temp Pulse Resp B/P Pulse Ox O2 Delivery O2 Flow Rate FiO2 08/22/16 09:38 97 Nasal Cannula 2.00 08/22/16 08:00 97.8 77 22 161/81 95 08/22/16 04:00 98.0 94 16 132/86 97 08/22/16 00:00 98.3 100 16 129/77 95 08/21/16 21:38 98 Nasal Cannula 2.00 08/21/16 20:00 99.0 100 16 130/71 100 08/21/16 16:00 98.6 103 18 127/70 98 I/O 08/21/16 08/21/16 08/21/16 08/22/16 08/22/16 08/22/16 07:00 15:00 23:00 07:00 15:00 23:00 Intake Total 240 ml 600 ml 820 ml 720 ml Output Total 2360 ml Balance 240 ml -1760 ml 820 ml 720 ml Intake Oral 240 ml 600 ml 820 ml 720 ml Output Urine Total 360 ml Hemodialysis 2000 ml # Voids 2 3 4 # Bowel Movements 0 1 1 Result Diagram: 08/20/16 0528 08/20/16 0528 Imaging Last Impressions Thoracentesis Ultrasound 08/19/16 0000 Signed Impressions: Service Date/Time: Friday, August 19, 2016 16:41 - CONCLUSION: Uncomplicated ultrasound guided thoracentesis. Damon Ennis MD Chest X-Ray 08/19/16 0000 Signed Impressions: Service Date/Time: Friday, August 19, 2016 17:13 - CONCLUSION: 1. Consolidative changes and fluid persist on the left in spite of thoracentesis. 2. There is no pneumothorax evident. Kip Haque MD FACR Objective Remarks GENERAL: This is a chronically ill 45 yo AA male patient, well-nourished, well- developed patient, coughing. SKIN: No rashes, ecchymoses or lesions. Cool and dry. HEAD: Atraumatic. Normocephalic. No temporal or scalp tenderness. EYES: Pupils equal round and reactive. Extraocular motions intact. No scleral icterus. No injection or drainage. ENT: Nose without bleeding, purulent drainage or septal hematoma. Throat without erythema, tonsillar hypertrophy or exudate. Uvula midline. Airway patent. NECK: Trachea midline. No JVD or lymphadenopathy. Supple, nontender, no meningeal signs. CARDIOVASCULAR: Regular rate and rhythm without murmurs, gallops, or rubs. RESPIRATORY: Coarse breath sounds, wheezing and rhonchi throughout the posterior lung reese. GASTROINTESTINAL: Abdomen soft, non-tender, nondistended. No hepato-splenomegaly , or palpable masses. No guarding. MUSCULOSKELETAL: Extremities without clubbing, cyanosis, or edema. No joint tenderness, effusion, or edema noted. No calf tenderness. Negative Homans sign bilaterally. NEUROLOGICAL: Awake and alert. Cranial nerves II through XII intact. Motor and sensory grossly within normal limits. Five out of 5 muscle strength in all muscle groups. Normal speech. 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 Patient with sepsis, end-stage renal disease, implanted line, and HIV. Pneumonia source. Chest x-ray shows pleural effusion, consolidation. Sepsis criteria on admission leukocytosis, tachycardia. Bacteremia strep pneumo and staph coag neg. Left lung effusion. Pneumonia with strep pneumo HIV/AIDS ESRD on HD M/W/F. Continue HD, nephro following. Chronic back pain Elevated Troponin 0.09 on admission likely 2/2 decreased clearance missed HD. He denies having any chest pain . Chest x-ray reviewed also findings discussed with Dr Saldana from ED: Large left pleural effusion with some accompanying atelectasis or consolidation of the left mid and lower lung. Mild atelectasis or consolidation of the right base. Blood cx 08/18 with strep pneumo Continue ceftriaxone IV Plan to repeat Blood cx at dialysis 08/21 Pleural fluid cx are pending Cont HAART Rx for HIV Sputum cx pending Pneumococcal and Legionella ag neg Consult ID specialist Consult pulm Resume home HIV meds: Tenofovir 300 Mg PO Q7D. Emtricitabine 200 Mg Cap Q96H. Efavirenz 600 Mg PO HS. Atovaquone 1,500 Mg PO DAILY DVT ppx SCD/TEDs lovenox Code Status full code Discussed Condition With patient, nurse Emmy Day MD Aug 22, 2016 11:20
[2016-08-22] MEDS: ENOXAPARIN SODIUM 30 MG/0.3 ML SYRINGE SQ SCH (12:06)
--- NOTE | 2016-08-22 16:10 | HHI.NPPN ---
Subjective History of Present Illness 45 year old ESRD, HTN, HIV Disease Additional Remarks No acute complaints, wants to go home soon. Review of Systems Respiratory Lungs: SOB Objective Data Data 08/21/16 08/22/16 19:00 07:00 Intake Total 600 ml 1540 ml Output Total 2360 ml Balance -1760 ml 1540 ml Intake Oral 600 ml 1540 ml Output Urine Total 360 ml Hemodialysis 2000 ml # Voids 7 # Bowel Movements 1 1 Vital Signs Date Time Temp Pulse Resp B/P Pulse Ox O2 Delivery O2 Flow Rate FiO2 08/22/16 12:00 98.3 93 16 131/69 99 08/22/16 09:38 97 Nasal Cannula 2.00 08/22/16 04:00 98.0 94 16 132/86 97 08/22/16 00:00 98.3 100 16 129/77 95 08/21/16 21:38 98 Nasal Cannula 2.00 08/21/16 20:00 99.0 100 16 130/71 100 -: 08/20/16 0528 08/20/16 0528 Physical Exam General Appearance: Well Developed, Well Nourished Neck Neck Exam: Neck Supple Pulmonary Resp Exam: Decreased Bases Cardiology CV Exam: Regular, Normal Sinus Rhythm Gastrointestinal/Abdomen GI Exam: Soft, Non-Tender, Bowel Sounds Present Extremeties Extremities Exam: Trace Edema Assessment/Plan Problem List: (1) End stage renal disease Plan: HD done Wednesday, plan next HD Wednesday s/p thoracentesis drained strep Pneumoniae in blood treated ID following (2) Pleural effusion Plan: L thoracenteses done 1 L (3) Sepsis Plan: Continue with broad-spectrum antibiotic Monitor cultures - negative to date, with initial coag neagative staph If catheter needs to be changed, may consider for over-wire catheter exchange to preserve vein sites. Afebrile now on antibiotics. (4) Pneumonia Plan: Strep pneumoniae Received vancomycin and ceftriaxone and vancomycin is with hemodialysis (5) HIV disease Plan: Advanced disease Problem Qualifiers (1) Sepsis: Qualified Code: A41.9 - Sepsis, due to unspecified organism Cornell Tejeda MD Aug 22, 2016 16:10
--- NOTE | 2016-08-22 16:22 | RADRPT ---
EXAM DATE/TIME: 08/22/2016 15:10 [facility] COMPARISON: CT THORAX W/O CONTRAST, August 19, 2015, 15:23. INDICATIONS : Pneumonia. RADIATION DOSE: 5.03 CTDIvol (mGy) MEDICAL HISTORY : Hypertension. Renal failure, chronic. HIV. SURGICAL HISTORY : None. ENCOUNTER: Initial ACUITY: 1 day PAIN SCALE: 0/10 LOCATION: Chest TECHNIQUE: Volumetric scanning of the chest was performed. Using automated exposure control and adjustment of t he mA and/or kV according to patient size, radiation dose was kept as low as reasonably achievable to obtain optimal diagnostic quality images. FINDINGS: There is a moderate left pleural effusion. There is accompanying increased density in the left mid a nd lower lung likely representing some consolidation or atelectasis. The right lung demonstrates melva e mild patchy areas of density at the right lower lung and in the subpleural right midlung likely rep resenting areas of atelectasis. A significant right-sided effusion is not present. The mediastinal structures appear grossly intact. The patient has a right internal jugular central line in place. T he visualized structures in the upper abdomen are unremarkable. CONCLUSION: Moderate left pleural effusion with accompanying areas of atelectasis or consolidation. There is melva e minimal patchy atelectasis or consolidation at the right lung. Parminder Mccormick MD on August 22, 2016 at 16:11 Board Certified Radiologist. This report was verified electronically.
[2016-08-22] MEDS: cefTRIAXone INJ 1,000 MG in SODIUM CHLORIDE 0.9% INJ 100 ML IV SCH (17:48)
[2016-08-23] VITALS (8 sets, daily range): BP systolic 130–151; BP diastolic 65–86; PULSE 82–94; RESP 16–18; TEMP 97.2–98.1; O2SAT 96–100
[2016-08-23 07:41] LABS: AUTOMATED NEUTROPHIL # 4.6 TH/MM3 (1.8-7.7); BASOPHIL % 0.4 % (0.0-2.0); EOSINOPHIL # 0.5 TH/MM3 (0-0.4); EOSINOPHIL % 5.7 % (0.0-4.0); HEMATOCRIT 24.5 % (39.0-51.0); LYMPH % 28.2 % (9.0-44.0); LYMPHOCYTE # 2.6 TH/MM3 (1.0-4.8); MEAN CORPUSCULAR HEMOGLOBIN 31.7 PG (27.0-34.0); MONO % 16.1 % (0.0-8.0); NEUT % 49.6 % (16.0-70.0); PLATELET COUNT 209 TH/MM3 (150-450); RED BLOOD COUNT 2.47 MIL/MM3 (4.50-5.90); RED CELL DISTRIBUTION WIDTH 15.9 % (11.6-17.2); WHITE BLOOD COUNT 9.3 TH/MM3 (4.0-11.0)
[2016-08-23 07:43] LABS: HEMO FLAGS AUTO DIFF
[2016-08-23 08:00] LABS: BICARBONATE 29.3 MEQ/L (21.0-32.0)
[2016-08-23] MEDS: BENZONATATE 100 MG CAP PO PRN ×3 (08:43→23:55)
[2016-08-23] MEDS: SODIUM CHLORIDE 0.9% FLUSH 5 ML FLUSH FLUSH SCH ×2 (08:43→21:31)
[2016-08-23] MEDS: guaiFENesin E.R. 600 MG TAB PO SCH ×2 (08:43→21:31)
[2016-08-23] MEDS: TENOFOVIR DISOPROXIL FUMARATE 300 MG TAB PO SCH (08:43)
[2016-08-23 09:50] LABS: SCAN/DIFF AUTO DIFF CONFIRMED
--- NOTE | 2016-08-23 10:50 | HHI.PR ---
Subjective Remarks Patient appears in nad. Still with cough and sob. At the margin of the bed. No fever overnight. No n/v/d/c. Concerned because he did missed court, discussed with CM Objective Vitals Vital Signs Date Time Temp Pulse Resp B/P Pulse Ox O2 Delivery O2 Flow Rate FiO2 08/23/16 08:00 97.4 91 16 134/71 99 08/23/16 04:00 98.0 88 18 145/73 100 08/23/16 00:00 98.1 94 18 130/65 100 08/22/16 20:00 94 08/22/16 20:00 97.8 89 22 144/88 100 08/22/16 16:00 97.3 90 16 116/85 100 08/22/16 12:00 98.3 93 16 131/69 99 I/O 08/22/16 08/22/16 08/22/16 08/23/16 08/23/16 08/23/16 07:00 15:00 23:00 07:00 15:00 23:00 Intake Total 720 ml 360 ml 640 ml 480 ml Balance 720 ml 360 ml 640 ml 480 ml Intake Oral 720 ml 360 ml 640 ml 480 ml # Voids 4 2 3 # Bowel Movements 2 2 Result Diagram: 08/23/16 0645 08/23/16 0645 Imaging Last Impressions Chest CT 08/22/16 0000 Signed Impressions: Service Date/Time: Monday, August 22, 2016 15:10 - CONCLUSION: Moderate left pleural effusion with accompanying areas of atelectasis or consolidation. There is some minimal patchy atelectasis or consolidation at the right lung. Parminder Mccormick MD Thoracentesis Ultrasound 08/19/16 0000 Signed Impressions: Service Date/Time: Friday, August 19, 2016 16:41 - CONCLUSION: Uncomplicated ultrasound guided thoracentesis. Damon Ennis MD Chest X-Ray 08/19/16 0000 Signed Impressions: Service Date/Time: Friday, August 19, 2016 17:13 - CONCLUSION: 1. Consolidative changes and fluid persist on the left in spite of thoracentesis. 2. There is no pneumothorax evident. Kip Haque MD FACR Objective Remarks GENERAL: This is a chronically ill 45 yo AA male patient, well-nourished, well- developed patient, coughing. SKIN: No rashes, ecchymoses or lesions. Cool and dry. HEAD: Atraumatic. Normocephalic. No temporal or scalp tenderness. EYES: Pupils equal round and reactive. Extraocular motions intact. No scleral icterus. No injection or drainage. ENT: Nose without bleeding, purulent drainage or septal hematoma. Throat without erythema, tonsillar hypertrophy or exudate. Uvula midline. Airway patent. NECK: Trachea midline. No JVD or lymphadenopathy. Supple, nontender, no meningeal signs. CARDIOVASCULAR: Regular rate and rhythm without murmurs, gallops, or rubs. RESPIRATORY: Coarse breath sounds, wheezing and rhonchi throughout the posterior lung reese. GASTROINTESTINAL: Abdomen soft, non-tender, nondistended. No hepato-splenomegaly , or palpable masses. No guarding. MUSCULOSKELETAL: Extremities without clubbing, cyanosis, or edema. No joint tenderness, effusion, or edema noted. No calf tenderness. Negative Homans sign bilaterally. NEUROLOGICAL: Awake and alert. Cranial nerves II through XII intact. Motor and sensory grossly within normal limits. Five out of 5 muscle strength in all muscle groups. Normal speech. 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 Patient with sepsis, end-stage renal disease, implanted line, and HIV. Pneumonia source. Chest x-ray shows pleural effusion, consolidation. Sepsis criteria on admission leukocytosis, tachycardia. Bacteremia strep pneumo and staph coag neg. Left lung effusion. Pneumonia with strep pneumo. S/P thoracentesis 08/18/16. CT worsening effusion. might need repeat thoracentesis Respiratory failure requiring O2 supplement HIV/AIDS ESRD on HD M/W/. Continue HD, nephro following. Chronic back pain Elevated Troponin 0.09 on admission likely 2/2 decreased clearance missed HD. He denies having any chest pain . Chest x-ray reviewed also findings discussed with Dr Saldana from ED: Large left pleural effusion with some accompanying atelectasis or consolidation of the left mid and lower lung. Mild atelectasis or consolidation of the right base. Blood cx 08/18 with strep pneumo Repeat blood cx 08/21/16 NTD Continue ceftriaxone IV Plan to repeat Blood cx at dialysis 08/21 Pleural fluid cx are pending Cont HAART Rx for HIV Sputum cx pending Pneumococcal and Legionella ag neg Consult ID specialist Consult pulm CT chest 08/22/16 reviewed: Moderate left pleural effusion with accompanying areas of atelectasis or consolidation. There is some minimal patchy atelectasis or consolidation at the right lung. Resume home HIV meds: Tenofovir 300 Mg PO Q7D. Emtricitabine 200 Mg Cap Q96H. Efavirenz 600 Mg PO HS. Atovaquone 1,500 Mg PO DAILY DVT ppx SCD/TEDs lovenox Code Status full code Discussed Condition With patient, nurse Emmy Day MD Aug 23, 2016 10:50
[2016-08-23] MEDS: ENOXAPARIN SODIUM 30 MG/0.3 ML SYRINGE SQ SCH (12:21)
--- NOTE | 2016-08-23 15:11 | HHI.NPPN ---
Subjective History of Present Illness 45 year old ESRD, HTN, HIV Disease Additional Remarks No acute complaints, wants to go home soon. Review of Systems Respiratory Lungs: SOB Objective Data Data 08/22/16 08/23/16 19:00 07:00 Intake Total 360 ml 1120 ml Balance 360 ml 1120 ml Intake Oral 360 ml 1120 ml # Voids 5 # Bowel Movements 4 Vital Signs Date Time Temp Pulse Resp B/P Pulse Ox O2 Delivery O2 Flow Rate FiO2 08/23/16 12:00 97.2 85 16 138/83 100 08/23/16 08:00 97.4 91 16 134/71 99 08/23/16 04:00 98.0 88 18 145/73 100 08/23/16 00:00 98.1 94 18 130/65 100 08/22/16 20:00 94 08/22/16 20:00 97.8 89 22 144/88 100 08/22/16 16:00 97.3 90 16 116/85 100 -: 08/23/16 0645 08/23/16 0645 Physical Exam General Appearance: Well Developed, Well Nourished Neck Neck Exam: Neck Supple Pulmonary Resp Exam: Decreased Bases Cardiology CV Exam: Regular, Normal Sinus Rhythm Gastrointestinal/Abdomen GI Exam: Soft, Non-Tender, Bowel Sounds Present Extremeties Extremities Exam: Trace Edema Assessment/Plan Problem List: (1) End stage renal disease Plan: HD done Wednesday, plan next HD tomorrow. Continue MWF HD. Follows with dialysis in [place] s/p thoracentesis, continue to monitor. strep Pneumoniae in blood treated ID following Repeat cultures negative (2) Pleural effusion Plan: L thoracenteses done 1 L (3) Sepsis Plan: Continue with broad-spectrum antibiotic Monitor cultures - negative to date, with initial coag neagative staph If catheter needs to be changed, may consider for over-wire catheter exchange to preserve vein sites. However repeat cultures negative, Afebrile now on antibiotics. (4) Pneumonia Plan: Strep pneumoniae Received vancomycin and ceftriaxone and vancomycin is with hemodialysis (5) HIV disease Plan: Advanced disease Problem Qualifiers (1) Sepsis: Qualified Code: A41.9 - Sepsis, due to unspecified organism Cornell Tejeda MD Aug 23, 2016 15:11
[2016-08-23] MEDS: cefTRIAXone INJ 1,000 MG in SODIUM CHLORIDE 0.9% INJ 100 ML IV SCH (18:08)
[2016-08-24] VITALS (7 sets, daily range): BP systolic 130–152; BP diastolic 72–84; PULSE 82–104; RESP 12–18; TEMP 97.7–98.4; O2SAT 92–100
[2016-08-24] MEDS: TENOFOVIR DISOPROXIL FUMARATE 300 MG TAB PO SCH (09:16)
[2016-08-24] MEDS: guaiFENesin E.R. 600 MG TAB PO SCH ×2 (09:16→21:54)
[2016-08-24] MEDS: SODIUM CHLORIDE 0.9% FLUSH 5 ML FLUSH FLUSH SCH ×2 (09:17→21:55)
[2016-08-24] MEDS: BENZONATATE 100 MG CAP PO PRN ×2 (09:23→17:02)
--- NOTE | 2016-08-24 09:50 | HHI.PR ---
Subjective Remarks Still coughing and with sob, on NC. However says she feels improved. Denies having any fevers or chills. Objective Vitals Vital Signs Date Time Temp Pulse Resp B/P Pulse Ox O2 Delivery O2 Flow Rate FiO2 08/24/16 08:00 97.7 85 12 140/72 99 08/24/16 04:00 98.4 86 18 145/84 100 08/24/16 00:00 98.2 95 18 152/81 97 08/23/16 20:45 91 08/23/16 20:00 98.0 82 16 151/85 96 08/23/16 16:00 97.3 90 16 145/86 100 08/23/16 12:00 97.2 85 16 138/83 100 I/O 08/23/16 08/23/16 08/23/16 08/24/16 08/24/16 08/24/16 07:00 15:00 23:00 07:00 15:00 23:00 Intake Total 480 ml 480 ml 360 ml 360 ml Output Total 450 ml Balance 480 ml 480 ml 360 ml -90 ml Intake Oral 480 ml 480 ml 360 ml 360 ml Output Urine Total 450 ml # Voids 3 4 # Bowel Movements 2 0 0 Result Diagram: 08/23/16 0645 08/23/16 0645 Imaging Last Impressions Chest CT 08/22/16 0000 Signed Impressions: Service Date/Time: Monday, August 22, 2016 15:10 - CONCLUSION: Moderate left pleural effusion with accompanying areas of atelectasis or consolidation. There is some minimal patchy atelectasis or consolidation at the right lung. Parminder Mccormick MD Thoracentesis Ultrasound 08/19/16 0000 Signed Impressions: Service Date/Time: Friday, August 19, 2016 16:41 - CONCLUSION: Uncomplicated ultrasound guided thoracentesis. Damon Ennis MD Chest X-Ray 08/19/16 0000 Signed Impressions: Service Date/Time: Friday, August 19, 2016 17:13 - CONCLUSION: 1. Consolidative changes and fluid persist on the left in spite of thoracentesis. 2. There is no pneumothorax evident. Kip Haque MD FACR Objective Remarks GENERAL: This is a chronically ill 45 yo AA male patient, well-nourished, well- developed patient, coughing. SKIN: No rashes, ecchymoses or lesions. Cool and dry. HEAD: Atraumatic. Normocephalic. No temporal or scalp tenderness. EYES: Pupils equal round and reactive. Extraocular motions intact. No scleral icterus. No injection or drainage. ENT: Nose without bleeding, purulent drainage or septal hematoma. Throat without erythema, tonsillar hypertrophy or exudate. Uvula midline. Airway patent. NECK: Trachea midline. No JVD or lymphadenopathy. Supple, nontender, no meningeal signs. CARDIOVASCULAR: Regular rate and rhythm without murmurs, gallops, or rubs. RESPIRATORY: Coarse breath sounds, wheezing and rhonchi throughout the posterior lung reese. GASTROINTESTINAL: Abdomen soft, non-tender, nondistended. No hepato-splenomegaly , or palpable masses. No guarding. MUSCULOSKELETAL: Extremities without clubbing, cyanosis, or edema. No joint tenderness, effusion, or edema noted. No calf tenderness. Negative Homans sign bilaterally. NEUROLOGICAL: Awake and alert. Cranial nerves II through XII intact. Motor and sensory grossly within normal limits. Five out of 5 muscle strength in all muscle groups. Normal speech. 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 Patient with sepsis, end-stage renal disease, implanted line, and HIV. Pneumonia source. Chest x-ray shows pleural effusion, consolidation. Sepsis criteria on admission leukocytosis, tachycardia. Bacteremia strep pneumo and staph coag neg. Left lung effusion. Pneumonia with strep pneumo. S/P thoracentesis 08/18/16. CT worsening effusion. might need repeat thoracentesis Respiratory failure requiring O2 supplement HIV/AIDS ESRD on HD M/W/. Continue HD, nephro following. Chronic back pain Elevated Troponin 0.09 on admission likely 2/2 decreased clearance missed HD. He denies having any chest pain . Chest x-ray reviewed also findings discussed with Dr Saldana from ED: Large left pleural effusion with some accompanying atelectasis or consolidation of the left mid and lower lung. Mild atelectasis or consolidation of the right base. Blood cx 08/18 with strep pneumo Repeat blood cx 08/21/16 NTD Continue ceftriaxone IV Plan to repeat Blood cx at dialysis 08/21 NTD Pleural fluid cx are pending Cont HAART Rx for HIV Sputum cx pending Pneumococcal and Legionella ag neg Consult ID specialist Consult pulm CT chest 08/22/16 reviewed: Moderate left pleural effusion with accompanying areas of atelectasis or consolidation. There is some minimal patchy atelectasis or consolidation at the right lung. Resume home HIV meds: Tenofovir 300 Mg PO Q7D. Emtricitabine 200 Mg Cap Q96H. Efavirenz 600 Mg PO HS. Atovaquone 1,500 Mg PO DAILY DVT ppx SCD/TEDs lovenox Code Status full code Discussed Condition With patient, nurse Emmy Day MD Aug 24, 2016 09:50
[2016-08-24] MEDS: ENOXAPARIN SODIUM 30 MG/0.3 ML SYRINGE SQ SCH (12:00)
--- NOTE | 2016-08-24 14:26 | HHI.NPPN ---
Subjective History of Present Illness 45 year old ESRD, HTN, HIV Disease Additional Remarks No acute complaints, wants to go home soon. Review of Systems Respiratory Lungs: SOB Objective Data Data 08/23/16 08/24/16 19:00 07:00 Intake Total 480 ml 720 ml Output Total 450 ml Balance 480 ml 270 ml Intake Oral 480 ml 720 ml Output Urine Total 450 ml # Voids 4 # Bowel Movements 0 Vital Signs Date Time Temp Pulse Resp B/P Pulse Ox O2 Delivery O2 Flow Rate FiO2 08/24/16 12:00 97.8 82 12 137/75 100 08/24/16 08:00 97.7 85 12 140/72 99 08/24/16 04:00 98.4 86 18 145/84 100 08/24/16 00:00 98.2 95 18 152/81 97 08/23/16 20:45 91 08/23/16 20:00 98.0 82 16 151/85 96 08/23/16 16:00 97.3 90 16 145/86 100 -: 08/23/16 0645 08/23/16 0645 Physical Exam General Appearance: Well Developed, Well Nourished Neck Neck Exam: Neck Supple Pulmonary Resp Exam: Decreased Bases Cardiology CV Exam: Regular, Normal Sinus Rhythm Gastrointestinal/Abdomen GI Exam: Soft, Non-Tender, Bowel Sounds Present Extremeties Extremities Exam: Trace Edema Assessment/Plan Problem List: (1) End stage renal disease Plan: HD seen during hemodialysis UF 2 L. Continue MWF HD. Follows with dialysis in [place] s/p thoracentesis, continue to monitor. strep Pneumoniae in blood treated ID following Repeat cultures negative (2) Pleural effusion Plan: L thoracenteses done 1 L (3) Sepsis Plan: Continue with broad-spectrum antibiotic Monitor cultures - negative to date, with initial coag neagative staph If catheter needs to be changed, may consider for over-wire catheter exchange to preserve vein sites. However repeat cultures negative, Afebrile now on antibiotics. (4) Pneumonia Plan: Strep pneumoniae Received vancomycin and ceftriaxone and vancomycin is with hemodialysis (5) HIV disease Plan: Advanced disease Problem Qualifiers (1) Sepsis: Qualified Code: A41.9 - Sepsis, due to unspecified organism Iman Benitez MD Aug 24, 2016 14:26
--- NOTE | 2016-08-24 14:57 | HHI.FF ---
Infusion Therapy Location of Infusion Therapy: Dialysis Center Patient Information Patient Weight 92.5 kg Diagnosis: (1) Sepsis (2) Pneumonia Coded Allergies: *MDRO Multi-Drug Resistant Organism (Verified Adverse Reaction, Unknown, 07/16/15) MDR-acinetobacter baumannii/haemol blood 07/2015 Administer Medication Vancomycin 1 gram IV q 48 hours w/Hemodialysis M,W,F Stop Treatment: Sep 07, 2016 Additional Information Venous access: Other Additional Instructions [x] Peripheral flush and dressing changes per protocol [x] Implanted port and central pipeline controller: * Implanted port: 10 ml Normal Saline followed by 5 ml Heparin 100 units/ml Heparin flush after each use and monthly to maintain. [] May leave port accessed during therapy. [] May leave peripheral site accessed for duration of therapy. [x] If patient has SOB or respiratory distress, check oxygen saturation. If less than 90% or clinical signs of respiratory distress, administer oxygen at 2 L/min. via nasal cannula and notify physician. [x] Anaphylaxis/Reaction orders: * Stop infusion. * Keep IV line open with saline flush. * Notify physician. * Monitor vital signs every 15 minutes until symptoms resolve. * Check Oxygen saturation; Oxygen at 2 L/min. via nasal cannula if less than 90% or clinical signs of respiratory distress. * Administer diphenhydramine (Benadryl) 25 mg IV STAT, (unless patient has received as pre-med). May repeat once, if necessary. * Solu-Cortef 250 mg IVP over 30-60 seconds, use 100 mg vials for each dissolution. * Epinephrine (1mg/1 ml) 0.3 mg subcutaneously or IVP now with any signs of respiratory distress. * Check with physician for new additional pre-med orders if patient is re- challenged or re-treated. [x] May remove PICC line when treatment complete, after confirming with Physician. [x] If the patient is admitted to the hospital, the ED, or transferred via [facility] , complete transfer form including medication reconciliation order sheet. Moo Caal MD Aug 24, 2016 14:57
[2016-08-24] MEDS: SODIUM CHLOR 0.9% 1000 ML INJ 1,000 ML IV PRN (15:18)
[2016-08-24] MEDS: VANCOMYCIN INJ 1,000 MG in SODIUM CHLOR 0.9% 250 ML INJ 250 ML IV SCH (15:18)
[2016-08-24] MEDS: EPOETIN ALFA 10,000 UNITS/ML VIAL IV PRN (15:19)
[2016-08-24] MEDS: GENTAMICIN SULFATE (DIALYSIS USE ONLY) 20 MG/2 ML VIAL IV PRN (15:19)
--- NOTE | 2016-08-24 16:17 | HHI.IDPN ---
Note Infectious Disease Note Patient feels okay. Seen at end of dialysis treatment. Comfortable and looks well. Patient is post Thoracentesis 08/19/16. breathing better. No chills. Afebrile. 08/18/16 Blood culture has strep pneumoniae and staph coag neg. 08/21/16 Repeat blood culture has no growth. This is a 45-year-old black male who has known history of AIDS and end-stage renal disease. The patient presented to emergency department with fever. The patient is reported by his girlfriend and himself to have had shortness of breath for 2 weeks and then developed cough 2 days ago and fevers also 2 days ago. PAST MEDICAL HISTORY HIV End-stage renal disease Patient on hemodialysis. Hepatitis C. Hypertension. Left upper extremity AV fistula Dialysis vascular catheter. History of buttock abscess due to staph aureus history of sepsis due to staph aureus history of bacteremia due to Acinetobacter. 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 Current Medications Medications (Trade) Dose Ordered Sig/Karl Route PRN Reason Start Time Stop Time Status Last Admin Dose Admin IV Flush (NS Flush) 2 ml UNSCH PRN FLUSH FLUSH AFTER USING IV ACCESS 08/18/16 11:00 IV Flush (NS Flush) 2 ml BID FLUSH 08/18/16 21:00 08/24/16 09:17 Acetaminophen (Tylenol) 650 mg Q4H PRN PO TEMP > 100.4 08/18/16 11:00 08/18/16 16:28 Ondansetron HCl (Zofran Inj) 4 mg Q6H PRN IVP NAUSEA OR VOMITING 08/18/16 11:00 Prochlorperazine (Compazine Supp) 25 mg Q12H PRN TN NAUSEA OR VOMITING 08/18/16 11:00 Bisacodyl (Dulcolax Supp) 10 mg DAILY PRN TN CONSTIPATION 08/18/16 11:00 Magnesium Hydroxide (Milk Of Magnesia Liq) 30 ml Q12H PRN PO CONSTIPATION 08/18/16 11:00 Sennosides 17.2 mg 17.2 mg Q12H PRN PO CONSTIPATION 08/18/16 11:00 Sodium Chloride (NS 1000 ml Inj) 1,000 ml @ 0 mls/hr Q0M PRN IV For Prime & Rinse Back 08/18/16 18:24 08/19/16 08:25 Heparin Sodium (Porcine) 8000 units 8,000 units UNSCH PRN IVF WITH DIALYSIS 08/18/16 18:30 Sodium Chloride 1,000 ml @ 200 mls/hr Q5H PRN IV WITH DIALYSIS 08/18/16 18:24 08/24/16 15:18 Sodium Chloride (NS 1000 ml Inj) 1,000 ml @ 0 mls/hr Q0M PRN IV WITH DIALYSIS 08/18/16 18:24 Mannitol (Mannitol Inj) 12.5 gm UNSCH PRN IV WITH DIALYSIS 08/18/16 18:30 Albumin Human (Albumin 25% Inj) 25 gm UNSCH PRN IV WITH DIALYSIS 08/18/16 18:30 IV Flush (NS Flush) 5 ml UNSCH PRN IVF WITH DIALYSIS 08/18/16 18:30 08/19/16 08:27 Heparin Sodium (Porcine) (Heparin Inj) UNSCH PRN .XX WITH DIALYSIS 08/18/16 18:30 08/21/16 13:00 Gentamicin Sulfate (Gentamicin (Dialysis) Inj) 20 mg UNSCH PRN IV WITH DIALYSIS 08/18/16 18:30 08/24/16 15:19 Ondansetron HCl (Zofran Inj) 4 mg UNSCH PRN IV WITH DIALYSIS 08/18/16 18:30 Acetaminophen (Tylenol) 650 mg UNSCH PRN PO for headach, pain, temp > 101F 08/18/16 18:30 08/19/16 14:49 Diphenhydramine HCl (Benadryl) 25 mg UNSCH PRN PO for hives/itching/anaphylaxis 08/18/16 18:30 Nitroglycerin (Nitrostat Sl) 0.4 mg UNSCH PRN SL CHEST PAIN 08/18/16 18:30 Clonidine (Catapres) 0.1 mg UNSCH PRN PO for BP > 180/100 X 2 readings 08/18/16 18:30 Epoetin Mati (Epogen Inj) 10,000 units UNSCH PRN IV WITH DIALYSIS 08/18/16 18:30 08/24/16 15:19 Gelatin (Gelfoam 12 Mm/7 Mm Top) 1 foam UNSCH PRN TOP SEE LABEL COMMENTS 08/18/16 18:30 Enoxaparin Sodium (Lovenox Inj) 30 mg Q24H SQ 08/19/16 12:00 08/23/16 12:21 Dextrose (D50w (Vial) Inj) 25 ml UNSCH PRN IV PUSH HYPOGLYCEMIA-SEE COMMENTS 08/19/16 12:00 Glucagon (Glucagon Inj) 1 mg UNSCH PRN OTHER HYPOGLYCEMIA-SEE COMMENTS 08/19/16 12:00 Guaifenesin 600 mg 600 mg BID PO 08/19/16 21:00 08/24/16 09:16 Ceftriaxone Sodium/Sodium Chloride (Rocephin Inj/NS Inj) 100 ml @ 200 mls/hr Q24H IV 08/19/16 18:45 08/23/16 18:08 Benzonatate (Tessalon) 100 mg TID PRN PO cough 08/21/16 09:00 08/24/16 09:23 Efavirenz (Sustiva) 600 mg HS PO 08/21/16 21:00 08/23/16 21:31 Emtricitabine (Emtriva) 200 mg Q4D PO 08/21/16 11:00 08/21/16 14:31 Tenofovir Disoproxil Fumarate (Viread) 300 mg DAILY PO 08/21/16 12:45 08/24/16 09:16 SOCIAL HISTORY No tobacco, no alcohol. No illicit drugs. FAMILY HISTORY Noncontributory. OBJECTIVE: Vital Signs Date Time Temp Pulse Resp B/P Pulse Ox O2 Delivery O2 Flow Rate FiO2 08/24/16 12:00 97.8 82 12 137/75 100 08/24/16 08:00 97.7 85 12 140/72 99 08/24/16 04:00 98.4 86 18 145/84 100 08/24/16 00:00 98.2 95 18 152/81 97 08/23/16 20:45 91 08/23/16 20:00 98.0 82 16 151/85 96 08/23/16 08/23/16 08/24/16 15:00 23:00 07:00 Intake Total 480 ml 360 ml 360 ml Output Total 450 ml Balance 480 ml 360 ml -90 ml Intake Oral 480 ml 360 ml 360 ml Output Urine Total 450 ml # Voids 4 # Bowel Movements 0 0 Laboratory Tests Test 08/23/16 06:45 White Blood Count 9.3 TH/MM3 Red Blood Count 2.47 MIL/MM3 Hemoglobin 7.8 GM/DL Hematocrit 24.5 % Mean Corpuscular Volume 99.0 FL Mean Corpuscular Hemoglobin 31.7 PG Mean Corpuscular Hemoglobin 32.0 % Concent Red Cell Distribution Width 15.9 % Platelet Count 209 TH/MM3 Mean Platelet Volume 8.5 FL Neutrophils (%) (Auto) 49.6 % Lymphocytes (%) (Auto) 28.2 % Monocytes (%) (Auto) 16.1 % Eosinophils (%) (Auto) 5.7 % Basophils (%) (Auto) 0.4 % Neutrophils # (Auto) 4.6 TH/MM3 Lymphocytes # (Auto) 2.6 TH/MM3 Monocytes # (Auto) 1.5 TH/MM3 Eosinophils # (Auto) 0.5 TH/MM3 Basophils # (Auto) 0.0 TH/MM3 CBC Comment AUTO DIFF Differential Comment AUTO DIFF CONFIRMED Laboratory Tests Test 08/23/16 06:45 Sodium Level 136 MEQ/L Potassium Level 5.0 MEQ/L Chloride Level 100 MEQ/L Carbon Dioxide Level 29.3 MEQ/L Anion Gap 7 MEQ/L Blood Urea Nitrogen 50 MG/DL Creatinine 9.65 MG/DL Estimat Glomerular Filtration 7 ML/MIN Rate Random Glucose 67 MG/DL Calcium Level 8.4 MG/DL Microbiology Date/Time Procedure Status Source Growth 08/18/16 08:45 Influenza Types A,B Antigen (KATHIE) Received Nasal Washing Pending 08/18/16 08:50 Aerobic Blood Culture - Final Resulted Blood Peripheral Streptococcus Pneumoniae 08/18/16 08:50 Anaerobic Blood Culture - Preliminary Resulted Streptococcus Pneumoniae 08/18/16 08:55 Aerobic Blood Culture - Preliminary Resulted Blood Peripheral NO GROWTH IN 2 DAYS 08/18/16 08:55 Anaerobic Blood Culture - Preliminary Resulted Streptococcus Pneumoniae 08/18/16 08:58 Influenza Types A,B Antigen (KATHIE) - Final Complete Nasal Washing NEGATIVE FOR FLU A AND B ANTIGEN.... 08/19/16 17:00 Gram Stain - Final Resulted Fluid Pleural Fluid 08/19/16 17:00 Body Fluid Culture - Preliminary Resulted Fluid Pleural Fluid NO GROWTH IN 24 HOURS. 08/19/16 17:00 Fungal Smear - Final Resulted Fluid Pleural Fluid NO FUNGAL ELEMENTS SEEN. 08/19/16 17:00 Fungal Culture Resulted Fluid Pleural Fluid Pending PHYSICAL EXAMINATION IN GENERAL: No acute distress. HEAD, EYES, EARS, NOSE, AND THROAT: Head is atraumatic. Extraocular movements grossly intact, pupils reactive to light. No in no icterus. No conjunctival erythema. Nose no swelling. No bleeding. Oropharynx no visible lesions. Mucosa is moist. NECK: Supple without adenopathy. LUNGS: Better air movement. decreased breath sounds at at the left lung reese and also rhonchi at the left base. HEART: Nl S1 S2. No audible murmurs or rubs or gallops. ABDOMEN: Bowel sounds present, soft, nontender. EXTREMITIES: Warm, edema at the feet. No clubbing, cyanosis. NEUROLOGIC: Nonfocal. SKIN: No rash PSYCHIATRIC: The patient calm and cooperative. IMPRESSION 1. Sepsis. Strep pneumoniae. 2. Left lung effusion / pneumonia. Effusion drained and patient's breathing has improved. 3. AIDS 4. End-stage renal disease. Stable. RECOMMENDATIONS Arrange for continued IV antibiotic treatment with IV Vancomycin at outpatient dialysis facility in [place] with dialysis treatments until 09/07/16. Continue HAART treatment for the HIV. Patient's girlfriend in room. He wishes not to reveal his HIV status to anyone including family. Moo Caal MD Aug 24, 2016 16:17
[2016-08-25] VITALS (7 sets, daily range): BP systolic 144–152; BP diastolic 82–95; PULSE 74–104; RESP 18; TEMP 97.8–98.5; O2SAT 92–97
[2016-08-25 07:39] LABS: AUTOMATED NEUTROPHIL # 3.9 TH/MM3 (1.8-7.7); BASOPHIL % 0.5 % (0.0-2.0); EOSINOPHIL # 0.4 TH/MM3 (0-0.4); HEMATOCRIT 23.1 % (39.0-51.0); LYMPH % 39.6 % (9.0-44.0); LYMPHOCYTE # 3.9 TH/MM3 (1.0-4.8); MEAN CELL VOLUME 96.9 FL (80.0-100.0); MEAN CORPUSCULAR HEMOGLOBIN 31.6 PG (27.0-34.0); MEAN CORPUSCULAR HGB CONC 32.6 % (32.0-36.0); MONO % 16.3 % (0.0-8.0); NEUT % 39.6 % (16.0-70.0); PLATELET COUNT 269 TH/MM3 (150-450); RED BLOOD COUNT 2.39 MIL/MM3 (4.50-5.90); RED CELL DISTRIBUTION WIDTH 15.7 % (11.6-17.2); WHITE BLOOD COUNT 9.8 TH/MM3 (4.0-11.0)
[2016-08-25 07:45] LABS: HEMO FLAGS AUTO DIFF
[2016-08-25 08:05] LABS: BICARBONATE 31.1 MEQ/L (21.0-32.0); POTASSIUM 4.3 MEQ/L (3.5-5.1)
[2016-08-25 09:19] LABS: BANDS 1 % (0-6); EOSINOPHILS 4 % (0-4); METAMYELOCYTES 3 % (0-1); MYELOCYTES 1 % (0-0); NEUTROPHIL # MANUAL DIFF 4.9 TH/MM3 (1.8-7.7); PLATELET ESTIMATE SMEAR NORMAL (NORMAL); PLATELET MORPHOLOGY NORMAL (NORMAL); POLYS (SEG NEUTROPHILS) 45 % (16-70); SCAN/DIFF FINAL DIFF MANUAL; WBC DIFF SAMPLE 100
[2016-08-25] MEDS: TENOFOVIR DISOPROXIL FUMARATE 300 MG TAB PO SCH (09:54)
[2016-08-25] MEDS: SODIUM CHLORIDE 0.9% FLUSH 5 ML FLUSH FLUSH SCH (09:55)
[2016-08-25] MEDS: guaiFENesin E.R. 600 MG TAB PO SCH (09:55)
[2016-08-25] MEDS: BENZONATATE 100 MG CAP PO PRN (10:00)
[2016-08-25] MEDS: EMTRICITABINE 200 MG CAP PO SCH (10:00)
--- NOTE | 2016-08-25 10:58 | HHI.DS ---
Discharge Summary Admission Date Aug 18, 2016 at 11:04 Discharge Date: Aug 25, 2016 Admitting Diagnosis sepsis (1) Pleural effusion ICD Code: J90 Diagnosis: Principal (2) Sepsis ICD Code: A41.9 Diagnosis: Principal (3) Pneumococcal pneumonia ICD Code: J13 Diagnosis: Principal (4) HIV-1 infection ICD Code: Z21 Diagnosis: Secondary (5) End stage renal disease ICD Code: N18.6 Diagnosis: Secondary (6) Acidosis ICD Code: E87.2 Diagnosis: Secondary (7) Anemia ICD Code: D64.9 Diagnosis: Secondary (8) Thrombocytopenia ICD Code: D69.6 Diagnosis: Secondary Procedures thoracentesis Brief History - From Admission 45 yo male with PMH of HIV/AIDS/ HIV nephropathy, ESRD on HD M/W/F here for evaluation of cough, fevers and tiredness. Patient says she started coughing 2 weeks ago, worsening for the past 3-4 days, and he has associated intermittent fevers starting yesterday. Says he missed HD because he felt too week. He also has associated sob for the past 2 days. Says when he leans on bed he has more sob and cough. No cp, n/v/d/c. Says he goes back and forth [place] /[place] and his nephrology doctor is in [place]. He treated himself with OTC meds but did not help. Feels very weak. The patient is in the room leaning on the table, on the pillow and says this position is making him cough less. He has a right chest port , as well as a left AV fistula that apparently still maturing. CBC/BMP: 08/25/16 0629 08/25/16 0629 Significant Findings Laboratory Tests Test 08/23/16 08/25/16 06:45 06:29 Red Blood Count 2.47 MIL/MM3 2.39 MIL/MM3 (4.50-5.90) (4.50-5.90) Hemoglobin 7.8 GM/DL 7.6 GM/DL (13.0-17.0) (13.0-17.0) Hematocrit 24.5 % 23.1 % (39.0-51.0) (39.0-51.0) Monocytes (%) (Auto) 16.1 % 16.3 % (0.0-8.0) (0.0-8.0) Eosinophils (%) (Auto) 5.7 % (0.0-4.0) Monocytes # (Auto) 1.5 TH/MM3 1.6 TH/MM3 (0-0.9) (0-0.9) Eosinophils # (Auto) 0.5 TH/MM3 (0-0.4) Blood Urea Nitrogen 50 MG/DL (7-18) 44 MG/DL (7-18) Creatinine 9.65 MG/DL 7.77 MG/DL (0.60-1.30) (0.60-1.30) Estimat Glomerular Filtration 7 ML/MIN (>89) 9 ML/MIN (>89) Rate Random Glucose 67 MG/DL (74-106) Calcium Level 8.4 MG/DL (8.5-10.1) Monocytes % 10 % (0-8) Metamyelocytes 3 % (0-1) Myelocytes 1 % (0-0) Imaging Last Impressions Chest CT 08/22/16 0000 Signed Impressions: Service Date/Time: Monday, August 22, 2016 15:10 - CONCLUSION: Moderate left pleural effusion with accompanying areas of atelectasis or consolidation. There is some minimal patchy atelectasis or consolidation at the right lung. Parminder Mccormick MD Thoracentesis Ultrasound 08/19/16 0000 Signed Impressions: Service Date/Time: Friday, August 19, 2016 16:41 - CONCLUSION: Uncomplicated ultrasound guided thoracentesis. Damon Ennis MD Chest X-Ray 08/19/16 0000 Signed Impressions: Service Date/Time: Friday, August 19, 2016 17:13 - CONCLUSION: 1. Consolidative changes and fluid persist on the left in spite of thoracentesis. 2. There is no pneumothorax evident. Kip Haque MD FACR PE at Discharge GENERAL: This is a chronically ill 45 yo AA male patient, well-nourished, well- developed patient, coughing. SKIN: No rashes, ecchymoses or lesions. Cool and dry. HEAD: Atraumatic. Normocephalic. No temporal or scalp tenderness. EYES: Pupils equal round and reactive. Extraocular motions intact. No scleral icterus. No injection or drainage. ENT: Nose without bleeding, purulent drainage or septal hematoma. Throat without erythema, tonsillar hypertrophy or exudate. Uvula midline. Airway patent. NECK: Trachea midline. No JVD or lymphadenopathy. Supple, nontender, no meningeal signs. CARDIOVASCULAR: Regular rate and rhythm without murmurs, gallops, or rubs. RESPIRATORY: Coarse breath sounds, wheezing and rhonchi throughout the posterior lung reese. GASTROINTESTINAL: Abdomen soft, non-tender, nondistended. No hepato-splenomegaly , or palpable masses. No guarding. MUSCULOSKELETAL: Extremities without clubbing, cyanosis, or edema. No joint tenderness, effusion, or edema noted. No calf tenderness. Negative Homans sign bilaterally. NEUROLOGICAL: Awake and alert. Cranial nerves II through XII intact. Motor and sensory grossly within normal limits. Five out of 5 muscle strength in all muscle groups. Normal speech. Pt update on day of discharge Feels much better. Still with cough nonproductive. wants to go home. Patient to have IV abx at dialisis. CM is following for DC plan Hospital Course 45 yo male with PMH/ HIV nephropathy, ESRD on HD M/W/ here for evaluation of cough, fevers and tiredness. 1. Sepsis. Strep pneumoniae. 2. Left lung effusion / pneumonia. Effusion drained and patient's breathing has improved. 3. AIDS 4. End-stage renal disease. Patient with sepsis, end-stage renal disease, implanted line, and HIV. Pneumonia source. Chest x-ray shows pleural effusion, consolidation. Sepsis criteria on admission leukocytosis, tachycardia. Bacteremia strep pneumo and staph coag neg. Left lung effusion. Pneumonia with strep pneumo. S/P thoracentesis 08/18/16. CT worsening effusion. might need repeat thoracentesis Respiratory failure requiring O2 supplement HIV/AIDS ESRD on HD M/W/. Continue HD, nephro following. Chronic back pain Elevated Troponin 0.09 on admission likely 2/2 decreased clearance missed HD. He denies having any chest pain . Chest x-ray reviewed also findings discussed with Dr Saldana from ED: Large left pleural effusion with some accompanying atelectasis or consolidation of the left mid and lower lung. Mild atelectasis or consolidation of the right base. Blood cx 08/18 with strep pneumo Repeat blood cx 08/21/16 NTD On IV vanco Pleural fluid cx are neg Cont HAART Rx for HIV Arrange for continued IV antibiotic treatment with IV Vancomycin at outpatient dialysis facility in [place] with dialysis treatments until 09/07/[address] Chris ID Pneumococcal and Legionella ag neg Consult ID specialist Consult pulm CT chest 08/22/16 reviewed: Moderate left pleural effusion with accompanying areas of atelectasis or consolidation. There is some minimal patchy atelectasis or consolidation at the right lung. Resume home HIV meds: Tenofovir 300 Mg PO Q7D. Emtricitabine 200 Mg Cap Q96H. Efavirenz 600 Mg PO HS. Atovaquone 1,500 Mg PO DAILY Patient improved, cleared for DC. Patient to follow up as OP with PCP and consultants. Pt Condition on Discharge: Fair Discharge Disposition: Disch w/ Home Health Serv Discharge Time: > 30 minutes Discharge Instructions DIET: Follow Instructions for: Dialysis Diet Activities you can perform: Regular-No Restrictions Follow up Referrals: Nephrology - 2-3 Days PCP Follow-up - 2-3 Days Pulmonology - 1 Week New Medications: Benzonatate (Tessalon Perles) 100 Mg Cap 100 MG PO TID PRN cough #15 CAP Continued Medications: Efavirenz (Sustiva) 600 Mg Tab 600 MG PO HS Mgmt Viral Infection #30 Ref 0 TAB [id number] Mg (Emtriva) 200 Mg Cap 200 MG PO Q4D Mgmt Viral Infection #8 Ref 0 CAP Tenofovir disoproxil fumarate (Viread) 300 Mg Tab 300 MG PO Q7DAYS Mgmt Viral Infection #8 Ref 0 TAB ([Bp Med]) Unknown Dose ([Phosphate Binder]) Unknown Dose Emmy Day MD Aug 25, 2016 10:58
[2016-08-25] MEDS ORDERED: BENZ100 PO (11:02)
--- NOTE | 2016-08-25 11:04 | HHI.FF ---
Face to Face Verification Diagnosis: (1) End stage renal disease (2) Acidosis (3) Anemia (4) Coagulopathy (5) Leukocytosis (6) Pleural effusion (7) Thrombocytopenia (8) Sepsis Physical Therapy Order: Evaluate and Treat I have seen patient Jimmy Webb [place] on 08/25/16. My clinical findings support the need for the requested home health care services because: Ltd mobility - disease progression Patient has SOB Deconditioned w/ increased weakness I certify that my clinical findings support that this patient is homebound because: Post-op weakness Emmy Day MD Aug 25, 2016 11:04
--- NOTE | 2016-08-25 11:09 | HHI.NPPN ---
Subjective History of Present Illness 45 year old ESRD, HTN, HIV Disease Additional Remarks No acute complaints, wants to go home soon. Review of Systems Respiratory Lungs: SOB Objective Data Data 08/24/16 08/25/16 19:00 07:00 Intake Total 600 ml 480 ml Output Total 2000 ml Balance -1400 ml 480 ml Intake Oral 600 ml 480 ml Hemodialysis 2000 ml # Voids 2 4 # Bowel Movements 1 0 Vital Signs Date Time Temp Pulse Resp B/P Pulse Ox O2 Delivery O2 Flow Rate FiO2 08/25/16 10:43 94 21 08/25/16 08:15 92 08/25/16 08:00 98.1 74 18 144/84 97 08/25/16 04:00 98.2 98 18 148/95 92 08/25/16 00:53 92 08/25/16 00:00 97.8 104 18 152/82 92 08/24/16 22:02 104 08/24/16 20:00 98.1 97 18 130/73 92 08/24/16 16:00 98.2 91 12 146/77 98 08/24/16 12:00 97.8 82 12 137/75 100 -: 08/25/16 0629 08/25/16 0629 Physical Exam General Appearance: Well Developed, Well Nourished Neck Neck Exam: Neck Supple Pulmonary Resp Exam: Decreased Bases Cardiology CV Exam: Regular, Normal Sinus Rhythm Gastrointestinal/Abdomen GI Exam: Soft, Non-Tender, Bowel Sounds Present Extremeties Extremities Exam: Trace Edema Assessment/Plan Problem List: (1) End stage renal disease Plan: HD done yesterday UF 2 L. Continue MWF HD. Follows with dialysis in [place] s/p thoracentesis, continue to monitor. strep Pneumoniae in blood treated ID following Repeat cultures negative (2) Pleural effusion Plan: L thoracenteses done 1 L (3) Sepsis Plan: Continue with broad-spectrum antibiotic Monitor cultures - negative to date, with initial coag neagative staph If catheter needs to be changed, may consider for over-wire catheter exchange to preserve vein sites. However repeat cultures negative, Afebrile now on antibiotics. (4) Pneumonia Plan: Strep pneumoniae Received vancomycin and ceftriaxone and vancomycin is with hemodialysis (5) HIV disease Plan: Advanced disease Problem Qualifiers (1) Sepsis: Qualified Code: A41.9 - Sepsis, due to unspecified organism Iman Benitez MD Aug 25, 2016 11:08
--- NOTE | 2016-08-25 12:26 | HHI.FF ---
Face to Face Verification Diagnosis: (1) HIV-1 infection (2) Pneumococcal pneumonia (3) HIV disease (4) Sepsis (5) Thrombocytopenia (6) Pleural effusion (7) Anemia (8) End stage renal disease Physical Therapy Order: Evaluate and Treat Home Health Nursing Order: Medical education Signs/symptoms of disease process Medication education-adverse effect Nursing assessment with vital signs I have seen patient Jimmy Blair on 08/25/16. My clinical findings support the need for the requested home health care services because: Ltd mobility - disease progression Patient has SOB Deconditioned w/ increased weakness I certify that my clinical findings support that this patient is homebound because: Post-op weakness Impaired cognitive ability/safety Emmy Day MD Aug 25, 2016 12:26
== END 2016-08-25 12:35 | disposition home health service (06) | DRG 974 ==
LOC: NEPE 07:53 → NEDA 11:04 → N04A 14:24 → N04B 16:59 → N04A 17:00
PROVIDERS: ADMIT Hospitalist; ATTEND Hospitalist
PROC: 5A1D60Z (ICD-10-PCS; principal; 2016-08-19)
PROC: 0W9B3ZX Drainage of Left Pleural Cavity, Percutaneous Approach, Diagnostic (ICD-10-PCS; 2016-08-20)
DX: B20 Human immunodeficiency virus [HIV] disease (principal); A41.9 Sepsis, unspecified organism; N18.6 End stage renal disease; J96.90 Respiratory failure, unspecified, unspecified whether with hypoxia or hypercapnia; J90 Pleural effusion, not elsewhere classified; N25.81 Secondary hyperparathyroidism of renal origin; I12.0 Hypertensive chronic kidney disease with stage 5 chronic kidney disease or end stage renal disease; J13 Pneumonia due to Streptococcus pneumoniae; E87.2 Acidosis; J98.11 Atelectasis; Z99.2 Dependence on renal dialysis; B19.20 Unspecified viral hepatitis C without hepatic coma; N29 Other disorders of kidney and ureter in diseases classified elsewhere; J45.909 Unspecified asthma, uncomplicated; Z86.14 Personal history of Methicillin resistant Staphylococcus aureus infection; Z86.19 Personal history of other infectious and parasitic diseases; G89.29 Other chronic pain; R74.8 Abnormal levels of other serum enzymes; M54.9 Dorsalgia, unspecified; D64.9 Anemia, unspecified
CPT/HCPCS: 32555; 71010; 71250; 80048; 80053; 80202; 82150; 82945; 82948; 83605; 83615; 83690; 83735; 84157; 84484; 85007; 85025; 85027; 85610; 85730; 86403; 87040; 87070; 87102; 87186; 87205; 87206; 87804; 88112; 88305; 89051; 90935; 93005; 94620; 94640; 94664; 96365; 96367; 96375; C1729; J0692; J0696; J1580; J1644; J1650; J3370; J7030; J7040; J7050; J7613; Q4081

== ENCOUNTER 2016-10-15 14:26 | Inpatient (IN) | payer MEDICARE, MEDICAID ==
[2016-10-15] VITALS (7 sets, daily range): BP systolic 157–192; BP diastolic 86–115; PULSE 103–120; RESP 18–20; TEMP 98–98.6; O2SAT 91–95
[~2016-10-15] VITALS: Ht 177.8 cm; Wt 88.7 kg
[~2016-10-15 14:26] MED LIST changes: -ATOV750UDC PO; +BENZ100 PO; +BP MED; -EFAV200 PO; -EMTR200 PO; -FERR324T4 PO; -LACT PO; -LORTA5 PO; +PHOSPHATE BINDER; -SENN187 PO; +SUST600T PO; -TENO300 PO; +VIRE300T2 PO; -Z.0.NO CURRENT MEDS; +[UNRECOGNIZED DRUG - CODE] PO
--- NOTE | 2016-10-15 14:49 | PD ---
HPI Chief Complaint: Respiratory Symptoms Time Seen by Provider: 14:49 Travel History International Travel<30 days: No Contact w/Intl Traveler<30days: No Traveled to known affect area: No History of Present Illness HPI 45-year-old Afro-[place] male presents to the emergency Department with worsening asthma symptoms for the past 4 days. Patient states with the change of the weather and the cold air his symptoms got much worse than normal. Patient has been out of his normal inhalers for months. Patient got some inhalers on the street including Advair and Ventolin, Which are both out at this time. Patient is having increased cough with clear sputum, chest tightness , and wheezing. Patient denies fever, chills, abdominal pain, or other symptoms. Patient is able to speak in short sentences. Patient does not have a nebulizer at home. Patient is a history of MRSA in the past. Patient has a history of kidney disease and HIV. Patient has no known drug allergies. PFSH Past Medical History Asthma: Yes Cancer: No Cardiovascular Problems: No Endocrine: No Gastrointestinal Disorders: No Hypertension: Yes Immune Disorder: No Implanted Vascular Access Dvce: No Musculoskeletal: No Neurologic: No Psychiatric: No Reproductive: No Respiratory: Yes (ASTHMA) Renal Failure: Yes (ACUTE RENAL FAILURE) Past Surgical History Other Surgery: No Social History Alcohol Use: No Tobacco Use: No Substance Use: No Allergies-Medications (Allergen,Severity, Reaction): Coded Allergies: *MDRO Multi-Drug Resistant Organism (Verified Adverse Reaction, Unknown, ) MDR-acinetobacter baumannii/haemol blood 07/2015 Reported Meds & Prescriptions Reported Meds & Active Scripts Active Tessalon Perles (Benzonatate) 100 Mg Cap 100 Mg PO TID PRN Reported [Phosphate Binder] Unknown Dose [Bp Med] Unknown Dose Viread (Tenofovir Disoproxil Fumarate) 300 Mg Tab 300 Mg PO Q7DAYS Emtriva (Emtricitabine) 200 Mg Cap 200 Mg PO Q4D Sustiva (Efavirenz) 600 Mg Tab 600 Mg PO HS Review of Systems Except as stated in HPI: all other systems reviewed are Neg General / Constitutional: No: Fever, Chills Eyes: No: Visual changes HENT: No: Headaches Cardiovascular: No: Chest Pain or Discomfort Respiratory: Positive: Cough, Shortness of Breath, Wheezing, No: Sneezing, Orthopnea, Hemoptysis, Night Sweats, Pleuritic Pain Gastrointestinal: No: Abdominal Pain Genitourinary: No: Dysuria Musculoskeletal: No: Pain Skin: No Rash Neurologic: No: Weakness Psychiatric: No: Depression Endocrine: No: Polydipsia Hematologic/Lymphatic: No: Easy Bruising Physical Exam Narrative GENERAL: Patient appears in mild respiratory distress. SKIN: Warm and dry. Normal color. Normal turgor. No diaphoresis. HEAD: Atraumatic. Normocephalic. EYES: Pupils equal and round. No scleral icterus. No injection or drainage. ENT: No nasal bleeding or discharge. Mucous membranes pink and moist. Pharynx is clear. TMs are clear bilaterally. NECK: Trachea midline. Neck is supple and nontender. CARDIOVASCULAR: Tachycardic rate and normal rhythm. RESPIRATORY: Mild to moderate accessory muscle use. Diffuse wheezes and rales throughout to auscultation. Breath sounds equal bilaterally. GASTROINTESTINAL: Abdomen soft, non-tender, nondistended. Hepatic and splenic margins not palpable. MUSCULOSKELETAL: Extremities without clubbing, cyanosis, or edema. No obvious deformities. NEUROLOGICAL: Awake and alert. No obvious cranial nerve deficits. Motor grossly within normal limits. Five out of 5 muscle strength in the arms and legs. Normal speech. PSYCHIATRIC: Appropriate mood and affect; insight and judgment normal. Data Data Last Documented VS Vital Signs Date Time Temp Pulse Resp B/P Pulse Ox O2 Delivery O2 Flow Rate FiO2 10/15/16 16:13 120 18 157/86 95 Room Air 10/15/16 14:28 98.0 Orders Electrocardiogram (10/15/16 14:52) Complete Blood Count With Diff (10/15/16 14:52) Comprehensive Metabolic Panel (10/15/16 14:52) Chest, Single Ap (10/15/16 14:52) Ecg Monitoring (10/15/16 14:52) Iv Access Insert/Monitor (10/15/16 14:52) Oximetry (10/15/16 14:52) Oxygen Administration (10/15/16 14:52) Methylprednisolone So Succ Inj (Solumedr (10/15/16 15:00) Albuterol-Ipratropium Neb (Duoneb Neb) (10/15/16 15:00) Sodium Chloride 0.9% Flush (Ns Flush) (10/15/16 15:00) Azithromycin Inj (Zithromax Inj) (10/15/16 15:00) Benzonatate (Tessalon) (10/15/16 16:45) Efavirenz (Sustiva) (10/15/16 21:00) Emtricitabine (Emtriva) (10/15/16 16:45) Tenofovir (Viread) (10/16/16 09:00) Labs Laboratory Tests Test 10/15/16 15:00 White Blood Count 6.2 TH/MM3 Red Blood Count 3.69 MIL/MM3 Hemoglobin 11.0 GM/DL Hematocrit 35.6 % Mean Corpuscular Volume 96.4 FL Mean Corpuscular Hemoglobin 29.8 PG Mean Corpuscular Hemoglobin 30.9 % Concent Red Cell Distribution Width 17.0 % Platelet Count 162 TH/MM3 Mean Platelet Volume 7.9 FL Neutrophils (%) (Auto) 47.5 % Lymphocytes (%) (Auto) 34.9 % Monocytes (%) (Auto) 13.6 % Eosinophils (%) (Auto) 3.5 % Basophils (%) (Auto) 0.5 % Neutrophils # (Auto) 2.9 TH/MM3 Lymphocytes # (Auto) 2.2 TH/MM3 Monocytes # (Auto) 0.8 TH/MM3 Eosinophils # (Auto) 0.2 TH/MM3 Basophils # (Auto) 0.0 TH/MM3 CBC Comment DIFF FINAL Differential Comment Sodium Level 135 MEQ/L Potassium Level 4.2 MEQ/L Chloride Level 102 MEQ/L Carbon Dioxide Level 25.9 MEQ/L Anion Gap 7 MEQ/L Blood Urea Nitrogen 29 MG/DL Creatinine 7.18 MG/DL Estimat Glomerular Filtration 10 ML/MIN Rate Random Glucose 85 MG/DL Calcium Level 8.7 MG/DL Total Bilirubin 0.5 MG/DL Aspartate Amino Transf 21 U/L (AST/SGOT) Alanine Aminotransferase 15 U/L (ALT/SGPT) Alkaline Phosphatase 144 U/L Total Protein 11.4 GM/DL Albumin 2.8 GM/DL [facility] Medical Decision Making Medical Screen Exam Complete: Yes Emergency Medical Condition: Yes Differential Diagnosis Respiratory distress. Asthma with acute exacerbation. Wheezing. Cough. Narrative Course Patient appears in mild respiratory distress. Labs ordered include a CBC, CMP. EKG and chest x-ray were ordered. IV access is obtained patient is given 125 mg Solu-Medrol IV. DuoNeb 3, one every every 15 minutes is ordered. 1545 hrs. patient is reassessed after his DuoNeb and feels that he is improved. Patient still has a cough with wheezes and rales present in all lung reese, but improved air movement is noted. Chest x-ray shows recurrent/chronic pulmonary effusion in the left. Similar to his presentation in August. Findings reviewed with Dr. Obrien. CBC show no significant leukocytosis and mild anemia. CMP shows elevated BUN/creatinine consistent with his renal disease and his need for dialysis tomorrow. 1600 hrs. call was placed to the hospitalist for admission due to the patient's respiratory issues, tachycardia, and hypoxemia, with presence of pleural effusion. [address] patient discussed with Dr[address] Valencia who agreed the patient warranted hospitalization, and accepted the patient for admission. Diagnosis Primary Impression: Pleural effusion Additional Impressions: Asthma exacerbation HIV-1 infection End stage renal disease Admitting Information Admitting Physician Requests: Admit Condition: Stable Hernando Laureano Oct 15, 2016 14:49
[2016-10-15] MEDS ORDERED: SODIUM CHLORIDE 0.9% FLUSH 5 ML FLUSH IVF PRN (15:00)
[2016-10-15] MEDS ORDERED: AZITHROMYCIN INJ 500 MG in SODIUM CHLOR 0.9% 250 ML INJ 250 ML IV ONE (15:00)
[2016-10-15] MEDS ORDERED: methylPREDNISolone SOD SUCC 125 MG/2 ML VIAL IVP ONE (15:00)
[2016-10-15] MEDS: RESP: ALBUTEROL 2.5 MG/IPRATROPIUM 0.5 MG NEB (SCH) INH (15:00)
[2016-10-15 15:45] LABS: AUTOMATED NEUTROPHIL # 2.9 TH/MM3 (1.8-7.7); BASOPHIL % 0.5 % (0.0-2.0); EOSINOPHIL # 0.2 TH/MM3 (0-0.4); EOSINOPHIL % 3.5 % (0.0-4.0); HEMATOCRIT 35.6 % (39.0-51.0); HEMO FLAGS DIFF FINAL; LYMPH % 34.9 % (9.0-44.0); LYMPHOCYTE # 2.2 TH/MM3 (1.0-4.8); MEAN CELL VOLUME 96.4 FL (80.0-100.0); MEAN CORPUSCULAR HEMOGLOBIN 29.8 PG (27.0-34.0); MEAN CORPUSCULAR HGB CONC 30.9 % (32.0-36.0); MONO % 13.6 % (0.0-8.0); NEUT % 47.5 % (16.0-70.0); PLATELET COUNT 162 TH/MM3 (150-450); RED BLOOD COUNT 3.69 MIL/MM3 (4.50-5.90); WHITE BLOOD COUNT 6.2 TH/MM3 (4.0-11.0)
--- NOTE | 2016-10-15 15:47 | RADRPT ---
EXAM DATE/TIME: 10/15/2016 15:18 [facility] COMPARISON: CHEST SINGLE AP, August 18, 2016, 8:45. INDICATIONS : Patient has been short of breath since Wednesday. MEDICAL HISTORY : Asthma. SURGICAL HISTORY : Dialysis cathater. ENCOUNTER: Initial ACUITY: 4 - 6 days PAIN SCORE: 0/10 LOCATION: Bilateral chest FINDINGS: There is increased density at the left base with silhouetting the left heart border and the left louis diaphragm. The right lung appears clear. There is a double-lumen catheter in place from the right int ernal jugular approach. There are old healed right rib fractures. CONCLUSION: Suspected consolidation at the left base and mild to moderate left pleural effusion. Parminder Mccormick MD on October 15, 2016 at 15:45 Board Certified Radiologist. This report was verified electronically.
[2016-10-15 16:03] LABS: ALT (GPT) 15 U/L (12-78); ANION GAP 7 MEQ/L (5-15); AST (GOT) 21 U/L (15-37); BICARBONATE 25.9 MEQ/L (21.0-32.0); BLOOD UREA NITROGEN 29 MG/DL (7-18); CHLORIDE 102 MEQ/L (98-107); GLOMERULAR FILTRATION RATE 10 ML/MIN (>89); POTASSIUM 4.2 MEQ/L (3.5-5.1); SODIUM (NA) 135 MEQ/L (136-145)
[2016-10-15 16:05] LABS: ALKALINE PHOSPHATASE 144 U/L (45-117); TOTAL BILIRUBIN ADULT 0.5 MG/DL (0.2-1.0)
[2016-10-15] MEDS ORDERED: SODIUM CHLOR 0.9% 1000 ML INJ 1,000 ML IV SCH (16:41)
[2016-10-15] MEDS ORDERED: BISACODYL 10 MG SUPP PR PRN (16:45)
[2016-10-15] MEDS ORDERED: SODIUM CHLORIDE 0.9% FLUSH 5 ML FLUSH FLUSH PRN (16:45)
[2016-10-15] MEDS ORDERED: ONDANSETRON HCL 4 MG/2 ML VIAL IVP PRN (16:45)
[2016-10-15] MEDS ORDERED: NALOXONE HCL 0.4 MG/ML AMP IV PRN (16:45)
[2016-10-15] MEDS ORDERED: ACETAMINOPHEN 325 MG TAB PO PRN (16:45)
--- NOTE | 2016-10-15 17:30 | HHI.HP ---
[facility] No Primary Care Physician Admission Diagnosis Pulmonary Effusion/Tachycardia/Hypoxia/Asthma Diagnoses: Chief Complaint: Shortness of breath, asthma Travel History International Travel<30 Days: No Contact w/Intl Traveler <30 Da: No Traveled to Known Affected Are: No Sepsis Criteria SIRS Criteria (2 or more): Heart rate over 90, RR > 20 or PaCO2 < 32 Sepsis Criteria (SIRS+source): Infect source susp/known History of Present Illness Patient is a 45-year-old male with primary medical history of asthma, HIV, end-stage renal disease on hemodialysis who came in to the hospital with complaints of worsening asthma symptoms, shortness of breath, cough within the past 4 days. Patient states that due to the weather change in the cold air his symptoms gotten worse. States he doesn't have any inhalers at home and does not have a primary care provider. Patient states he has increased cough with some expectoration of clear sputum, chest tightness and wheezing that has bothered him. He denies having any fevers, chills, chest pain , palpitations, headaches, dizziness. Denies hemoptysis. Denies any pain or discomfort. Denies any nausea, vomiting, diarrhea. Denies abdominal pain, cramping, dysuria. In the ED, patient was given Solu-Medrol IV, azithromycin IV, and nebulizer treatments. Patient is tachycardic in the 120s. With O2 sat 92-93% on room air. He states after he was given the treatment and Solu-Medrol his symptoms have improved. He is requesting if he can go home and take some steroids and antibiotics home instead. Discussed with patient result of the chest x-ray suspected consolidation at the left base and mild to moderate left pleural effusion. Patient states he is scheduled to go for hemodialysis tomorrow in [place]. He is being followed by casualty underwriter Dr. Perez. Labs reviewed CBC with mild anemia RBC 3.69, hemoglobin 11, hematocrit 35.6. CMP showed mild hyponatremia at 135, BUN 29, creatinine 7.18, EGFR 10, Alk Phos 144, total protein 11.4, albumin 2.8. Review of Systems Respiratory: COMPLAINS OF: Cough, Wheezing, Sputum production, Shortness of breath Except as stated in HPI: all other systems reviewed are Neg Past Family Social History Past Medical History Asthma HIV ESRD on HD Wednesday in [place] Past Surgical History Vas-Cath placement Reported Medications Tessalon Perles (Benzonatate) 100 Mg Cap 100 Mg PO TID PRN [Phosphate Binder] Unknown Dose [Bp Med] Unknown Dose Viread (Tenofovir Disoproxil Fumarate) 300 Mg Tab 300 Mg PO Q7DAYS Emtriva (Emtricitabine) 200 Mg Cap 200 Mg PO Q4D Sustiva (Efavirenz) 600 Mg Tab 600 Mg PO HS Allergies: Coded Allergies: *MDRO Multi-Drug Resistant Organism (Verified Adverse Reaction, Unknown, ) MDR-acinetobacter baumannii/haemol blood 07/2015 Active Ordered Medications Current Medications Medications (Trade) Dose Ordered Sig/Karl Route Start Time Stop Time Status Last Admin (NS Flush) 2 ml UNSCH PRN IVF 10/15/16 15:00 (Tessalon) 100 mg TID PRN PO 10/15/16 16:45 (Sustiva) 600 mg HS PO 10/15/16 21:00 (Emtriva) 200 mg Q4D PO 10/16/16 09:00 Tenofovir Disoproxil Fumarate 300 mg 300 mg DAILY PO 10/15/16 18:00 (NS 1000 ml Inj) 1,000 ml @ 83 mls/hr Q12H3M IV 10/15/16 16:41 (NS Flush) 2 ml UNSCH PRN FLUSH 10/15/16 16:45 (NS Flush) 2 ml BID FLUSH 10/15/16 21:00 (Tylenol) 650 mg Q4H PRN PO 10/15/16 16:45 (Zofran Inj) 4 mg Q6H PRN IVP 10/15/16 16:45 (Dulcolax Supp) 10 mg DAILY PRN LA 10/15/16 16:45 (Narcan Inj) 0.4 mg UNSCH PRN IV 10/15/16 16:45 Guaifenesin 600 mg 600 mg BID PO 10/15/16 21:00 Ceftriaxone Sodium 1000 mg/ Sodium Chloride 100 ml @ 200 mls/hr Q24H IV 10/15/16 18:00 (Zithromax Inj/ NS 250 ml Inj) 250 ml @ 250 mls/hr Q24H IV 10/16/16 15:00 Family History Denies any family medical history Social History Denies alcohol use Denies tobacco use Denies drug use Physical Exam Vital Signs Vital Signs Date Time Temp Pulse Resp B/P Pulse Ox O2 Delivery O2 Flow Rate FiO2 10/15/16 16:13 120 18 157/86 95 Room Air 10/15/16 15:08 95 Room Air 10/15/16 15:08 20 95 Room Air 10/15/16 14:50 22 10/15/16 14:28 98.0 115 20 192/115 91 Room Air Physical Exam GENERAL: This is a well-nourished, well-developed patient, mild shortness of breath. SKIN: No rashes, ecchymoses or lesions. Cool and dry. HEAD: Atraumatic. Normocephalic. No temporal or scalp tenderness. EYES: Pupils equal round and reactive. Extraocular motions intact. No scleral icterus. No injection or drainage. ENT: Nose without bleeding, purulent drainage or septal hematoma. Throat without erythema. Uvula midline. Airway patent. NECK: Trachea midline. No JVD or lymphadenopathy. Supple, nontender, no meningeal signs. CARDIOVASCULAR: Tachycardia without murmurs, gallops, or rubs. Right subclavian Vas-Cath RESPIRATORY: Coarse breath sounds. Rhonchi left lobe greater than the right. Poor air exchange GASTROINTESTINAL: Abdomen soft, non-tender, nondistended. Bowel sounds active 4. MUSCULOSKELETAL: Extremities without clubbing, cyanosis, or edema. No joint tenderness, effusion, or edema noted. NEUROLOGICAL: Awake and alert. No focal neuro deficit. Oriented 3. Motor and sensory grossly within normal limits. Normal speech. Laboratory Laboratory Tests Test 10/15/16 15:00 White Blood Count 6.2 Red Blood Count 3.69 Hemoglobin 11.0 Hematocrit 35.6 Mean Corpuscular Volume 96.4 Mean Corpuscular Hemoglobin 29.8 Mean Corpuscular Hemoglobin 30.9 Concent Red Cell Distribution Width 17.0 Platelet Count 162 Mean Platelet Volume 7.9 Neutrophils (%) (Auto) 47.5 Lymphocytes (%) (Auto) 34.9 Monocytes (%) (Auto) 13.6 Eosinophils (%) (Auto) 3.5 Basophils (%) (Auto) 0.5 Neutrophils # (Auto) 2.9 Lymphocytes # (Auto) 2.2 Monocytes # (Auto) 0.8 Eosinophils # (Auto) 0.2 Basophils # (Auto) 0.0 CBC Comment DIFF FINAL Differential Comment Sodium Level 135 Potassium Level 4.2 Chloride Level 102 Carbon Dioxide Level 25.9 Anion Gap 7 Blood Urea Nitrogen 29 Creatinine 7.18 Estimat Glomerular Filtration 10 Rate Random Glucose 85 Calcium Level 8.7 Total Bilirubin 0.5 Aspartate Amino Transf 21 (AST/SGOT) Alanine Aminotransferase 15 (ALT/SGPT) Alkaline Phosphatase 144 Total Protein 11.4 Albumin 2.8 Result Diagram: 10/15/16 1500 10/15/16 1500 Imaging Last Impressions Chest X-Ray 10/15/16 1452 Signed Impressions: Service Date/Time: , October 15, 2016 15:18 - CONCLUSION: Suspected consolidation at the left base and mild to moderate left pleural effusion. Parminder Mccormick MD Assessment and Plan Problem List: (1) Pleural effusion ICD Code: J90 Status: Acute (2) End stage renal disease ICD Code: N18.6 Status: Chronic (3) Asthma exacerbation ICD Code: J45.901 Status: Acute (4) HIV disease ICD Code: B20 Status: Chronic (5) Pneumonia ICD Code: J18.9 Status: Acute (6) Sepsis ICD Code: A41.9 Status: Acute Assessment and Plan Patient is a 45-year-old male with primary medical history of asthma, HIV, end-stage renal disease on hemodialysis who came in to the hospital with complaints of worsening asthma symptoms, shortness of breath, cough within the past 4 days. Patient states that due to the weather change in the cold air his symptoms gotten worse. States he doesn't have any inhalers at home and does not have a primary care provider. Patient states he has increased cough with some expectoration of clear sputum, chest tightness and wheezing that has bothered him. He denies having any fevers, chills, chest pain , palpitations, headaches, dizziness. Denies hemoptysis. Denies any pain or discomfort. Denies any nausea, vomiting, diarrhea. Denies abdominal pain, cramping, dysuria. Sepsis Pneumonia Asthma exacerbation - Tachycardia 122, respiratory rate greater than 20, chest x-ray showed suspected consolidation at the left base and mild to moderate left pleural effusion. - Azithromycin 500 mg every 24 hours IV, ceftriaxone 1 g every 24 hours IV - Solu-Medrol IV every 6 hours - Guaifenesin ER, Tessalon Perles - DuoNeb's scheduled and when necessary - IV fluids 83 mL's an hour - Check Blood cultures. UA. Lactic acid. - Check Legionella. Uterine culture - Recheck CBC, BMP tomorrow HIV - continue home meds Emtriva 200 Mg Q4D, Sustiva (Efavirenz) 600 Mg HS End-stage renal disease on HD - Consult nephrology - Due for hemodialysis tomorrow in [place] DVT prop SCDs Written by Margarette Schwartz, on behalf of Dr. Valencia on 10/16/16 at 17:29. patient seen in ER agree with management following. Code Status Full Code Discussed Condition With Patient, nursing, ED attending Physician Certification 2 Midnight Certification Type: Admission for Inpatient Services Order for Inpatient Services The services are ordered in accordance with Medicare regulations or non- Medicare payer requirements, as applicable. In the case of services not specified as inpatient-only, they are appropriately provided as inpatient services in accordance with the 2-midnight benchmark. Estimated LOS (days): 2 days is the estimated time the patient will need to remain in the hospital, assuming treatment plan goals are met and no additional complications. Post-Hospital Plan: Not yet determined Margarette Yung Oct 15, 2016 17:30 eNd Walker MD Oct 15, 2016 20:09
[2016-10-15] MEDS: cefTRIAXone INJ 1,000 MG in SODIUM CHLORIDE 0.9% INJ 100 ML IV SCH (18:00)
[2016-10-15] MEDS: TENOFOVIR DISOPROXIL FUMARATE 300 MG TAB PO SCH (18:00)
[2016-10-15] MEDS ORDERED: AZITHROMYCIN INJ 500 MG in SODIUM CHLOR 0.9% 250 ML INJ 250 ML IV SCH (18:00)
--- NOTE | 2016-10-15 18:10 | PD.CONS ---
HPI Service Nephrology Consult Requested By Reason for Consult ESRD Primary Care Physician No Primary Care Physician History of Present Illness Mr. Blair is a 45 year old male with history of HIV, ESRD on HD at [facility]. He has been admitted with complaints of shortness of breath, cough. CXR is suggestive of pneumonia with left sided effusion. Patient also has history of asthma. He did have dialysis yesterday. He is currently on room air, appears comfortable. Review of Systems Constitutional: COMPLAINS OF: Fatigue, DENIES: Fever, Weight gain, Weight loss Eyes: DENIES: Blurred vision, Diplopia Respiratory: COMPLAINS OF: Cough, Sputum production, Shortness of breath Cardiovascular: DENIES: Chest pain, Palpitations, Lower Extremity Edema, Orthopnea Gastrointestinal: DENIES: Abdominal pain, Black stools Musculoskeletal: DENIES: Joint pain, Muscle aches Past Family Social History Allergies: Coded Allergies: *MDRO Multi-Drug Resistant Organism (Verified Adverse Reaction, Unknown, ) MDR-acinetobacter baumannii/haemol blood 07/2015 Past Medical History Asthma HIV ESRD on HD Wednesday in [place] Past Surgical History AVF placements left upper extremity Right IJ PermCath. Reported Medications Tessalon Perles (Benzonatate) 100 Mg Cap 100 Mg PO TID PRN [Phosphate Binder] Unknown Dose [Bp Med] Unknown Dose Viread (Tenofovir Disoproxil Fumarate) 300 Mg Tab 300 Mg PO Q7DAYS Emtriva (Emtricitabine) 200 Mg Cap 200 Mg PO Q4D Sustiva (Efavirenz) 600 Mg Tab 600 Mg PO HS Active Ordered Medications Current Medications Medications (Trade) Dose Ordered Sig/Karl Route Start Time Stop Time Status Last Admin (NS Flush) 2 ml UNSCH PRN IVF 10/15/16 15:00 (Tessalon) 100 mg TID PRN PO 10/15/16 16:45 (Sustiva) 600 mg HS PO 10/15/16 21:00 (Emtriva) 200 mg Q4D PO 10/16/16 09:00 Tenofovir Disoproxil Fumarate 300 mg 300 mg DAILY PO 10/15/16 18:00 (NS 1000 ml Inj) 1,000 ml @ 83 mls/hr Q12H3M IV 10/15/16 16:41 (NS Flush) 2 ml UNSCH PRN FLUSH 10/15/16 16:45 (NS Flush) 2 ml BID FLUSH 10/15/16 21:00 (Tylenol) 650 mg Q4H PRN PO 10/15/16 16:45 (Zofran Inj) 4 mg Q6H PRN IVP 10/15/16 16:45 (Dulcolax Supp) 10 mg DAILY PRN WA 10/15/16 16:45 (Narcan Inj) 0.4 mg UNSCH PRN IV 10/15/16 16:45 Guaifenesin 600 mg 600 mg BID PO 10/15/16 21:00 Ceftriaxone Sodium 1000 mg/ Sodium Chloride 100 ml @ 200 mls/hr Q24H IV 10/15/16 18:00 (Zithromax Inj/ NS 250 ml Inj) 250 ml @ 250 mls/hr Q24H IV 10/16/16 15:00 Family History reviewed, non contributory Social History lives with a friend. He denies tobacco or ETOH Physical Exam Vital Signs Vital Signs Date Time Temp Pulse Resp B/P Pulse Ox O2 Delivery O2 Flow Rate FiO2 10/15/16 17:12 94 21 10/15/16 16:13 120 18 157/86 95 Room Air 10/15/16 15:08 95 Room Air 10/15/16 15:08 20 95 Room Air 10/15/16 14:50 22 10/15/16 14:28 98.0 115 20 192/115 91 Room Air Physical Exam GENERAL: alert, oriented. SKIN: Warm and dry. HEAD: Normocephalic. EYES: No scleral icterus. No injection or drainage. NECK: Supple, trachea midline. No JVD or lymphadenopathy. CARDIOVASCULAR: Regular rate and rhythm without murmurs, gallops, or rubs. RESPIRATORY: bilateral crackles. GASTROINTESTINAL: Abdomen soft, non-tender, nondistended. MUSCULOSKELETAL: No cyanosis, or edema. BACK: Nontender without obvious deformity. No CVA tenderness. Laboratory Laboratory Tests Test 10/15/16 15:00 White Blood Count 6.2 Red Blood Count 3.69 Hemoglobin 11.0 Hematocrit 35.6 Mean Corpuscular Volume 96.4 Mean Corpuscular Hemoglobin 29.8 Mean Corpuscular Hemoglobin 30.9 Concent Red Cell Distribution Width 17.0 Platelet Count 162 Mean Platelet Volume 7.9 Neutrophils (%) (Auto) 47.5 Lymphocytes (%) (Auto) 34.9 Monocytes (%) (Auto) 13.6 Eosinophils (%) (Auto) 3.5 Basophils (%) (Auto) 0.5 Neutrophils # (Auto) 2.9 Lymphocytes # (Auto) 2.2 Monocytes # (Auto) 0.8 Eosinophils # (Auto) 0.2 Basophils # (Auto) 0.0 CBC Comment DIFF FINAL Differential Comment Sodium Level 135 Potassium Level 4.2 Chloride Level 102 Carbon Dioxide Level 25.9 Anion Gap 7 Blood Urea Nitrogen 29 Creatinine 7.18 Estimat Glomerular Filtration 10 Rate Random Glucose 85 Calcium Level 8.7 Total Bilirubin 0.5 Aspartate Amino Transf 21 (AST/SGOT) Alanine Aminotransferase 15 (ALT/SGPT) Alkaline Phosphatase 144 Total Protein 11.4 Albumin 2.8 Result Diagram: 10/15/16 1500 10/15/16 1500 Assessment and Plan Problem List: (1) End stage renal disease Plan: usually dialyzes MWF. He will be dialyzed tomorrow. Avoid IVF. Monitor fluid and electrolytes. Avoid Gadolinium. (2) HIV disease Plan: continue anti HIV medications. (3) Pneumonia Plan: Antibiotics per hospitalist team. (4) Anemia Plan: Hemoglobin is stable, Epogen with dialysis per protocol. (5) Metabolic bone disease Plan: Obtain phosphorus level, start binders if needed. Assessment and Plan Thanks for the consult. I will follow. Red Hopper MD Oct 15, 2016 18:10
[2016-10-15] MEDS: RESP: ALBUTEROL 2.5 MG/IPRATROPIUM 0.5 MG NEB (SCH) NEB (21:00)
[2016-10-15 21:16] LABS: BLOOD, URINE MOD (NEG); COMMENT (UR) CULTURE INDICATED; CULTURE IF INDICATED CULTURE INDICATED; GLUCOSE,URINE TRACE mg/dL (NEG); KETONE, URINE NEG (NEG); NITRITE,URINE NEG (NEG); PH, URINE 7.5 (5.0-8.5); SQUAMOUS EPITHELIAL CELL URINE 2 /hpf (0-5); URINE COLOR LIGHT-YELLOW (YELLW/STRAW)
[2016-10-15] MEDS: guaiFENesin E.R. 600 MG TAB PO SCH (21:59)
[2016-10-15] MEDS: SODIUM CHLORIDE 0.9% FLUSH 5 ML FLUSH FLUSH SCH (21:59)
[2016-10-15] MEDS: BENZONATATE 100 MG CAP PO PRN (21:59)
[2016-10-16] VITALS (11 sets, daily range): BP systolic 160–189; BP diastolic 88–112; PULSE 94–105; RESP 18; TEMP 98.3–98.5; O2SAT 94–98
[2016-10-16] MEDS ORDERED: FUROSEMIDE 40 MG/4 ML VIAL IV PUSH ONE (01:00)
[2016-10-16] MEDS ORDERED: cloNIDine HCL 0.1 MG TAB PO PRN (01:00)
[2016-10-16] MEDS: BENZONATATE 100 MG CAP PO PRN ×2 (05:59→21:32)
[2016-10-16] MEDS: RESP: ALBUTEROL 2.5 MG/IPRATROPIUM 0.5 MG NEB (SCH) NEB ×3 (07:25→19:06)
[2016-10-16 07:32] LABS: AUTOMATED NEUTROPHIL # 3.5 TH/MM3 (1.8-7.7); BASOPHIL % 0.1 % (0.0-2.0); HEMATOCRIT 32.7 % (39.0-51.0); HEMO FLAGS DIFF FINAL; LYMPH % 21.2 % (9.0-44.0); LYMPHOCYTE # 1.1 TH/MM3 (1.0-4.8); MEAN CELL VOLUME 95.5 FL (80.0-100.0); MEAN CORPUSCULAR HEMOGLOBIN 29.8 PG (27.0-34.0); MEAN CORPUSCULAR HGB CONC 31.2 % (32.0-36.0); MONO % 10.5 % (0.0-8.0); NEUT % 68.2 % (16.0-70.0); PLATELET COUNT 161 TH/MM3 (150-450); RED BLOOD COUNT 3.42 MIL/MM3 (4.50-5.90); RED CELL DISTRIBUTION WIDTH 16.8 % (11.6-17.2); WHITE BLOOD COUNT 5.1 TH/MM3 (4.0-11.0)
[2016-10-16 07:49] LABS: BICARBONATE 23.1 MEQ/L (21.0-32.0); POTASSIUM 4.9 MEQ/L (3.5-5.1)
[2016-10-16] MEDS: EMTRICITABINE 200 MG CAP PO SCH (08:54)
[2016-10-16] MEDS: guaiFENesin E.R. 600 MG TAB PO SCH ×2 (08:54→21:33)
[2016-10-16] MEDS: TENOFOVIR DISOPROXIL FUMARATE 300 MG TAB PO SCH (08:54)
[2016-10-16] MEDS: SODIUM CHLORIDE 0.9% FLUSH 5 ML FLUSH FLUSH SCH ×2 (08:54→21:34)
--- NOTE | 2016-10-16 11:29 | HHI.PR ---
Subjective Remarks went for HD. Seen after HD. Patient says he is breathing better after HD, 4L were removed today with HD. No fever or chills. No much cough. No n/v/d/c. Objective Vitals Vital Signs Date Time Temp Pulse Resp B/P Pulse Ox O2 Delivery O2 Flow Rate FiO2 10/16/16 08:00 98.5 98 18 181/104 95 10/16/16 07:29 95 21 10/16/16 04:15 98.3 96 18 174/97 94 10/16/16 02:19 160/93 10/16/16 01:50 98.4 94 18 162/88 95 10/15/16 23:30 98.6 103 20 172/103 95 10/15/16 20:17 106 10/15/16 19:20 98.4 107 20 187/105 93 10/15/16 17:12 94 21 10/15/16 16:13 120 18 157/86 95 Room Air 10/15/16 15:08 95 Room Air 10/15/16 15:08 20 95 Room Air 10/15/16 14:50 22 10/15/16 14:28 98.0 115 20 192/115 91 Room Air I/O 10/15/16 10/15/16 10/15/16 10/16/16 10/16/16 10/16/16 07:00 15:00 23:00 07:00 15:00 23:00 Intake Total 304 ml 720 ml Output Total 450 ml Balance 304 ml 270 ml Intake Oral 720 ml IV Total 304 ml Output Urine Total 450 ml # Bowel Movements 0 Result Diagram: 10/16/16 0614 10/16/16 0614 Imaging Last Impressions Chest X-Ray 10/15/16 1452 Signed Impressions: Service Date/Time: September 15:18 - CONCLUSION: Suspected consolidation at the left base and mild to moderate left pleural effusion. Parminder Mccormick MD Objective Remarks GENERAL: This is a pleasant 45 AA yo male, well-nourished, well-developed patient, mild shortness of breath. SKIN: No rashes, ecchymoses or lesions. Cool and dry. HEAD: Atraumatic. Normocephalic. No temporal or scalp tenderness. EYES: Pupils equal round and reactive. Extraocular motions intact. No scleral icterus. No injection or drainage. ENT: Nose without bleeding, purulent drainage or septal hematoma. Throat without erythema. Uvula midline. Airway patent. NECK: Trachea midline. No JVD or lymphadenopathy. Supple, nontender, no meningeal signs. CARDIOVASCULAR: Tachycardia without murmurs, gallops, or rubs. Right subclavian Vas-Cath RESPIRATORY: Coarse breath sounds. Rhonchi left lobe greater than the right. Poor air exchange GASTROINTESTINAL: Abdomen soft, non-tender, nondistended. Bowel sounds active 4. MUSCULOSKELETAL: Extremities without clubbing, cyanosis, or edema. No joint tenderness, effusion, or edema noted. NEUROLOGICAL: Awake and alert. No focal neuro deficit. Oriented 3. Motor and sensory grossly within normal limits. Normal speech. A/P Problem List: (1) Pleural effusion ICD Code: J90 Status: Acute (2) End stage renal disease ICD Code: N18.6 Status: Chronic (3) Asthma exacerbation ICD Code: J45.901 Status: Acute (4) HIV disease ICD Code: B20 Status: Chronic (5) Pneumonia ICD Code: J18.9 Status: Acute (6) Sepsis ICD Code: A41.9 Status: Acute Assessment and Plan Patient is a 45-year-old male with primary medical history of asthma, HIV, end-stage renal disease on hemodialysis who came in to the hospital with complaints of worsening asthma symptoms, shortness of breath, cough within the past 4 days. Patient states that due to the weather change in the cold air his symptoms gotten worse. States he doesn't have any inhalers at home and does not have a primary care provider. Patient states he has increased cough with some expectoration of clear sputum, chest tightness and wheezing that has bothered him. He denies having any fevers, chills, chest pain , palpitations, headaches, dizziness. Denies hemoptysis. Denies any pain or discomfort. Denies any nausea, vomiting, diarrhea. Denies abdominal pain, cramping, dysuria. Sepsis Pneumonia. Left pleural effusion. Asthma exacerbation With sepsis criteria on admission : Tachycardia 122, respiratory rate greater than 20, chest x-ray showed suspected consolidation at the left base and mild to moderate left pleural effusion. Continue Azithromycin 500 mg every 24 hours IV, ceftriaxone 1 g every 24 hours IV Continue Solu-Medrol IV and duonebs, taper down as toklerated Continue Guaifenesin ER, Meredith Dodson DuoNeb's scheduled and when necessary DC IV fluids 83 mL's an hour Blood cultures pending. UA. Lactic acid nl. Check sputun cx, Legionella and pneumococcal ag Monitor CBC, BMP tomorrow S/P HD 10/16/17 with 4 l removed, breathing improved HIV - continue home meds Emtriva 200 Mg Q4D, Sustiva (Efavirenz) 600 Mg HS End-stage renal disease on HD Consult nephrology DVT prop SCDs Code Status Full Code Discussed Condition With Patient, nurse DC likely on Wednesday per nephrology Emmy Day MD Oct 16, 2016 11:29 Emmy Day MD Oct 16, 2016 11:29
[2016-10-16] MEDS ORDERED: SODIUM CHLOR 0.9% 1000 ML INJ 1,000 ML IV PRN ×3 (12:21)
[2016-10-16] MEDS ORDERED: GELATIN 12 MM/7 MM FOAM TOP PRN (12:30)
[2016-10-16] MEDS ORDERED: ONDANSETRON HCL 4 MG/2 ML VIAL IV PRN (12:30)
[2016-10-16] MEDS ORDERED: HEPARIN SODIUM - IV 10,000 UNITS/10 ML VIAL IVF PRN (12:30)
[2016-10-16] MEDS ORDERED: SODIUM CHLORIDE 0.9% FLUSH 5 ML FLUSH IVF PRN (12:30)
[2016-10-16] MEDS ORDERED: diphenhydrAMINE HCL 25 MG CAP PO PRN (12:30)
[2016-10-16] MEDS ORDERED: NITROGLYCERIN 0.4 MG SL 25 TABS/BTL SL PRN (12:30)
[2016-10-16] MEDS ORDERED: ACETAMINOPHEN 325 MG TAB PO PRN (12:30)
[2016-10-16] MEDS ORDERED: MANNITOL 12.5 GM/50 ML VIAL IV PRN (12:30)
[2016-10-16] MEDS ORDERED: ALBUMIN HUMAN 25% 25 GM/100 ML BAGP IV PRN (12:30)
--- NOTE | 2016-10-16 13:51 | HHI.NPPN ---
Subjective General Problems: Anemia Renal Failure: Chronic, End Stage Renal Disease Interval History Seen during dialysis. He has no complaints today. (Raysa Bernal) Objective Data Data 10/15/16 10/16/16 19:00 07:00 Intake Total 1024 ml Output Total 450 ml Balance 574 ml Intake Oral 720 ml IV Total 304 ml Output Urine Total 450 ml # Bowel Movements 0 Vital Signs Date Time Temp Pulse Resp B/P Pulse Ox O2 Delivery O2 Flow Rate FiO2 10/16/16 08:02 105 10/16/16 08:00 98.5 98 18 181/104 95 10/16/16 07:29 95 21 10/16/16 04:15 98.3 96 18 174/97 94 10/16/16 02:19 160/93 10/16/16 01:50 98.4 94 18 162/88 95 10/15/16 23:30 98.6 103 20 172/103 95 10/15/16 20:17 106 10/15/16 19:20 98.4 107 20 187/105 93 10/15/16 17:12 94 21 10/15/16 16:13 120 18 157/86 95 Room Air 10/15/16 15:08 95 Room Air 10/15/16 15:08 20 95 Room Air 10/15/16 14:50 22 10/15/16 14:28 98.0 115 20 192/115 91 Room Air (Raysa Bernal) -: 10/16/16 0614 10/16/16 0614 Microbiology 10/15/16 Aerobic Blood Culture - Preliminary, Resulted NO GROWTH IN 1 DAY 10/15/16 Anaerobic Blood Culture - Preliminary, Resulted NO GROWTH IN 1 DAY 10/15/16 Aerobic Blood Culture - Preliminary, Resulted NO GROWTH IN 1 DAY 10/15/16 Anaerobic Blood Culture - Preliminary, Resulted NO GROWTH IN 1 DAY 10/15/16 Legionella Antigen - Final, Complete PRESUMPTIVE NEGATIVE FOR LEGIONELLA P... 10/15/16 Urine Culture, Received Pending Imaging Last Impressions Chest X-Ray 10/15/16 1452 Signed Impressions: Service Date/Time: September 15:18 - CONCLUSION: Suspected consolidation at the left base and mild to moderate left pleural effusion. Parminder Mccormick MD Tubes & Lines: Perma-Cath Tubes & Lines Comment right chest (Raysa Bernal) Physical Exam General Appearance: Well Developed, No Acute Distress, Comfortable, Malnourished ( Raysa Bernal) Neck Neck Exam: Neck Supple (Raysa Bernal) Pulmonary Resp Exam: Clear Bilaterally, Breath Sounds Equal (Raysa Bernal) Cardiology CV Exam: Regular, Normal Sinus Rhythm (Raysa Bernal) Gastrointestinal/Abdomen GI Exam: Soft, Non-Tender (Raysa Bernal) Musculoskeletal MS Exam: Joints Intact, Normal Tone (Raysa Bernal) Integumentary Skin Exam: Warm, Dry (Raysa Bernal) Extremeties Extremities Exam: No Edema, Pedal Pulses Palpable (Raysa Bernal) Neurologic Neuro Exam: Alert, Awake, Oriented, Speech Clear, Moving All Extremities ( Raysa Bernal) Assessment/Plan Discussed Condition With: Patient Assessment Summary: Anemia of CKD, End Stage Renal Disease Problem List: (1) End stage renal disease Plan: continue MWF HD seen during dialysis today on a 3K, 350 BFR, goal 4L no electrolyte concerns Avoid IVF. Avoid Gadolinium. Monitor fluid and electrolytes. renal panel in am (2) HIV disease Plan: He is on HAART (3) Pneumonia Plan: he is on Zithromax and Rocephin (4) Anemia Plan: Hemoglobin is stable, Epogen with dialysis per protocol. (5) Metabolic bone disease Plan: Obtain phosphorus level with a.m. labs (Raysa Bernal) Plan patient was seen and examined. Agree with above assessment and plan. (Red Hopper MD) Raysa Bernal Oct 16, 2016 13:51 Red Hopper MD Oct 16, 2016 17:36
[2016-10-16] MEDS: AZITHROMYCIN INJ 500 MG in SODIUM CHLOR 0.9% 250 ML INJ 250 ML IV SCH (14:26)
--- NOTE | 2016-10-16 15:41 | EKG ---
Date Performed: 10/15/2016 Time Performed: 15:38:34 PTAGE: 45 years EKG: SINUS TACHYCARDIA NONSPECIFIC ST & T-WAVE ABNORMALITY ABNORMAL RHYTHM ECG PREVIOUS TRACING : 08/18/2016 08.48 Compared to prior tracing no significant change DOCTOR: Flaca Crump Interpretating Date/Time 10/16/2016 15:39:28
[2016-10-16] MEDS: cefTRIAXone INJ 1,000 MG in SODIUM CHLORIDE 0.9% INJ 100 ML IV SCH (17:04)
[2016-10-17] VITALS (7 sets, daily range): BP systolic 143–178; BP diastolic 83–106; PULSE 76–94; RESP 18–20; TEMP 97.5–98.3; O2SAT 95–100
[2016-10-17] MEDS: cloNIDine HCL 0.1 MG TAB PO PRN ×2 (00:09→08:52)
[2016-10-17 08:27] LABS: BICARBONATE 28.4 MEQ/L (21.0-32.0); POTASSIUM 4.4 MEQ/L (3.5-5.1)
[2016-10-17] MEDS: RESP: ALBUTEROL 2.5 MG/IPRATROPIUM 0.5 MG NEB (SCH) NEB ×3 (08:31→19:57)
[2016-10-17] MEDS: TENOFOVIR DISOPROXIL FUMARATE 300 MG TAB PO SCH (08:52)
[2016-10-17] MEDS: guaiFENesin E.R. 600 MG TAB PO SCH ×2 (08:52→21:42)
[2016-10-17] MEDS: SODIUM CHLORIDE 0.9% FLUSH 5 ML FLUSH FLUSH SCH ×2 (08:54→21:42)
[2016-10-17] MEDS: amLODIPine BESYLATE 5 MG TAB PO SCH (11:30)
--- NOTE | 2016-10-17 11:30 | HHI.PR ---
Subjective Remarks In the chair, sating well on room air . No fevers or chills. No chest pain . + nonproductive cough,. Feels tired. SOB improved. Objective Vitals Vital Signs Date Time Temp Pulse Resp B/P Pulse Ox O2 Delivery O2 Flow Rate FiO2 10/17/16 08:32 96 10/17/16 08:00 98.3 93 20 178/106 95 10/17/16 03:42 97.5 93 18 167/99 95 10/16/16 23:24 98.4 100 18 165/103 95 10/16/16 20:19 105 10/16/16 19:50 98.3 105 18 189/112 97 10/16/16 19:06 98 21 10/16/16 16:00 98.4 98 18 174/99 98 I/O 10/16/16 10/16/16 10/16/16 10/17/16 10/17/16 10/17/16 07:00 15:00 23:00 07:00 15:00 23:00 Intake Total 720 ml 722 ml 240 ml 240 ml Output Total 450 ml 4000 ml 0 ml Balance 270 ml -3278 ml 240 ml 240 ml Intake Oral 720 ml 720 ml 240 ml 240 ml IV Total 2 ml Output Urine Total 450 ml 0 ml Hemodialysis 4000 ml # Voids 0 5 4 # Bowel Movements 0 0 0 0 Result Diagram: 10/16/16 0614 10/17/16 0720 Imaging Last Impressions Chest X-Ray 10/15/16 1452 Signed Impressions: Service Date/Time: September 15:18 - CONCLUSION: Suspected consolidation at the left base and mild to moderate left pleural effusion. Parminder Mccormick MD Objective Remarks GENERAL: This is a pleasant 45 AA yo male, well-nourished, well-developed patient, mild shortness of breath. SKIN: No rashes, ecchymoses or lesions. Cool and dry. HEAD: Atraumatic. Normocephalic. No temporal or scalp tenderness. EYES: Pupils equal round and reactive. Extraocular motions intact. No scleral icterus. No injection or drainage. ENT: Nose without bleeding, purulent drainage or septal hematoma. Throat without erythema. Uvula midline. Airway patent. NECK: Trachea midline. No JVD or lymphadenopathy. Supple, nontender, no meningeal signs. CARDIOVASCULAR: Tachycardia without murmurs, gallops, or rubs. Right subclavian Vas-Cath RESPIRATORY: Coarse breath sounds. Rhonchi left lobe greater than the right. Poor air exchange GASTROINTESTINAL: Abdomen soft, non-tender, nondistended. Bowel sounds active 4. MUSCULOSKELETAL: Extremities without clubbing, cyanosis, or edema. No joint tenderness, effusion, or edema noted. NEUROLOGICAL: Awake and alert. No focal neuro deficit. Oriented 3. Motor and sensory grossly within normal limits. Normal speech. A/P Problem List: (1) Pleural effusion ICD Code: J90 Status: Acute (2) End stage renal disease ICD Code: N18.6 Status: Chronic (3) Asthma exacerbation ICD Code: J45.901 Status: Acute (4) HIV disease ICD Code: B20 Status: Chronic (5) Pneumonia ICD Code: J18.9 Status: Acute (6) Sepsis ICD Code: A41.9 Status: Acute Assessment and Plan Patient is a 45-year-old male with primary medical history of asthma, HIV, end-stage renal disease on hemodialysis who came in to the hospital with complaints of worsening asthma symptoms, shortness of breath, cough within the past 4 days. Patient states that due to the weather change in the cold air his symptoms gotten worse. States he doesn't have any inhalers at home and does not have a primary care provider. Patient states he has increased cough with some expectoration of clear sputum, chest tightness and wheezing that has bothered him. He denies having any fevers, chills, chest pain , palpitations, headaches, dizziness. Denies hemoptysis. Denies any pain or discomfort. Denies any nausea, vomiting, diarrhea. Denies abdominal pain, cramping, dysuria. Sepsis Pneumonia. Left pleural effusion. Asthma exacerbation With sepsis criteria on admission : Tachycardia 122, respiratory rate greater than 20, chest x-ray showed suspected consolidation at the left base and mild to moderate left pleural effusion. Continue Azithromycin 500 mg every 24 hours IV, ceftriaxone 1 g every 24 hours IV Continue Solu-Medrol IV and duonebs, taper down as toklerated Continue Guaifenesin ER, Tessalon Perles DuoNeb's scheduled and when necessary DC IV fluids 83 mL's an hour Blood cultures pending. UA. Lactic acid nl. Check sputun cx, Legionella and pneumococcal ag Monitor CBC, BMP tomorrow S/P HD 10/16/17 with 4 l removed, breathing improved Discussed with nephrology Dr Salinas, plan for HD on Wednesday BP noted elevated will start amlodipine. HIV - continue home meds Emtriva 200 Mg Q4D, Sustiva (Efavirenz) 600 Mg HS End-stage renal disease on HD Consult nephrology DVT prop SCDs Code Status Full Code Discussed Condition With Patient, nurse, nephrology DC likely on Wednesday per nephrology Emmy Day MD Oct 17, 2016 11:30
[2016-10-17] MEDS ORDERED: PILL SPLITTER OTHER PRN (11:45)
--- NOTE | 2016-10-17 12:45 | HHI.NPPN ---
Subjective General Problems: Anemia Renal Failure: Chronic, End Stage Renal Disease History of Present Illness 45 year old male with history of HIV, ESRD on HD at [facility]. He has been admitted with complaints of shortness of breath, cough. CXR is suggestive of pneumonia with left sided effusion. Patient also has history of asthma. Additional Remarks Patient is alert, feeling better, no SOB. Review of Systems General Constitutional: Fatigue Respiratory Lungs: SOB, Cough, Sputum Cardiovascular Cardiac: GODOY Objective Data Data 10/16/16 10/17/16 19:00 07:00 Intake Total 722 ml 480 ml Output Total 4000 ml 0 ml Balance -3278 ml 480 ml Intake Oral 720 ml 480 ml IV Total 2 ml Output Urine Total 0 ml Hemodialysis 4000 ml # Voids 0 9 # Bowel Movements 0 0 Vital Signs Date Time Temp Pulse Resp B/P Pulse Ox O2 Delivery O2 Flow Rate FiO2 10/17/16 12:00 97.9 88 20 143/91 97 10/17/16 08:32 96 10/17/16 08:00 98.3 93 20 178/106 95 10/17/16 03:42 97.5 93 18 167/99 95 10/16/16 23:24 98.4 100 18 165/103 95 10/16/16 20:19 105 10/16/16 19:50 98.3 105 18 189/112 97 10/16/16 19:06 98 21 10/16/16 16:00 98.4 98 18 174/99 98 -: 10/16/16 0614 10/17/16 0720 Microbiology 10/16/16 Influenza Types A,B Antigen (KATHIE) - Final, Complete NEGATIVE FOR FLU A AND B ANTIGEN.... 10/16/16 Streptococcus pneumoniae Antigen (M - Final, Complete PRESUMPTIVE NEGATIVE FOR STREPTOCOCCU... Tubes & Lines: Perma-Cath Tubes & Lines Comment right chest Physical Exam General Appearance: Well Developed, No Acute Distress, Comfortable, Malnourished Neck Neck Exam: Neck Supple Pulmonary Resp Exam: Clear Bilaterally, Breath Sounds Equal Cardiology CV Exam: Regular, Normal Sinus Rhythm Gastrointestinal/Abdomen GI Exam: Soft, Non-Tender Musculoskeletal MS Exam: Joints Intact, Normal Tone Integumentary Skin Exam: Warm, Dry Extremeties Extremities Exam: Trace Edema Neurologic Neuro Exam: Alert, Awake, Oriented, Speech Clear Assessment/Plan Discussed Condition With: Patient Assessment Summary: Anemia of CKD, End Stage Renal Disease Problem List: (1) End stage renal disease Plan: Doing better. no electrolyte concerns Avoid IVF. Avoid Gadolinium. Monitor fluid and electrolytes. HD to continue MWF. BP is elevated, Amlodipine added. (2) HIV disease Plan: He is on HAART (3) Pneumonia Plan: he is on Zithromax and Rocephin (4) Anemia Plan: Hemoglobin is stable, Epogen with dialysis per protocol. (5) Metabolic bone disease Plan: Obtain phosphorus level with a.m. labs Davida Salinas MD Oct 17, 2016 12:45
[2016-10-17] MEDS: AZITHROMYCIN INJ 500 MG in SODIUM CHLOR 0.9% 250 ML INJ 250 ML IV SCH (15:30)
[2016-10-17] MEDS: cefTRIAXone INJ 1,000 MG in SODIUM CHLORIDE 0.9% INJ 100 ML IV SCH (18:58)
[2016-10-17] MEDS: BENZONATATE 100 MG CAP PO PRN (21:42)
[2016-10-18] VITALS (7 sets, daily range): BP systolic 135–169; BP diastolic 72–105; PULSE 76–106; RESP 18–20; TEMP 97.7–98.7; O2SAT 94–99
[2016-10-18 07:37] LABS: AUTOMATED NEUTROPHIL # 1.9 TH/MM3 (1.8-7.7); BASOPHIL % 0.5 % (0.0-2.0); EOSINOPHIL # 0.3 TH/MM3 (0-0.4); EOSINOPHIL % 4.4 % (0.0-4.0); HEMATOCRIT 31.5 % (39.0-51.0); LYMPH % 52.6 % (9.0-44.0); LYMPHOCYTE # 3.2 TH/MM3 (1.0-4.8); MEAN CELL VOLUME 95.9 FL (80.0-100.0); MEAN CORPUSCULAR HEMOGLOBIN 30.1 PG (27.0-34.0); MEAN CORPUSCULAR HGB CONC 31.4 % (32.0-36.0); MONO % 11.6 % (0.0-8.0); NEUT % 30.9 % (16.0-70.0); PLATELET COUNT 167 TH/MM3 (150-450); RED BLOOD COUNT 3.28 MIL/MM3 (4.50-5.90); RED CELL DISTRIBUTION WIDTH 16.6 % (11.6-17.2)
[2016-10-18 07:43] LABS: HEMO FLAGS AUTO DIFF
[2016-10-18 08:27] LABS: BICARBONATE 26.8 MEQ/L (21.0-32.0); POTASSIUM 4.6 MEQ/L (3.5-5.1)
[2016-10-18 08:37] LABS: PLATELET ESTIMATE SMEAR NORMAL (NORMAL); PLATELET MORPHOLOGY NORMAL (NORMAL); SCAN/DIFF AUTO DIFF CONFIRMED
[2016-10-18] MEDS: amLODIPine BESYLATE 5 MG TAB PO SCH (09:32)
[2016-10-18] MEDS: guaiFENesin E.R. 600 MG TAB PO SCH ×2 (09:32→20:36)
[2016-10-18] MEDS: TENOFOVIR DISOPROXIL FUMARATE 300 MG TAB PO SCH (09:32)
--- NOTE | 2016-10-18 10:26 | HHI.PR ---
Subjective Remarks In the chair. Says he has sob, improved. Has nonproductive cough . Feels chest is congested. Satting well on room air. No n/v/d/c. No fevers or chills. Objective Vitals Vital Signs Date Time Temp Pulse Resp B/P Pulse Ox O2 Delivery O2 Flow Rate FiO2 10/18/16 08:00 97.7 92 20 164/105 98 10/18/16 04:00 98.0 89 18 135/83 94 10/18/16 00:00 98.3 91 18 140/72 96 10/17/16 20:20 90 10/17/16 20:00 98 21 10/17/16 20:00 98.2 94 18 163/98 100 10/17/16 16:00 98.1 91 20 144/83 97 10/17/16 12:00 97.9 88 20 143/91 97 I/O 10/17/16 10/17/16 10/17/16 10/18/16 10/18/16 10/18/16 07:00 15:00 23:00 07:00 15:00 23:00 Intake Total 240 ml 960 ml 618 ml Balance 240 ml 960 ml 618 ml Intake Oral 240 ml 960 ml 360 ml IV Total 258 ml # Voids 4 1 1 3 # Bowel Movements 0 0 Result Diagram: 10/18/16 0639 10/18/16 0639 Imaging Last Impressions Chest X-Ray 10/15/16 1452 Signed Impressions: Service Date/Time: September 15:18 - CONCLUSION: Suspected consolidation at the left base and mild to moderate left pleural effusion. Parminder Mccormick MD Objective Remarks GENERAL: This is a pleasant 45 AA yo male, well-nourished, well-developed patient, mild shortness of breath. SKIN: No rashes, ecchymoses or lesions. Cool and dry. HEAD: Atraumatic. Normocephalic. No temporal or scalp tenderness. EYES: Pupils equal round and reactive. Extraocular motions intact. No scleral icterus. No injection or drainage. ENT: Nose without bleeding, purulent drainage or septal hematoma. Throat without erythema. Uvula midline. Airway patent. NECK: Trachea midline. No JVD or lymphadenopathy. Supple, nontender, no meningeal signs. CARDIOVASCULAR: Tachycardia without murmurs, gallops, or rubs. Right subclavian Vas-Cath RESPIRATORY: Coarse breath sounds. Rhonchi left lobe greater than the right. Poor air exchange GASTROINTESTINAL: Abdomen soft, non-tender, nondistended. Bowel sounds active 4. MUSCULOSKELETAL: Extremities without clubbing, cyanosis, or edema. No joint tenderness, effusion, or edema noted. NEUROLOGICAL: Awake and alert. No focal neuro deficit. Oriented 3. Motor and sensory grossly within normal limits. Normal speech. A/P Problem List: (1) Pleural effusion ICD Code: J90 Status: Acute (2) End stage renal disease ICD Code: N18.6 Status: Chronic (3) Asthma exacerbation ICD Code: J45.901 Status: Acute (4) HIV disease ICD Code: B20 Status: Chronic (5) Pneumonia ICD Code: J18.9 Status: Acute (6) Sepsis ICD Code: A41.9 Status: Acute Assessment and Plan Patient is a 45-year-old male with primary medical history of asthma, HIV, end-stage renal disease on hemodialysis who came in to the hospital with complaints of worsening asthma symptoms, shortness of breath, cough within the past 4 days. Patient states that due to the weather change in the cold air his symptoms gotten worse. States he doesn't have any inhalers at home and does not have a primary care provider. Patient states he has increased cough with some expectoration of clear sputum, chest tightness and wheezing that has bothered him. He denies having any fevers, chills, chest pain , palpitations, headaches, dizziness. Denies hemoptysis. Denies any pain or discomfort. Denies any nausea, vomiting, diarrhea. Denies abdominal pain, cramping, dysuria. Sepsis Pneumonia. Left pleural effusion (chronic). Asthma exacerbation With sepsis criteria on admission : Tachycardia 122, respiratory rate greater than 20, chest x-ray showed suspected consolidation at the left base and mild to moderate left pleural effusion. Continue Azithromycin 500 mg every 24 hours IV, ceftriaxone 1 g every 24 hours IV Continue Solu-Medrol IV and duonebs, taper down as toklerated Continue Guaifenesin ER, Tessalon Perles DuoNeb's scheduled and when necessary DC IV fluids 83 mL's an hour Blood cultures pending. UA. Lactic acid nl. Check sputun cx, Legionella and pneumococcal ag Monitor CBC, BMP tomorrow S/P HD 10/16/17 with 4 l removed, breathing improved Discussed with nephrology Dr Salinas, plan for HD on Wednesday BP noted elevated started amlodipine. Repeat CXR 10/18. Hold on thoracentesis for now, as patient says he improved after HD. Plan for HD tomorrow HIV - continue home meds Emtriva 200 Mg Q4D, Sustiva (Efavirenz) 600 Mg HS End-stage renal disease on HD Consult nephrology DVT prop SCDs Code Status Full Code Discussed Condition With Patient, nurse, nephrology DC likely on Wednesday per nephrology Emmy Day MD Oct 18, 2016 10:26
--- NOTE | 2016-10-18 12:32 | HHI.NPPN ---
Subjective General Problems: Anemia Renal Failure: Chronic, End Stage Renal Disease History of Present Illness 45 year old male with history of HIV, ESRD on HD at [facility]. He has been admitted with complaints of shortness of breath, cough. CXR is suggestive of pneumonia with left sided effusion. Patient also has history of asthma. Additional Remarks Patient is alert, sitting and eating, no SOB. Review of Systems General Constitutional: Fatigue Respiratory Lungs: SOB, Cough, Sputum Cardiovascular Cardiac: GODOY Objective Data Data 10/17/16 10/18/16 19:00 07:00 Intake Total 960 ml 618 ml Balance 960 ml 618 ml Intake Oral 960 ml 360 ml IV Total 258 ml # Voids 1 4 # Bowel Movements 0 Vital Signs Date Time Temp Pulse Resp B/P Pulse Ox O2 Delivery O2 Flow Rate FiO2 10/18/16 12:00 97.9 92 18 153/95 97 10/18/16 08:00 97.7 92 20 164/105 98 10/18/16 04:00 98.0 89 18 135/83 94 10/18/16 00:00 98.3 91 18 140/72 96 10/17/16 20:20 90 10/17/16 20:00 98 21 10/17/16 20:00 98.2 94 18 163/98 100 10/17/16 16:00 98.1 91 20 144/83 97 -: 10/18/16 0639 10/18/16 0639 Tubes & Lines: Perma-Cath Tubes & Lines Comment right chest Physical Exam General Appearance: Well Developed, No Acute Distress, Comfortable, Malnourished Neck Neck Exam: Neck Supple Pulmonary Resp Exam: Clear Bilaterally, Breath Sounds Equal Cardiology CV Exam: Regular, Normal Sinus Rhythm Gastrointestinal/Abdomen GI Exam: Soft, Non-Tender Musculoskeletal MS Exam: Joints Intact, Normal Tone Integumentary Skin Exam: Warm, Dry Extremeties Extremities Exam: Trace Edema Neurologic Neuro Exam: Alert, Awake, Oriented, Speech Clear Assessment/Plan Discussed Condition With: Patient Assessment Summary: Anemia of CKD, End Stage Renal Disease Problem List: (1) End stage renal disease Plan: Doing better. no electrolyte concerns Avoid IVF. Avoid Gadolinium. Monitor fluid and electrolytes. HD to continue MWF. BP is better, started on Amlodipine . HD will be in AM. (2) HIV disease Plan: He is on HAART (3) Pneumonia Plan: he is on Zithromax and Rocephin (4) Anemia Plan: Hemoglobin is stable, Epogen with dialysis per protocol. (5) Metabolic bone disease Plan: Obtain phosphorus level with a.m. labs Davida Salinas MD Oct 18, 2016 12:31
[2016-10-18] MEDS: AZITHROMYCIN INJ 500 MG in SODIUM CHLOR 0.9% 250 ML INJ 250 ML IV SCH (15:09)
[2016-10-18] MEDS: RESP: ALBUTEROL 2.5 MG/IPRATROPIUM 0.5 MG NEB (SCH) NEB (19:38)
[2016-10-18] MEDS: SODIUM CHLORIDE 0.9% FLUSH 5 ML FLUSH FLUSH SCH (20:36)
[2016-10-18] MEDS: BENZONATATE 100 MG CAP PO PRN (20:36)
[2016-10-19] VITALS (10 sets, daily range): BP systolic 151–188; BP diastolic 84–110; PULSE 92–107; RESP 18–20; TEMP 97.3–98.4; O2SAT 96–97
--- NOTE | 2016-10-19 07:59 | HHI.PR ---
Subjective Remarks no complains good po no cough denies any shortness of breath going for hemodialysis this am Objective Vitals Vital Signs Date Time Temp Pulse Resp B/P Pulse Ox O2 Delivery O2 Flow Rate FiO2 10/19/16 04:00 97.5 96 20 162/96 97 10/19/16 00:00 97.6 99 20 151/84 96 10/18/16 20:19 106 10/18/16 20:00 98.7 101 18 161/103 94 10/18/16 16:00 98.0 92 18 169/96 99 10/18/16 12:00 97.9 92 18 153/95 97 10/18/16 08:00 97.7 92 20 164/105 98 10/18/16 08:00 76 I/O 10/18/16 10/18/16 10/18/16 10/19/16 10/19/16 10/19/16 07:00 15:00 23:00 07:00 15:00 23:00 Intake Total 720 ml 720 ml 480 ml Balance 720 ml 720 ml 480 ml Intake Oral 720 ml 720 ml 480 ml # Voids 3 1 2 2 # Bowel Movements 1 0 0 Result Diagram: 10/18/16 0639 10/18/16 0639 Objective Remarks awake and alert, oriented x 3 anicteric lungs no rales, no wheezes, no rhonchi rgular rhythm abdmen soft, nontender extremities no edema A/P Problem List: (1) Pleural effusion ICD Code: J90 Status: Acute (2) End stage renal disease ICD Code: N18.6 Status: Chronic (3) Asthma exacerbation ICD Code: J45.901 Status: Acute (4) HIV disease ICD Code: B20 Status: Chronic (5) Pneumonia ICD Code: J18.9 Status: Acute (6) Sepsis ICD Code: A41.9 Status: Acute Assessment and Plan Patient is a 45-year-old male with primary medical history of asthma, HIV, end-stage renal disease on hemodialysis who came in to the hospital with complaints of worsening asthma symptoms, shortness of breath, cough within the past 4 days. Patient states that due to the weather change in the cold air his symptoms gotten worse. States he doesn't have any inhalers at home and does not have a primary care provider. Patient states he has increased cough with some expectoration of clear sputum, chest tightness and wheezing that has bothered him. He denies having any fevers, chills, chest pain , palpitations, headaches, dizziness. Denies hemoptysis. Denies any pain or discomfort. Denies any nausea, vomiting, diarrhea. Denies abdominal pain, cramping, dysuria. Sepsis Pneumonia. Left pleural effusion (chronic). Acute bronchitis - improved With sepsis criteria on admission : Tachycardia 122, respiratory rate greater than 20, chest x-ray showed suspected consolidation at the left base and mild to moderate left pleural effusion. No leukocytosis On Azithromycin 500 mg every 24 hours IV, ceftriaxone 1 g every 24 hours IV Continue Guaifenesin ER, Tessalon Perles DuoNeb's scheduled and when necessary. Patient is a non smoker. Start on MDIs Blood cultures pending- negative . UA. Lactic acid nl. Check sputun cx, Legionella and pneumococcal ag - negative S/P HD 10/16/17 with 4 l removed, breathing improved- HD today CXR woth pesistent consolidation with effusion- looks chronic Hold off on thoracentesis - SOB improved with HD. Plan for HD today On Ceftriaxone and Zithromax. will consult ID for recommendations- ? need for further antibiotics HIV - continue home meds Emtriva 200 Mg Q4D, Sustiva (Efavirenz) 600 Mg HS End-stage renal disease on HD. Nephrology ff. OP HD in [facility] HTN uncontrolled- increase Amlodipine to 5 mg daily. clonidine 0.1 mg po q 6 prn for SBP > 160 DVT prop - patient up and ambulating Advise to ff up with a PCP locally- states he will set up with one Roxanne Ramos MD Oct 19, 2016 07:59
[2016-10-19] MEDS: RESP: ALBUTEROL 2.5 MG/IPRATROPIUM 0.5 MG NEB (SCH) NEB ×2 (08:21→13:27)
[2016-10-19] MEDS: amLODIPine BESYLATE 5 MG TAB PO SCH (09:00)
[2016-10-19] MEDS: EPOETIN ALFA 10,000 UNITS/ML VIAL IV PRN (11:41)
[2016-10-19] MEDS: GENTAMICIN SULFATE (DIALYSIS USE ONLY) 20 MG/2 ML VIAL IV PRN (11:41)
[2016-10-19] MEDS: HEPARIN SODIUM - IV 10,000 UNITS/10 ML VIAL PRN (11:41)
--- NOTE | 2016-10-19 11:48 | HHI.NPPN ---
Subjective General Problems: Anemia Renal Failure: Chronic, End Stage Renal Disease History of Present Illness 45 year old male with history of HIV, ESRD on HD at [facility]. He has been admitted with complaints of shortness of breath, cough. CXR is suggestive of pneumonia with left sided effusion. Patient also has history of asthma. Interval History Seen during dialysis. No acute concerns. (Raysa Bernal) Review of Systems General Constitutional: Fatigue (Raysa Bernal) Respiratory Lungs: SOB, Cough, Sputum (Raysa Bernal) Cardiovascular Cardiac: GODOY (Raysa Bernal) Objective Data Data 10/18/16 10/19/16 19:00 07:00 Intake Total 720 ml 1200 ml Balance 720 ml 1200 ml Intake Oral 720 ml 1200 ml # Voids 1 4 # Bowel Movements 1 0 Vital Signs Date Time Temp Pulse Resp B/P Pulse Ox O2 Delivery O2 Flow Rate FiO2 10/19/16 08:00 97.8 95 20 188/98 97 10/19/16 04:00 97.5 96 20 162/96 97 10/19/16 00:00 97.6 99 20 151/84 96 10/18/16 20:19 106 10/18/16 20:00 98.7 101 18 161/103 94 10/18/16 16:00 98.0 92 18 169/96 99 10/18/16 12:00 97.9 92 18 153/95 97 (Raysa Bernal) -: 10/18/16 0639 10/18/16 0639 Imaging Current Medications Medications (Trade) Dose Ordered Sig/Karl Route Start Time Stop Time Status Last Admin (NS Flush) 2 ml UNSCH PRN IVF 10/15/16 15:00 (Tessalon) 100 mg TID PRN PO 10/15/16 16:45 10/18/16 20:36 (Sustiva) 600 mg HS PO 10/15/16 21:00 10/18/16 20:36 (Emtriva) 200 mg Q4D PO 10/16/16 09:00 10/16/16 08:54 (Viread) 300 mg DAILY PO 10/15/16 18:00 10/18/16 09:32 (NS Flush) 2 ml UNSCH PRN FLUSH 10/15/16 16:45 (NS Flush) 2 ml BID FLUSH 10/15/16 21:00 10/18/16 20:36 (Tylenol) 650 mg Q4H PRN PO 10/15/16 16:45 (Zofran Inj) 4 mg Q6H PRN IVP 10/15/16 16:45 (Dulcolax Supp) 10 mg DAILY PRN OH 10/15/16 16:45 (Narcan Inj) 0.4 mg UNSCH PRN IV 10/15/16 16:45 Guaifenesin 600 mg 600 mg BID PO 10/15/16 21:00 10/18/16 20:36 Ceftriaxone Sodium 1000 mg/ Sodium Chloride 100 ml @ 200 mls/hr Q24H IV 10/15/16 18:00 10/17/16 18:58 Azithromycin 500 mg/Sodium Chloride 250 ml @ 250 mls/hr Q24H IV 10/16/16 15:00 10/18/16 15:09 (NS 1000 ml Inj) 1,000 ml @ 0 mls/hr Q0M PRN IV 10/16/16 12:21 Heparin Sodium (Porcine) 8000 units 8,000 units UNSCH PRN IVF 10/16/16 12:30 Sodium Chloride 1,000 ml @ 200 mls/hr Q5H PRN IV 10/16/16 12:21 (NS 1000 ml Inj) 1,000 ml @ 0 mls/hr Q0M PRN IV 10/16/16 12:21 (Mannitol Inj) 12.5 gm UNSCH PRN IV 10/16/16 12:30 (Albumin 25% Inj) 25 gm UNSCH PRN IV 10/16/16 12:30 (NS Flush) 5 ml UNSCH PRN IVF 10/16/16 12:30 (Heparin Inj) UNSCH PRN .XX 10/16/16 12:30 10/19/16 11:41 (Gentamicin (Dialysis) Inj) 20 mg UNSCH PRN IV 10/16/16 12:30 10/19/16 11:41 (Zofran Inj) 4 mg UNSCH PRN IV 10/16/16 12:30 (Tylenol) 650 mg UNSCH PRN PO 10/16/16 12:30 (Benadryl) 25 mg UNSCH PRN PO 10/16/16 12:30 (Nitrostat Sl) 0.4 mg UNSCH PRN SL 10/16/16 12:30 (Catapres) 0.1 mg UNSCH PRN PO 10/16/16 12:30 10/17/16 08:52 (Epogen Inj) 5,000 units UNSCH PRN IV 10/16/16 12:30 10/19/16 11:41 (Gelfoam 12 Mm/7 Mm Top) 1 foam UNSCH PRN TOP 10/16/16 12:30 (Pill Splitter) 1 ea UNSCH PRN OTHER 10/17/16 11:45 (Symbicort 80-4.5 Mcg Inh) 1 puff Q12HR INH 10/19/16 09:00 (Norvasc) 5 mg DAILY PO 10/19/16 09:00 Tubes & Lines: Perma-Cath Tubes & Lines Comment right chest (Raysa Bernal) Physical Exam General Appearance: Well Developed, No Acute Distress, Comfortable, Malnourished ( Raysa Bernal) Neck Neck Exam: Neck Supple (Raysa Bernal) Pulmonary Resp Exam: Clear Bilaterally, Breath Sounds Equal (Raysa Bernal) Cardiology CV Exam: Regular, Normal Sinus Rhythm (Raysa Bernal) Gastrointestinal/Abdomen GI Exam: Soft, Non-Tender (Raysa Bernal) Musculoskeletal MS Exam: Joints Intact, Normal Tone (Raysa Bernal) Integumentary Skin Exam: Warm, Dry (Rasya Bernal) Extremeties Extremities Exam: Trace Edema (Raysa Bernal) Neurologic Neuro Exam: Alert, Awake, Oriented, Speech Clear (Raysa Bernal) Assessment/Plan Discussed Condition With: Patient Assessment Summary: Anemia of CKD, End Stage Renal Disease Problem List: (1) End stage renal disease Plan: MWF HD, seen during dialysis on a 2K, 350 BFR, goal 3L has permcath for HD no electrolyte concerns, continue current plan he has existing outpatient HD arrangements in [place] when discharged Avoid IVF. Avoid Gadolinium. high protein diet (2) HIV disease Plan: He is on HAART (3) Pneumonia Plan: he is on Zithromax and Rocephin ID to be consulted regarding continuation of Abx therapy (4) Anemia Plan: Hemoglobin is stable, Epogen with dialysis per protocol. (5) Metabolic bone disease Plan: phosphorus level is acceptable (Raysa Bernal) Plan patient was seen and examined. Agree with above assessment and plan. (Red Hopper MD) Raysa Bernal Oct 19, 2016 11:48 Red Hopper MD Oct 20, 2016 11:44
[2016-10-19] MEDS: guaiFENesin E.R. 600 MG TAB PO SCH ×2 (12:54→20:46)
[2016-10-19] MEDS: TENOFOVIR DISOPROXIL FUMARATE 300 MG TAB PO SCH (12:54)
[2016-10-19] MEDS: SODIUM CHLORIDE 0.9% FLUSH 5 ML FLUSH FLUSH SCH ×2 (12:56→20:47)
[2016-10-19] MEDS: BUDESONIDE-FORMOTEROL 80/4.5 MCG INHALER INH SCH ×2 (13:11→20:46)
--- NOTE | 2016-10-19 15:03 | PD.ID.CON ---
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 Social History No Tobacco. No ETOH. No Illicit Drugs. Physical Exam Vital Signs Vital Signs Date Time Temp Pulse Resp B/P Pulse Ox O2 Delivery O2 Flow Rate FiO2 10/19/16 13:28 97 10/19/16 08:00 97.8 95 20 188/98 97 10/19/16 04:00 97.5 96 20 162/96 97 10/19/16 00:00 97.6 99 20 151/84 96 10/18/16 20:19 106 10/18/16 20:00 98.7 101 18 161/103 94 10/18/16 16:00 98.0 92 18 169/96 99 Physical Exam CONSTITUTIONAL/GENERAL: This is an adequately nourished patient, in no apparent distress. TUBES/LINES/DRAINS: AV fistula in LUE - good thrill, site looks ok SKIN: No jaundice, rashes, or lesions. Skin temperature appropriate. Not diaphoretic. HEAD: Atraumatic. Normocephalic. EYES: Pupils equal and round and reactive. Extraocular motions intact. No scleral icterus. No injection or drainage. Fundi not examined. ENT: Hearing grossly normal. Nose without bleeding or purulent drainage. Throat without visible erythema, exudates, masses, or lesions. NECK: Trachea midline. Supple, nontender. No palpable thyroid enlargement or nodularity. CARDIOVASCULAR: Regular rate and rhythm without murmurs, gallops, or rubs. No JVD. Peripheral pulses symmetric. RESPIRATORY/CHEST: Symmetric, unlabored respirations. Crackles L base to auscultation, Breath sounds diminished bilaterally. GASTROINTESTINAL: Abdomen soft, non-tender, nondistended. No hepato-splenomegaly , or palpable masses. No guarding. Bowel sounds present. GENITOURINARY: Without palpable bladder distension. MUSCULOSKELETAL: Extremities without clubbing, cyanosis, or edema. No joint tenderness or effusion noted. No calf tenderness. No mottling or clubbing. LYMPHATICS: No palpable cervical or supraclavicular adenopathy. NEUROLOGICAL: Awake and alert. Motor and sensory grossly within normal limits. Follows commands. Normal speech Moves all extremities. PSYCHIATRIC: No obvious anxiety/depression. no apparent hallucinations or other psychotic thought process. Laboratory Date/Time Procedure Status Source Growth 10/16/16 19:30 Streptococcus pneumoniae Antigen (M - Final Complete Urine Random Urine PRESUMPTIVE NEGATIVE FOR STREPTOCOCCU... 10/16/16 19:30 Influenza Types A,B Antigen (KATHIE) - Final Complete Nasal Washing NEGATIVE FOR FLU A AND B ANTIGEN.... 10/15/16 20:35 Urine Culture - Final Complete Urine Clean Catch NO GROWTH IN 48 HOURS. 10/15/16 20:35 Legionella Antigen - Final Complete Urine Clean Catch PRESUMPTIVE NEGATIVE FOR LEGIONELLA P... 10/15/16 19:05 Aerobic Blood Culture - Preliminary Resulted Blood Peripheral NO GROWTH IN 4 DAYS 10/15/16 19:05 Anaerobic Blood Culture - Preliminary Resulted Blood Peripheral NO GROWTH IN 4 DAYS Result Diagram: 10/18/16 0639 10/18/16 0639 Imaging Last Impressions Chest X-Ray 10/15/16 1592 Signed Impressions: Service Date/Time: September 15:18 - CONCLUSION: Suspected consolidation at the left base and mild to moderate left pleural effusion. 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
[2016-10-19] MEDS ORDERED: cloNIDine HCL 0.1 MG TAB PO PRN (16:00)
[2016-10-19] MEDS: AZITHROMYCIN INJ 500 MG in SODIUM CHLOR 0.9% 250 ML INJ 250 ML IV SCH (16:07)
[2016-10-19] MEDS: cefTRIAXone INJ 1,000 MG in SODIUM CHLORIDE 0.9% INJ 100 ML IV SCH ×2 (18:55→19:00)
[2016-10-19] MEDS: BENZONATATE 100 MG CAP PO PRN (20:46)
[2016-10-20] VITALS (7 sets, daily range): BP systolic 143–167; BP diastolic 64–96; PULSE 78–97; RESP 16–18; TEMP 97.9–98.6; O2SAT 94–97
[2016-10-20] MEDS: CARVEDILOL 12.5 MG TAB PO SCH ×2 (10:13→21:16)
[2016-10-20] MEDS: amLODIPine BESYLATE 5 MG TAB PO SCH (10:13)
[2016-10-20] MEDS: TENOFOVIR DISOPROXIL FUMARATE 300 MG TAB PO SCH (10:13)
[2016-10-20] MEDS: BENZONATATE 100 MG CAP PO PRN ×2 (10:13→21:19)
[2016-10-20] MEDS: guaiFENesin E.R. 600 MG TAB PO SCH ×2 (10:13→21:16)
[2016-10-20] MEDS: EMTRICITABINE 200 MG CAP PO SCH (10:13)
[2016-10-20] MEDS: BUDESONIDE-FORMOTEROL 80/4.5 MCG INHALER INH SCH ×2 (10:14→21:17)
[2016-10-20] MEDS: SODIUM CHLORIDE 0.9% FLUSH 5 ML FLUSH FLUSH SCH ×2 (10:14→21:17)
--- NOTE | 2016-10-20 10:41 | HHI.PR ---
Subjective Remarks doing great no cough no shortness of breath- up and ambulating Objective Vitals Vital Signs Date Time Temp Pulse Resp B/P Pulse Ox O2 Delivery O2 Flow Rate FiO2 10/20/16 08:01 98.6 97 18 143/66 96 10/20/16 04:00 98.1 91 18 167/96 94 10/20/16 00:00 98.2 89 16 163/90 95 10/19/16 20:00 98.4 96 18 159/93 97 10/19/16 20:00 96 10/19/16 16:04 154/88 10/19/16 16:00 98.1 107 20 156/110 96 10/19/16 13:28 97 10/19/16 12:00 97.3 98 20 168/103 97 I/O 10/19/16 10/19/16 10/19/16 10/20/16 10/20/16 10/20/16 07:00 15:00 23:00 07:00 15:00 23:00 Intake Total 480 ml 492 ml 480 ml Output Total 3000 ml Balance 480 ml -2508 ml 480 ml Intake Oral 480 ml 240 ml 480 ml IV Total 252 ml Hemodialysis 3000 ml # Voids 2 2 2 1 # Bowel Movements 0 1 0 0 Result Diagram: 10/18/16 0639 10/18/16 0639 Imaging Last Impressions Chest X-Ray 10/15/16 1452 Signed Impressions: Service Date/Time: September 15:18 - CONCLUSION: Suspected consolidation at the left base and mild to moderate left pleural effusion. Parminder Mccormick MD Objective Remarks awake and alert, oriented x 3 anicteric lungs no rales, no wheezes, no rhonchi regular rhythm abdomen soft, nontender extremities no edema A/P Problem List: (1) Pleural effusion ICD Code: J90 Status: Acute (2) End stage renal disease ICD Code: N18.6 Status: Chronic (3) Asthma exacerbation ICD Code: J45.901 Status: Acute (4) HIV disease ICD Code: B20 Status: Chronic (5) Pneumonia ICD Code: J18.9 Status: Acute (6) Sepsis ICD Code: A41.9 Status: Acute Assessment and Plan Patient is a 45-year-old male with primary medical history of asthma, HIV, end-stage renal disease on hemodialysis who came in to the hospital with complaints of worsening asthma symptoms, shortness of breath, cough within the past 4 days. Patient states that due to the weather change in the cold air his symptoms gotten worse. States he doesn't have any inhalers at home and does not have a primary care provider. Patient states he has increased cough with some expectoration of clear sputum, chest tightness and wheezing that has bothered him. He denies having any fevers, chills, chest pain , palpitations, headaches, dizziness. Denies hemoptysis. Denies any pain or discomfort. Denies any nausea, vomiting, diarrhea. Denies abdominal pain, cramping, dysuria. Sepsis Pneumonia. Left pleural effusion (chronic). Acute bronchitis - improved With sepsis criteria on admission : Tachycardia 122, respiratory rate greater than 20, chest x-ray showed suspected consolidation at the left base and mild to moderate left pleural effusion. No leukocytosis On Azithromycin 500 mg every 24 hours IV, ceftriaxone 1 g every 24 hours IV Continue Guaifenesin ER, Tessalon Perles DuoNeb's scheduled and when necessary. Patient is a non smoker. MDIs Blood cultures negative . UA. Lactic acid nl. sputun cx, Legionella and pneumococcal ag - negative S/P HD 10/16/17 with 4 l removed, breathing improved- HD today CXR woth pesistent consolidation with effusion- looks chronic Hold off on thoracentesis - SOB improved with HD. Appreciate ID - DC all antibiotics d/w Dr. Hartman- she wants to see patient today prior to any DC planning to determine if he needs a CT scan HIV - continue home meds Emtriva 200 Mg Q4D, Sustiva (Efavirenz) 600 Mg HS End-stage renal disease on HD. Nephrology ff. OP HD in [facility] HTN - improved - Amlodipine to 5 mg daily.- coreg bid DVT prop - patient up and ambulating Advise to ff up with a PCP locally- states he will set up with one Roxanne Ramos MD Oct 20, 2016 10:41
[2016-10-20] MEDS ORDERED: LEVOFLOXACIN 500 MG TAB PO SCH (10:45)
[2016-10-20] MEDS ORDERED: SYMB80AE INH (10:55)
[2016-10-20] MEDS ORDERED: AMLO5 PO (10:55)
[2016-10-20] MEDS ORDERED: CARV12.5 PO (10:55)
--- NOTE | 2016-10-20 11:04 | HHI.NPPN ---
Subjective General Problems: Anemia Renal Failure: Chronic, End Stage Renal Disease Interval History He looks well. May be discharged today. (Raysa Bernal) Review of Systems General Constitutional: Fatigue (Raysa Bernal) Respiratory Lungs: SOB, Cough, Sputum (Raysa Bernal) Cardiovascular Cardiac: GODOY (Raysa Bernal) Objective Data Data 10/19/16 10/20/16 19:00 07:00 Intake Total 492 ml 480 ml Output Total 3000 ml Balance -2508 ml 480 ml Intake Oral 240 ml 480 ml IV Total 252 ml Hemodialysis 3000 ml # Voids 2 3 # Bowel Movements 1 0 Vital Signs Date Time Temp Pulse Resp B/P Pulse Ox O2 Delivery O2 Flow Rate FiO2 10/20/16 08:49 97 21 10/20/16 08:01 98.6 97 18 143/66 96 10/20/16 04:00 98.1 91 18 167/96 94 10/20/16 00:00 98.2 89 16 163/90 95 10/19/16 20:00 98.4 96 18 159/93 97 10/19/16 20:00 96 10/19/16 16:04 154/88 10/19/16 16:00 98.1 107 20 156/110 96 10/19/16 13:28 97 10/19/16 12:00 97.3 98 20 168/103 97 (Raysa Bernal) -: 10/18/16 0639 10/18/16 0639 Tubes & Lines: Perma-Cath Tubes & Lines Comment right chest (Raysa Bernal) Physical Exam General Appearance: Well Developed, No Acute Distress, Comfortable, Malnourished ( Raysa Bernal) Neck Neck Exam: Neck Supple (Raysa Bernal) Pulmonary Resp Exam: Clear Bilaterally, Breath Sounds Equal (Raysa Bernal) Cardiology CV Exam: Regular, Normal Sinus Rhythm (Raysa Bernal) Gastrointestinal/Abdomen GI Exam: Soft, Non-Tender (Raysa Bernal) Musculoskeletal MS Exam: Joints Intact, Normal Tone (Raysa Bernal) Integumentary Skin Exam: Warm, Dry (Raysa Bernal) Extremeties Extremities Exam: Trace Edema (Raysa Bernal) Neurologic Neuro Exam: Alert, Awake, Oriented, Speech Clear (Raysa Bernal) Assessment/Plan Discussed Condition With: Patient Assessment Summary: Anemia of CKD, End Stage Renal Disease Problem List: (1) End stage renal disease Plan: MWF HD, 3L UF yesterday has permcath for HD no electrolyte concerns, continue current plan he has existing outpatient HD arrangements in [place] when discharged Avoid IVF. Avoid Gadolinium. high protein diet (2) HIV disease Plan: He is on HAART (3) Pneumonia Plan: Zithromax and Rocephin were stopped to have Outpatient chest xray after discharge ID has evaluated (4) Anemia Plan: Hemoglobin is stable, Epogen with dialysis per protocol. (5) Metabolic bone disease Plan: phosphorus level is acceptable (Raysa Bernal) Plan patient was seen and examined. Agree with above assessment and plan. We will continue dialysis 3 times/week. ID has been consulted. Discussed with Dr. Ramos. (Red Hopper MD) Raysa Bernal Oct 20, 2016 11:04 Red Hopper MD Oct 20, 2016 12:05
--- NOTE | 2016-10-20 11:34 | RADRPT ---
EXAM DATE/TIME: 10/20/2016 10:52 [facility] COMPARISON: CHEST SINGLE AP, October 15, 2016, 15:18. INDICATIONS : Evaluate pneumonia. MEDICAL HISTORY : Asthma. SURGICAL HISTORY : Dialysis catheter. ENCOUNTER: Subsequent ACUITY: 4 - 6 days PAIN SCORE: 0/10 LOCATION: Bilateral chest FINDINGS: The heart is enlarged. There is a dialysis catheter in good position. There is left basilar effusion and infiltrate in the left lower lobe. This is improved when compared to previous exam. The right arun g demonstrates minimal effusion but is otherwise clear. The visualized bony structures are grossly in tact. CONCLUSION: 1. Improving left basilar infiltrate and effusion. Cornell Haque MD on October 20, 2016 at 11:30 Board Certified Radiologist. This report was verified electronically.
--- NOTE | 2016-10-20 16:47 | RADRPT ---
EXAM DATE/TIME: 10/20/2016 15:49 [facility] COMPARISON: CT THORAX W/O CONTRAST, August 22, 2016, 15:10. INDICATIONS : Shortness of breath; persistent infiltrates. RADIATION DOSE: 5.20 CTDIvol (mGy) MEDICAL HISTORY : Cardiovascular disease. Hypertension. HIV. SURGICAL HISTORY : None. ENCOUNTER: Initial ACUITY: 1 week PAIN SCALE: 5/10 LOCATION: chest TECHNIQUE: Volumetric scanning of the chest was performed. Using automated exposure control and adjustment of t he mA and/or kV according to patient size, radiation dose was kept as low as reasonably achievable to obtain optimal diagnostic quality images. FINDINGS: The examination demonstrates a moderate size left-sided pleural effusion with compressive atelectasis of the left lower lobe. There is minimal pleural thickening posteriorly on the right. The right lung is otherwise clear. The heart is at the upper limits of normal in size. The exam does demonstrate a small pericardial eff usion. No significant hilar or mediastinal adenopathy is present. There is a central venous catheter in good position. Thereafter a limited portion of upper abdomen visualized is unremarkable. The visualized osseous structures demonstrate multiple old, healed right-sided rib fractures. CONCLUSION: 1. Left pleural effusion and compressive atelectasis unchanged compared to previous study dated . 2. Small pericardial effusion which is new when compared to previous. 3. Old, healed rib fractures on the right. Cornell Haque MD on October 20, 2016 at 16:43 Board Certified Radiologist. This report was verified electronically.
--- NOTE | 2016-10-21 11:21 | HHI.NPPN ---
Subjective General Problems: Anemia Renal Failure: Chronic, End Stage Renal Disease Interval History Seen during dialysis. Potential discharge today. (Raysa Bernal) Review of Systems General Constitutional: Fatigue (Raysa Bernal) Respiratory Lungs: SOB, Cough, Sputum (Raysa Bernal) Cardiovascular Cardiac: GODOY (Raysa Bernal) Objective Data Data 10/20/16 10/21/16 19:00 07:00 Intake Total 480 ml Balance 480 ml Intake Oral 480 ml # Voids 5 # Bowel Movements 1 Vital Signs Date Time Temp Pulse Resp B/P Pulse Ox O2 Delivery O2 Flow Rate FiO2 10/20/16 16:44 94 10/20/16 16:02 98.5 78 18 144/64 96 10/20/16 12:04 97.9 89 18 144/66 96 (Raysa Bernal) -: 10/18/16 0639 10/18/16 0639 Tubes & Lines: Perma-Cath Tubes & Lines Comment right chest (Raysa Bernal) Physical Exam General Appearance: Well Developed, No Acute Distress, Comfortable, Malnourished ( Raysa Bernal) Neck Neck Exam: Neck Supple (Raysa Bernal) Pulmonary Resp Exam: Clear Bilaterally, Breath Sounds Equal (Raysa Bernal) Cardiology CV Exam: Regular, Normal Sinus Rhythm (Raysa Bernal) Gastrointestinal/Abdomen GI Exam: Soft, Non-Tender (Raysa Bernal) Musculoskeletal MS Exam: Joints Intact, Normal Tone (Raysa Bernal) Integumentary Skin Exam: Warm, Dry (Raysa Bernal) Extremeties Extremities Exam: Trace Edema (Raysa Bernal) Neurologic Neuro Exam: Alert, Awake, Oriented, Speech Clear (Raysa Bernal) Assessment/Plan Discussed Condition With: Patient Assessment Summary: Anemia of CKD, End Stage Renal Disease Problem List: (1) End stage renal disease Plan: MWF HD, seen during dialysis on a 2k, 350 BFR, goal 3L has permcath for HD no electrolyte concerns, continue current plan he has existing outpatient HD arrangements in [place] when discharged Avoid IVF. Avoid Gadolinium. high protein diet (2) HIV disease Plan: He is on HAART (3) Pneumonia Plan: Zithromax and Rocephin were stopped, likely sent home without Abx requirement chest CT benign ID has evaluated (4) Anemia Plan: Hemoglobin is stable, Epogen with dialysis per protocol. (5) Metabolic bone disease Plan: phosphorus level is acceptable Plan p (Raysa Beranl) Plan patient was seen and examined. Agree with above assessment and plan. Seen during dialysis. He is cleared for discharge from renal standpoint. (Red Hopper MD) Raysa Bernal Oct 21, 2016 11:21 Red Hopper MD Oct 22, 2016 07:56
[2016-10-21] MEDS: GENTAMICIN SULFATE (DIALYSIS USE ONLY) 20 MG/2 ML VIAL IV PRN (12:07)
[2016-10-21] MEDS: HEPARIN SODIUM - IV 10,000 UNITS/10 ML VIAL PRN (12:07)
[2016-10-21] MEDS: EPOETIN ALFA 10,000 UNITS/ML VIAL IV PRN (12:07)
--- NOTE | 2016-10-21 12:26 | HHI.PR ---
Subjective Remarks seen back from HD doing very well no chest pains, no shortness of breath Objective Vitals Vital Signs Date Time Temp Pulse Resp B/P Pulse Ox O2 Delivery O2 Flow Rate FiO2 10/20/16 16:44 94 10/20/16 16:02 98.5 78 18 144/64 96 I/O 10/20/16 10/20/16 10/20/16 10/21/16 10/21/16 10/21/16 07:00 15:00 23:00 07:00 15:00 23:00 Intake Total 480 ml Balance 480 ml Intake Oral 480 ml # Voids 1 5 # Bowel Movements 0 1 Result Diagram: 10/18/16 0639 10/18/16 0639 Imaging Last Impressions Chest X-Ray 10/20/16 0000 Signed Impressions: Service Date/Time: Thursday, October 20, 2016 10:52 - CONCLUSION: 1. Improving left basilar infiltrate and effusion. Cornell Haque MD Chest CT 10/20/16 0000 Signed Impressions: Service Date/Time: Thursday, October 20, 2016 15:49 - CONCLUSION: 1. Left pleural effusion and compressive atelectasis unchanged compared to previous study dated 08/22/16. 2. Small pericardial effusion which is new when compared to previous. 3. Old, healed rib fractures on the right. Cornell Haque MD Objective Remarks awake and alert, oriented x 3 anicteric lungs no rales, no wheezes, no rhonchi regular rhythm, no rub abdomen soft, nontender extremities no edema A/P Problem List: (1) Pleural effusion ICD Code: J90 Status: Acute (2) End stage renal disease ICD Code: N18.6 Status: Chronic (3) Asthma exacerbation ICD Code: J45.901 Status: Acute (4) HIV disease ICD Code: B20 Status: Chronic (5) Pneumonia ICD Code: J18.9 Status: Acute (6) Sepsis ICD Code: A41.9 Status: Acute Assessment and Plan Patient is a 45-year-old male with primary medical history of asthma, HIV, end-stage renal disease on hemodialysis who came in to the hospital with complaints of worsening asthma symptoms, shortness of breath, cough within the past 4 days. Patient states that due to the weather change in the cold air his symptoms gotten worse. States he doesn't have any inhalers at home and does not have a primary care provider. Patient states he has increased cough with some expectoration of clear sputum, chest tightness and wheezing that has bothered him. He denies having any fevers, chills, chest pain , palpitations, headaches, dizziness. Denies hemoptysis. Denies any pain or discomfort. Denies any nausea, vomiting, diarrhea. Denies abdominal pain, cramping, dysuria. Sepsis Pneumonia. Left pleural effusion (chronic). Acute bronchitis - improved With sepsis criteria on admission : Tachycardia 122, respiratory rate greater than 20, chest x-ray showed suspected consolidation at the left base and mild to moderate left pleural effusion. No leukocytosis S/P antibitoic course. Azithromycin 500 mg every 24 hours IV, ceftriaxone Patient is a non smoker- counselled . MDIs Blood cultures negative . UA. Lactic acid nl. sputun cx, Legionella and pneumococcal ag - negative S/P HD 10/16/17 with 4 l removed, breathing improved- HD today CXR woth pesistent consolidation with effusion- looks chronic Hold off on thoracentesis - SOB improved with HD. Appreciate ID - DC all antibiotics d/w Dr. Hartman- she wants to see patient today prior to any DC planning to determine if he needs a CT scan HIV - continue home meds Emtriva 200 Mg Q4D, Sustiva (Efavirenz) 600 Mg HS End-stage renal disease on HD. Nephrology ff. OP HD in [place]- [facility] HTN - improved - Amlodipine to 5 mg daily.- coreg bid DVT prop - patient up and ambulating Advise to ff up with a PCP locally- states he will set up with one DC today- ff up with HD center in [place] [id number]- Dr. Mckay- drafter castings Roxanne Ramos MD Oct 21, 2016 12:26
[2016-10-21] MEDS: TENOFOVIR DISOPROXIL FUMARATE 300 MG TAB PO SCH (13:09)
[2016-10-21] MEDS: amLODIPine BESYLATE 5 MG TAB PO SCH (13:10)
[2016-10-21] MEDS: SODIUM CHLORIDE 0.9% FLUSH 5 ML FLUSH FLUSH SCH (13:10)
[2016-10-21] MEDS: CARVEDILOL 12.5 MG TAB PO SCH (13:10)
[2016-10-21] MEDS: guaiFENesin E.R. 600 MG TAB PO SCH (13:10)
[2016-10-21] MEDS: BUDESONIDE-FORMOTEROL 80/4.5 MCG INHALER INH SCH (13:12)
--- NOTE | 2016-10-21 13:39 | HHI.DS ---
Discharge Summary Admission Date Oct 15, 2016 at 16:44 Discharge Date: Oct 21, 2016 Admitting Diagnosis Pulmonary Effusion/Tachycardia/Hypoxia/Asthma (1) End stage renal disease ICD Code: N18.6 Diagnosis: Principal (2) Pleural effusion ICD Code: J90 Diagnosis: Principal (3) Asthma exacerbation ICD Code: J45.901 Diagnosis: Secondary (4) HIV disease ICD Code: B20 Diagnosis: Secondary (5) Pneumonia ICD Code: J18.9 Diagnosis: Principal (6) Sepsis ICD Code: A41.9 Diagnosis: Principal Procedures hemodialysis Brief History - From Admission Patient is a 45-year-old male with primary medical history of asthma, HIV, end-stage renal disease on hemodialysis who came in to the hospital with complaints of worsening asthma symptoms, shortness of breath, cough within the past 4 days. Patient states that due to the weather change in the cold air his symptoms gotten worse. States he doesn't have any inhalers at home and does not have a primary care provider. Patient states he has increased cough with some expectoration of clear sputum, chest tightness and wheezing that has bothered him. He denies having any fevers, chills, chest pain , palpitations, headaches, dizziness. Denies hemoptysis. Denies any pain or discomfort. Denies any nausea, vomiting, diarrhea. Denies abdominal pain, cramping, dysuria. In the ED, patient was given Solu-Medrol IV, azithromycin IV, and nebulizer treatments. Patient is tachycardic in the 120s. With O2 sat 92-93% on room air. He states after he was given the treatment and Solu-Medrol his symptoms have improved. He is requesting if he can go home and take some steroids and antibiotics home instead. Discussed with patient result of the chest x-ray suspected consolidation at the left base and mild to moderate left pleural effusion. Patient states he is scheduled to go for hemodialysis tomorrow in [place]. He is being followed by operations management trainee Dr. Perez. Labs reviewed CBC with mild anemia RBC 3.69, hemoglobin 11, hematocrit 35.6. CMP showed mild hyponatremia at 135, BUN 29, creatinine 7.18, EGFR 10, Alk Phos 144, total protein 11.4, albumin 2.8. CBC/BMP: 10/18/16 0639 10/18/16 0639 Imaging Last Impressions Chest X-Ray 10/20/16 0000 Signed Impressions: Service Date/Time: Thursday, October 20, 2016 10:52 - CONCLUSION: 1. Improving left basilar infiltrate and effusion. Cornell Haque MD Chest CT 10/20/16 0000 Signed Impressions: Service Date/Time: Thursday, October 20, 2016 15:49 - CONCLUSION: 1. Left pleural effusion and compressive atelectasis unchanged compared to previous study dated 08/22/16. 2. Small pericardial effusion which is new when compared to previous. 3. Old, healed rib fractures on the right. Cornell Haque MD PE at Discharge awake and alert, oriented x 3 anicteric lungs no rales, no wheezes, no rhonchi regular rhythm, no rub abdomen soft, nontender extremities no edema Pt update on day of discharge awake and alert, up and ambulating no shortness of breath, no chest pains, no swelling Hospital Course Patient is a 45-year-old male with primary medical history of asthma, HIV, end-stage renal disease on hemodialysis who came in to the hospital with complaints of worsening asthma symptoms, shortness of breath, cough within the past 4 days. Patient states that due to the weather change in the cold air his symptoms gotten worse. States he doesn't have any inhalers at home and does not have a primary care provider. Patient states he has increased cough with some expectoration of clear sputum, chest tightness and wheezing that has bothered him. He denies having any fevers, chills, chest pain , palpitations, headaches, dizziness. Denies hemoptysis. Denies any pain or discomfort. Denies any nausea, vomiting, diarrhea. Denies abdominal pain, cramping, dysuria. Sepsis Pneumonia. Left pleural effusion (chronic). Acute bronchitis - improved With sepsis criteria on admission : Tachycardia 122, respiratory rate greater than 20, chest x-ray showed suspected consolidation at the left base and mild to moderate left pleural effusion. No leukocytosis S/P antibitoic course. Azithromycin 500 mg every 24 hours IV, ceftriaxone Patient is a non smoker- counselled . Hernan Blood cultures negative . UA. Lactic acid nl. sputun cx, Legionella and pneumococcal ag - negative S/P HD 10/16/17 with 4 l removed, breathing improved- HD today CXR woth pesistent consolidation with effusion- looks chronic Hold off on thoracentesis - SOB improved with HD. Appreciate ID - DC all antibiotics d/w Dr. Hartman- she wants to see patient today prior to any DC planning to determine if he needs a CT scan HIV - continue home meds Emtriva 200 Mg Q4D, Sustiva (Efavirenz) 600 Mg HS End-stage renal disease on HD. Nephrology ff. OP HD in [place]- [facility] Small pericardial effusion on CT- no rubs OP ff up with Nephrology to monitor HTN - improved - Amlodipine to 5 mg daily.- Coreg 12.5 mg bid DVT prop - patient up and ambulating Advise to ff up with a PCP locally- states he will set up with one DC today- ff up with HD center in [place] [id number]- [address] Mckay- operations management trainee Pt Condition on Discharge: Stable Discharge Disposition: Discharge Home Discharge Time: <= 30 minutes Discharge Instructions DIET: Follow Instructions for: Renal Failure Diet Speech Therapy-Diet Recommends: Regular Activities you can perform: Weight Bearing as Evon Follow up Referrals: Nephrology with [facility] PCP Follow-up - 10/26/16 with PCP New Medications: Amlodipine (Norvasc) 5 Mg Tab 5 MG PO DAILY HTN Days 30 TAB Budesonide-Formoterol Inh (Symbicort Inh) 80-4.5 Mcg/Act Aero 1 PUFF INH Q12HR HAD Days 30 INHALER Carvedilol (Coreg) 12.5 Mg Tab 12.5 MG PO Q12HR HTN Days 30 TAB Continued Medications: Efavirenz (Sustiva) 600 Mg Tab 600 MG PO HS Mgmt Viral Infection #30 Ref 0 TAB [id number] Mg (Emtriva) 200 Mg Cap 200 MG PO Q4D Mgmt Viral Infection #8 Ref 0 CAP Tenofovir disoproxil fumarate (Viread) 300 Mg Tab 300 MG PO Q7DAYS Mgmt Viral Infection #8 Ref 0 TAB Discontinued Medications: Benzonatate (Tessalon Perles) 100 Mg Cap 100 MG PO TID PRN cough #15 Roxanne Robles MD Oct 21, 2016 13:39
--- NOTE | 2016-11-08 13:25 | PQ ---
Physician Query Response Document PATIENT: YANDY PRICE : 1970 ADMIT DATE: 10/15/2016 4:44 PM DISCH DATE: 10/21/2016 4:55 PM RESPONDING PROVIDER #: Wilman QUERY TEXT: HIV Clarification and Associated Conditions HIV (Human immunodeficiency virus) is documented in the medical record. Please specify the type Such as: -- Symptomatic -- Asymptomatic -- Acquired immune deficiency syndrome [AIDS] -- FVEC-kiwlxqe-cgehotj complex [ARC] -- With current or previous HIV-related condition (please specify related condition) -- Exposure to HIV -- Inconclusive serologic evidence of HIV -- Other, please specify Also please include any associated conditions, if applicable. 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
== END 2016-10-21 16:55 | disposition home or self-care (01) | DRG 974 ==
LOC: NEPE 14:26 → NEDA 16:44 → N04B 19:29
PROVIDERS: ADMIT Internal Medicine; ATTEND Internal Medicine
PROC: 5A1D60Z (ICD-10-PCS; principal; 2016-10-16)
DX: A41.9 Sepsis, unspecified organism (principal); B20 Human immunodeficiency virus [HIV] disease; N18.6 End stage renal disease; J91.8 Pleural effusion in other conditions classified elsewhere; J18.9 Pneumonia, unspecified organism; E88.89 Other specified metabolic disorders; J45.901 Unspecified asthma with (acute) exacerbation; I12.0 Hypertensive chronic kidney disease with stage 5 chronic kidney disease or end stage renal disease; E87.1 Hypo-osmolality and hyponatremia; D63.1 Anemia in chronic kidney disease; Z99.2 Dependence on renal dialysis
CPT/HCPCS: 71010; 71020; 71250; 80048; 80053; 80069; 81001; 85025; 87040; 87086; 87449; 87804; 90935; 93005; 94150; 94640; 94664; 96365; 96374; 96375; J0456; J0696; J1580; J1644; J1940; J2930; J7030; J7050; Q4081

== ENCOUNTER 2018-01-09 13:19 | Emergency (ER) | payer MEDICARE, MEDICAID ==
[~2018-01-09] VITALS: Ht 177.8 cm; Wt 90.0 kg
[~2018-01-09 13:19] MED LIST changes: +AMLO5 PO; -BENZ100 PO; +CARV12.5 PO; +EMTR200 PO; +SYMB80AE INH; +TENO300 PO; -VIRE300T2 PO; -[UNRECOGNIZED DRUG - CODE] PO
[2018-01-09 13:23] VITALS: BP 132/62; PULSE 92; RESP 18; TEMP 98; O2SAT 98
--- NOTE | 2018-01-09 14:33 | PD ---
HPI Chief Complaint: General Weakness Time Seen by Provider: 14:29 Travel History International Travel<30 days: No Contact w/Intl Traveler<30days: No Traveled to known affect area: No History of Present Illness HPI Patient was released from senior living about a week ago, usually goes to [facility] dialysis center however the patient did not follow-up with any of those centers during the entire week that he was out of senior living. Now the patient comes in today requesting emergency dialysis. Patient also comes in complaining of diarrhea. His diarrhea has been continuous since he got out of senior living. The patient states that he believes he has C. difficile..... However the patient has not been around anyone with C. difficile, and has not taken any medications such as antibiotics recently to put him at risk for such. However with his HIV history the patient does have increased risk for denies any shortness of breath, No nondrug allergies Past medical history significant for fistula and permacath for dialysis, asthma history, hypertension history, dialysis usually Wednesday, HIV history, [facility] Past Medical History Asthma: Yes Autoimmune Disease: Yes Cancer: No Cardiovascular Problems: Yes Dialysis: Yes (M/W/F) Endocrine: No Gastrointestinal Disorders: No Genitourinary: Yes Hypertension: Yes Immune Disorder: Yes (HIV) Implanted Vascular Access Dvce: No Musculoskeletal: No Neurologic: No Psychiatric: No Reproductive: No Respiratory: Yes (ASTHMA) Renal Failure: Yes (ACUTE RENAL FAILURE) Past Surgical History Cardiac Surgery: Yes (lfa fistula,rtscv permacath) Other Surgery: No Social History Alcohol Use: Yes (occasional) Tobacco Use: No Substance Use: No Allergies-Medications (Allergen,Severity, Reaction): Coded Allergies: *MDRO Multi-Drug Resistant Organism (Verified Adverse Reaction, Unknown, ) 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 HEAD: Atraumatic. Normocephalic. EYES: Pupils equal and round. No scleral icterus. No injection or drainage. ENT: No nasal bleeding or discharge. Mucous membranes pink and moist. NECK: Trachea midline. No JVD. CARDIOVASCULAR: Regular rate and rhythm. RESPIRATORY: No accessory muscle use. Clear to auscultation. Breath sounds equal bilaterally. GASTROINTESTINAL: Abdomen soft, non-tender, nondistended. MUSCULOSKELETAL: Extremities without clubbing, cyanosis, or edema. No obvious deformities. NEUROLOGICAL: Awake and alert. No obvious cranial nerve deficits. Motor grossly within normal limits. Five out of 5 muscle strength in the arms and legs. Normal speech. PSYCHIATRIC: Appropriate mood and affect; insight and judgment normal. Data Data Last Documented VS Orders Orders Complete Blood Count With Diff (01/09/18 13:26) Comprehensive Metabolic Panel (01/09/18 13:26) Ed Discharge Order (01/09/18 18:56) Labs Laboratory Tests Test 01/09/18 14:45 White Blood Count 12.6 TH/MM3 Red Blood Count 3.51 MIL/MM3 Hemoglobin 10.7 GM/DL Hematocrit 33.3 % Mean Corpuscular Volume 95.0 FL Mean Corpuscular Hemoglobin 30.5 PG Mean Corpuscular Hemoglobin Concent 32.1 % Red Cell Distribution Width 18.0 % Platelet Count 163 TH/MM3 Mean Platelet Volume 9.1 FL Neutrophils (%) (Auto) 63.5 % Lymphocytes (%) (Auto) 24.6 % Monocytes (%) (Auto) 10.3 % Eosinophils (%) (Auto) 1.2 % Basophils (%) (Auto) 0.4 % Neutrophils # (Auto) 8.0 TH/MM3 Lymphocytes # (Auto) 3.1 TH/MM3 Monocytes # (Auto) 1.3 TH/MM3 Eosinophils # (Auto) 0.2 TH/MM3 Basophils # (Auto) 0.0 TH/MM3 CBC Comment AUTO DIFF Differential Comment AUTO DIFF CONFIRMED Platelet Estimate NORMAL Platelet Morphology Comment NORMAL Rouleau PRESENT Blood Urea Nitrogen 90 MG/DL Creatinine 19.29 MG/DL Random Glucose 76 MG/DL Total Protein 11.7 GM/DL Albumin 3.0 GM/DL Calcium Level 8.5 MG/DL Alkaline Phosphatase 221 U/L Aspartate Amino Transf (AST/SGOT) 13 U/L Alanine Aminotransferase (ALT/SGPT) 11 U/L Total Bilirubin 0.3 MG/DL Sodium Level 138 MEQ/L Potassium Level 5.2 MEQ/L Chloride Level 117 MEQ/L Carbon Dioxide Level 8.8 MEQ/L Anion Gap 12 MEQ/L Estimat Glomerular Filtration Rate 3 ML/MIN MDM Medical Decision Making Medical Screen Exam Complete: Yes Emergency Medical Condition: Yes Medical Record Reviewed: Yes Differential Diagnosis Diarrhea with HIV differential will include not only C. difficile, but CMV cryptosporidiosis microsporidiosis MAC.... Will obtain electrolytes to rule out electrolyte abnormality versus pancreatitis Diagnosis Primary Impression: diarrhea Patient Instructions: Acute Diarrhea (ED), General Instructions Additional Instructions: You are advised to continue your wednesday/wednesday/wednesday schedule. Today you did not meet emergency dialysis criteria. Disposition: 01 DISCHARGE HOME Condition: Stable Jhony Albert MD Jan 09, 2018 14:33
[2018-01-09 15:20] LABS: BASOPHIL % 0.4 % (0.0-2.0); EOSINOPHIL # 0.2 TH/MM3 (0-0.4); EOSINOPHIL % 1.2 % (0.0-4.0); HEMATOCRIT 33.3 % (39.0-51.0); HEMOGLOBIN 10.7 GM/DL (13.0-17.0); LYMPH % 24.6 % (9.0-44.0); LYMPHOCYTE # 3.1 TH/MM3 (1.0-4.8); MEAN CORPUSCULAR HEMOGLOBIN 30.5 PG (27.0-34.0); MEAN CORPUSCULAR HGB CONC 32.1 % (32.0-36.0); MEAN PLATELET VOLUME 9.1 FL (7.0-11.0); MONO % 10.3 % (0.0-8.0); MONOCYTE # 1.3 TH/MM3 (0-0.9); NEUT % 63.5 % (16.0-70.0); PLATELET COUNT 163 TH/MM3 (150-450); RED BLOOD COUNT 3.51 MIL/MM3 (4.50-5.90); WHITE BLOOD COUNT 12.6 TH/MM3 (4.0-11.0)
[2018-01-09 15:43] LABS: ALKALINE PHOSPHATASE 221 U/L (45-117); TOTAL BILIRUBIN ADULT 0.3 MG/DL (0.2-1.0); TOTAL PROTEIN 11.7 GM/DL (6.4-8.2)
[2018-01-09 15:48] LABS: ALT (GPT) 11 U/L (12-78); AST (GOT) 13 U/L (15-37); BICARBONATE 8.8 MEQ/L (21.0-32.0); BLOOD UREA NITROGEN 90 MG/DL (7-18); CALCIUM 8.5 MG/DL (8.5-10.1); CHLORIDE 117 MEQ/L (98-107); GLOMERULAR FILTRATION RATE 3 ML/MIN (>89); GLUCOSE,RANDOM 76 MG/DL (74-106); SODIUM (NA) 138 MEQ/L (136-145)
[2018-01-09 15:51] LABS: CREATININE 19.29 MG/DL (0.60-1.30)
[2018-01-09 16:26] LABS: ROULEAUX PRESENT (NORMAL)
[2018-01-09 16:39] VITALS: BP 126/66; PULSE 88; RESP 16; O2SAT 98
[2018-01-09] MEDS ORDERED: METR-1 PO (18:57)
== END 2018-01-09 20:13 | disposition home or self-care (01) ==
LOC: NEPE 13:19
DX: R19.7 Diarrhea, unspecified (principal); I10 Essential (primary) hypertension; N19 Unspecified kidney failure; J45.909 Unspecified asthma, uncomplicated; Z21 Asymptomatic human immunodeficiency virus [HIV] infection status; Z91.15 Patient's noncompliance with renal dialysis; Z99.2 Dependence on renal dialysis
CPT/HCPCS: 80053; 85025; 99283

== ENCOUNTER 2018-01-15 09:20 | Inpatient (IN) | payer MEDICARE, MEDICAID ==
[~2018-01-15] VITALS: Ht 177.8 cm; Wt 74.1 kg
[2018-01-15] VITALS (9 sets, daily range): BP systolic 147–172; BP diastolic 73–94; PULSE 91–126; RESP 16–22; TEMP 97.7–102.8; O2SAT 95–100
[~2018-01-15 09:20] MED LIST changes: +METR-1 PO
[2018-01-15] MEDS ORDERED: SODIUM CHLORIDE 0.9% FLUSH 10 ML FLUSH IV FLUSH PRN ×3 (09:45→13:15)
--- NOTE | 2018-01-15 09:54 | PD ---
HPI Chief Complaint: Altered Mental Status Time Seen by Provider: 09:40 Travel History International Travel<30 days: No Contact w/Intl Traveler<30days: No Traveled to known affect area: No History of Present Illness HPI 47-year-old male patient with history of HIV, end-stage renal disease on dialysis, has not received dialysis since beginning of December according to his girlfriend, has become more disoriented according to girlfriend. She states that he is not eating and drinking as well, but has not noted any vomiting, and he otherwise has not made any complaints. He apparently has not been set up for any dialysis outside. Modifying Factors: None Associated Signs & Symptoms: Supposed to be on dialysis, no dialysis for several weeks, altered mental status Risk Factors: History of dialysis, HIV PFSH Past Medical History Asthma: Yes Autoimmune Disease: Yes Cancer: No Cardiovascular Problems: Yes Dialysis: Yes (M/W/F) Endocrine: No Gastrointestinal Disorders: No Genitourinary: Yes Hypertension: Yes Immune Disorder: Yes (HIV) Implanted Vascular Access Dvce: Yes Musculoskeletal: No Neurologic: No Psychiatric: No Reproductive: No Respiratory: Yes (ASTHMA) Renal Failure: Yes (ACUTE RENAL FAILURE) Past Surgical History Cardiac Surgery: Yes (lfa fistula,rtscv permacath) Other Surgery: Yes Social History Alcohol Use: Yes (occasional) Tobacco Use: No Substance Use: No Allergies-Medications (Allergen,Severity, Reaction): Coded Allergies: *MDRO Multi-Drug Resistant Organism (Verified Adverse Reaction, Unknown, ) 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 Reported Meds & Prescriptions Reported Meds & Active Scripts Active Reported Flagyl (Metronidazole) 500 Mg Tab 500 Mg PO BID Review of Systems ROS Limitations: Altered Mental Status Physical Exam Narrative GENERAL: Well-developed middle-age -[place] male patient currently in moderate distress. Awake but not oriented. SKIN: Focused skin assessment warm/dry. HEAD: Atraumatic. Normocephalic. EYES: Pupils equal and round. No scleral icterus. No injection or drainage. ENT: No nasal bleeding or discharge. Mucous membranes pink and moist. NECK: Trachea midline. No JVD. CARDIOVASCULAR: Regular rate and rhythm. No murmur appreciated. RESPIRATORY: No accessory muscle use. Clear to auscultation. Breath sounds equal bilaterally. GASTROINTESTINAL: Abdomen soft, non-tender, nondistended. Hepatic and splenic margins not palpable. MUSCULOSKELETAL: No obvious deformities. No clubbing. No cyanosis. No edema. NEUROLOGICAL: Awake, not oriented, not following directions. Face appears symmetrical. Not following commands and unable to assess further. PSYCHIATRIC: Awake, not oriented, no insight or judgment into current issues. Data Data Last Documented VS Vital Signs Date Time Temp Pulse Resp B/P (MAP) Pulse Ox O2 Delivery O2 Flow Rate FiO2 01/15/18 12:09 98.1 91 16 162/80 (107) 99 Room Air Orders Orders Electrocardiogram (01/15/18 09:40) Ammonia (01/15/18 09:40) Complete Blood Count With Diff (01/15/18 09:40) Comprehensive Metabolic Panel (01/15/18 09:40) Prothrombin Time / Inr (Pt) (01/15/18 09:40) Act Partial Throm Time (Ptt) (01/15/18 09:40) Blood Glucose (01/15/18 09:40) Ecg Monitoring (01/15/18 09:40) Iv Access Insert/Monitor (01/15/18 09:40) Oximetry (01/15/18 09:40) Sodium Chloride 0.9% Flush (Ns Flush) (01/15/18 09:45) Chest, Single Ap (01/15/18 09:42) Ct Brain W/O Iv Contrast(Rout) (01/15/18 09:42) Blood Flow Rate (01/15/18 11:28) Dialysate Flow Rate (01/15/18 11:28) Dialyzer (01/15/18 11:28) Concentrate (01/15/18 11:28) Acid Concentrate (01/15/18 11:28) Length Of Dialysis (01/15/18 11:28) Frequency Of Dialysis (01/15/18 11:28) Dialysis Obtain (01/15/18:28) Needle Size (01/15/18:28) Dialysis Schedule (01/15/18:28) Resp Oxygen Ponce C Titrat 1-4 L (01/15/18 ) Dialysis Weight (01/15/18 11:28) ^ Obtain As Needed (01/15/18 11:28) Sodium Chlor 0.9% 1000 Ml Inj (Ns 1000 M (01/15/18 11:28) Heparin Inj (Heparin Inj) (01/15/18 11:30) Sodium Chlor 0.9% 1000 Ml Inj (Ns 1000 M (01/15/18 11:28) Sodium Chlor 0.9% 1000 Ml Inj (Ns 1000 M (01/15/18 11:28) Mannitol Inj (Mannitol Inj) (01/15/18 11:30) Albumin 25% Inj (Albumin 25% Inj) (01/15/18 11:30) Sodium Chloride 0.9% Flush (Ns Flush) (01/15/18 11:30) Heparin Inj (Heparin Inj) (01/15/18 11:30) Gentamicin Inj (Gentamicin Inj) (01/15/18 11:30) Acetaminophen (Tylenol) (01/15/18 11:30) Diphenhydramine (Benadryl) (01/15/18 11:30) Nitroglycerin Sl (Nitrostat Sl) (01/15/18 11:30) Clonidine (Catapres) (01/15/18 11:30) Epoetin Mati Inj (Epogen Inj) (01/15/18 11:30) Gelatin 12 Mm/7 Mm Top (Gelfoam 12 Mm/7 (01/15/18 11:30) Ondansetron Odt (Zofran Odt) (01/15/18 11:30) Admit Order (Ed Use Only) (01/15/18 12:21) Labs Laboratory Tests Test 01/15/18 09:40 01/15/18 09:45 Ammonia 48 MCMOL/L White Blood Count 11.1 TH/MM3 Red Blood Count 3.51 MIL/MM3 Hemoglobin 10.4 GM/DL Hematocrit 32.4 % Mean Corpuscular Volume 92.5 FL Mean Corpuscular Hemoglobin 29.7 PG Mean Corpuscular Hemoglobin Concent 32.1 % Red Cell Distribution Width 18.3 % Platelet Count 151 TH/MM3 Mean Platelet Volume 9.0 FL Neutrophils (%) (Auto) 71.7 % Lymphocytes (%) (Auto) 16.5 % Monocytes (%) (Auto) 11.0 % Eosinophils (%) (Auto) 0.5 % Basophils (%) (Auto) 0.3 % Neutrophils # (Auto) 8.0 TH/MM3 Lymphocytes # (Auto) 1.8 TH/MM3 Monocytes # (Auto) 1.2 TH/MM3 Eosinophils # (Auto) 0.1 TH/MM3 Basophils # (Auto) 0.0 TH/MM3 CBC Comment DIFF FINAL Differential Comment Prothrombin Time 11.2 SEC Prothromb Time International Ratio 1.1 RATIO Activated Partial Thromboplast Time 39.1 SEC Blood Urea Nitrogen 142 MG/DL Creatinine 24.00 MG/DL Random Glucose 82 MG/DL Total Protein 11.8 GM/DL Albumin 3.0 GM/DL Calcium Level 9.0 MG/DL Alkaline Phosphatase 239 U/L Aspartate Amino Transf (AST/SGOT) 19 U/L Alanine Aminotransferase (ALT/SGPT) 15 U/L Total Bilirubin 0.4 MG/DL Sodium Level 138 MEQ/L Potassium Level 6.4 MEQ/L Chloride Level 116 MEQ/L Carbon Dioxide Level 6.2 MEQ/L Anion Gap 16 MEQ/L Estimat Glomerular Filtration Rate 3 ML/MIN MDM Medical Decision Making Medical Screen Exam Complete: Yes Emergency Medical Condition: Yes Medical Record Reviewed: Yes Interpretation(s) Laboratory Tests Test 01/15/18 09:40 01/15/18 09:45 Ammonia 48 MCMOL/L (11-32) White Blood Count 11.1 TH/MM3 (4.0-11.0) Red Blood Count 3.51 MIL/MM3 (4.50-5.90) Hemoglobin 10.4 GM/DL (13.0-17.0) Hematocrit 32.4 % (39.0-51.0) Red Cell Distribution Width 18.3 % (11.6-17.2) Neutrophils (%) (Auto) 71.7 % (16.0-70.0) Monocytes (%) (Auto) 11.0 % (0.0-8.0) Neutrophils # (Auto) 8.0 TH/MM3 (1.8-7.7) Monocytes # (Auto) 1.2 TH/MM3 (0-0.9) Activated Partial Thromboplast Time 39.1 SEC (24.3-30.1) Blood Urea Nitrogen 142 MG/DL (7-18) Creatinine 24.00 MG/DL (0.60-1.30) Total Protein 11.8 GM/DL (6.4-8.2) Albumin 3.0 GM/DL (3.4-5.0) Alkaline Phosphatase 239 U/L (45-117) Potassium Level 6.4 MEQ/L (3.5-5.1) Chloride Level 116 MEQ/L (98-107) Carbon Dioxide Level 6.2 MEQ/L (21.0-32.0) Anion Gap 16 MEQ/L (5-15) Estimat Glomerular Filtration Rate 3 ML/MIN (>89) Last [address] 01/15/18 0942 Signed Impressions: CONCLUSION: 1. No acute intracranial abnormality is identified. 2. Mucoperiosteal thickening versus air-fluid level in the left maxillary sinu s. Chest X-Ray 01/15/18 0942 Signed Impressions: CONCLUSION: 1. Mild interstitial opacities in lower lung zones could represent mild inters titial pulmonary edema. There is a small left pleural effusion. 2. Cardiac silhouette size remains mildly enlarged. Differential Diagnosis Altered mental status: Worsening renal failure versus electrolyte abnormalities versus dehydration versus sepsis versus acute intracranial processes Narrative Course Lab work shows significant elevation of BUN and creatinine, acute on chronic renal failure, and patient likely needs dialysis. Case was discussed with Dr. Hopper who saw the patient in the ER and plans on dialyzing him. He is quite disoriented as well and at this point, my plan would be to admit the patient for further treatment. Case has been discussed with Dr. Perez for admission. Diagnosis Primary Impression: Acute renal failure Additional Impressions: Acute metabolic encephalopathy Hyperkalemia Admitting Information Admitting Physician Requests: it Aaron Farr MD Jan 15, 2018 09:54
[2018-01-15 10:10] LABS: BASOPHIL % 0.3 % (0.0-2.0); EOSINOPHIL # 0.1 TH/MM3 (0-0.4); EOSINOPHIL % 0.5 % (0.0-4.0); HEMATOCRIT 32.4 % (39.0-51.0); HEMOGLOBIN 10.4 GM/DL (13.0-17.0); LYMPH % 16.5 % (9.0-44.0); LYMPHOCYTE # 1.8 TH/MM3 (1.0-4.8); MEAN CELL VOLUME 92.5 FL (80.0-100.0); MEAN CORPUSCULAR HEMOGLOBIN 29.7 PG (27.0-34.0); MEAN CORPUSCULAR HGB CONC 32.1 % (32.0-36.0); MONOCYTE # 1.2 TH/MM3 (0-0.9); NEUT % 71.7 % (16.0-70.0); PLATELET COUNT 151 TH/MM3 (150-450); RED BLOOD COUNT 3.51 MIL/MM3 (4.50-5.90); RED CELL DISTRIBUTION WIDTH 18.3 % (11.6-17.2); WHITE BLOOD COUNT 11.1 TH/MM3 (4.0-11.0)
[2018-01-15 10:19] LABS: INTERNATIONAL NORMALIZED RATIO 1.1 RATIO; PROTHROMBIN TIME - PATIENT 11.2 SEC (9.8-11.6)
[2018-01-15 10:41] LABS: ALKALINE PHOSPHATASE 239 U/L (45-117); ALT (GPT) 15 U/L (12-78); AST (GOT) 19 U/L (15-37); BICARBONATE 6.2 MEQ/L (21.0-32.0); BLOOD UREA NITROGEN 142 MG/DL (7-18); CHLORIDE 116 MEQ/L (98-107); GLOMERULAR FILTRATION RATE 3 ML/MIN (>89); GLUCOSE,RANDOM 82 MG/DL (74-106); SODIUM (NA) 138 MEQ/L (136-145); TOTAL BILIRUBIN ADULT 0.4 MG/DL (0.2-1.0); TOTAL PROTEIN 11.8 GM/DL (6.4-8.2)
--- NOTE | 2018-01-15 10:58 | RADRPT ---
EXAM DATE: 01/15/2018 10:47 AM EDT AGE/SEX: 47 years / Male INDICATIONS: Palpitations. CLINICAL DATA: This is the patient's initial encounter. Patient reports that signs and symptoms have been present for 1 day and indicates a pain score of Nonresponsive. MEDICAL/SURGICAL HISTORY: . Cardiovascular disease. Hypertension. HIV. None. COMPARISON: [facility] [place], CT THORAX W/O CONTRAST, 10/20/2016. [facility] [place], CHEST SINGLE AP, 10/15/2016. . FINDINGS: Portable AP view of the chest demonstrates stable mild enlargement of the cardiac silhouette. Right I J line is in place with distal tip in the SVC. Slight blunting of the left costophrenic sulcus is pre sent. There are mild interstitial opacities in the lower lung zones bilaterally. No pneumothorax is i dentified. Bones demonstrate no acute finding. CONCLUSION: 1. Mild interstitial opacities in lower lung zones could represent mild interstitial pulmonary edema . There is a small left pleural effusion. 2. Cardiac silhouette size remains mildly enlarged. Electronically signed by: Parminder Naranjo MD 01/15/2018 10:56 AM EDT
[2018-01-15] MEDS ORDERED: SODIUM CHLOR 0.9% 1000 ML INJ 1,000 ML IV PRN (11:28)
[2018-01-15] MEDS ORDERED: SODIUM CHLOR 0.9% 1000 ML INJ 1,000 ML OTHER PRN ×2 (11:28)
[2018-01-15] MEDS ORDERED: MANNITOL 12.5 GM/50 ML VIAL IV PRN (11:30)
[2018-01-15] MEDS ORDERED: ONDANSETRON ODT 4 MG TAB PO PRN (11:30)
[2018-01-15] MEDS ORDERED: ALBUMIN 25% INJ 100 ML IV PRN (11:30)
[2018-01-15] MEDS ORDERED: NITROGLYCERIN 0.4 MG SL 25 TABS/BTL SL PRN (11:30)
[2018-01-15] MEDS ORDERED: cloNIDine HCL 0.1 MG TAB PO PRN ×2 (11:30→13:30)
[2018-01-15] MEDS ORDERED: ACETAMINOPHEN 325 MG TAB PO PRN (11:30)
[2018-01-15] MEDS ORDERED: HEPARIN SODIUM - IV 10,000 UNITS/10 ML VIAL IV FLUSH PRN (11:30)
[2018-01-15] MEDS ORDERED: diphenhydrAMINE HCL 25 MG CAP PO PRN (11:30)
[2018-01-15] MEDS ORDERED: GELATIN 12 MM/7 MM FOAM TOP PRN (11:30)
--- NOTE | 2018-01-15 12:04 | RADRPT ---
EXAM DATE: 01/15/2018 11:47 AM EDT AGE/SEX: 47 years / Male INDICATIONS: Altered mental status. CLINICAL DATA: This is the patient's initial encounter. Patient reports that signs and symptoms have been present for 1 day and indicates a pain score of Nonresponsive. MEDICAL/SURGICAL HISTORY: HIV. Hypertension. None. RADIATION DOSE: 56.35 CTDI (mGy) COMPARISON: No prior exams available for comparison. TECHNIQUE: CT of the head without contrast. Using automated exposure control and adjustment of the mA and/or kV according to patient size, radiation dose was kept as low as reasonably achievable to ob tain optimal diagnostic quality images. FINDINGS: Cerebrum: The ventricles are normal. No midline shift, mass lesion, hemorrhage or acute infarction. No extraaxial fluid collections are seen. Posterior Fossa: The cerebellum and brainstem demonstrate no acute abnormality. The 4th ventricle is midline. The cerebellopontine angle is within normal limits. Extracranial: There is mucoperiosteal thickening versus air-fluid level in the visualized left maxil richard sinus. The remaining visualized sinuses are clear. Skull: The calvaria is intact. No skull fracture. CONCLUSION: 1. No acute intracranial abnormality is identified. 2. Mucoperiosteal thickening versus air-fluid level in the left maxillary sinus. Electronically signed by: Parminder Naranjo MD 01/15/2018 12:02 PM EDT
[2018-01-15] MEDS ORDERED: METR-1 PO (12:13)
--- NOTE | 2018-01-15 12:59 | HHI.HP ---
[facility] Primary Care Physician Unknown Admission Diagnosis Altered mental status/acute on chronic renal failure/uremia Diagnoses: Chief Complaint: Altered mental status Travel History International Travel<30 Days: No Contact w/Intl Traveler <30 Da: No Traveled to Known Affected Are: No History of Present Illness The history is obtained from the chart and review of the medical records. 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 According to his girlfriend he has not received dialysis since the beginning of December. He has become more confused and disoriented per the girlfriend. Patient has not been eating or drinking well. It appears that he used to get dialysis in [place] at some point. It is unclear why he has not been receiving dialysis here. He presented to the emergency room here about 10 days ago and was referred to the outpatient dialysis center. However it does not appear that he has been getting dialysis. He has significant uremia on presentation. The patient was seen by nephrology and emergently taken to dialysis. He is seen in the dialysis unit. He is lethargic and not able to contribute to the history. Review of Systems ROS Limitations: Clinical Condition, Altered Mental Status Unable to obtain accurate review of systems due to the patient's current condition. Past Family Social History Past Medical History HIV End-stage renal disease on hemodialysis. Significant issues with compliance. Past Surgical History Unable to obtain due to the patient's current condition. Allergies: Coded Allergies: *MDRO Multi-Drug Resistant Organism (Verified Adverse Reaction, Unknown, ) 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 Family History Unable to obtain due to the patient's current condition Social History Unable to obtain due to the patient's current condition Physical Exam Vital Signs Vital Signs Date Time Temp Pulse Resp B/P (MAP) Pulse Ox O2 Delivery O2 Flow Rate FiO2 01/15/18 12:09 98.1 91 16 162/80 (107) 99 Room Air 01/15/18 10:30 97.8 94 16 172/94 (120) 96 Room Air 01/15/18 09:43 18 100 Room Air 01/15/18 09:26 97.7 98 16 169/88 (115) 100 01/15/18 09:26 89 18 100 Room Air Physical Exam GENERAL: Patient appears older than stated age. He is lethargic HEAD: Atraumatic. Normocephalic. No temporal or scalp tenderness. EYES: Pupils equal round and reactive. NECK: Trachea midline. No JVD or lymphadenopathy. CARDIOVASCULAR: Regular rate and rhythm without murmurs, gallops, or rubs. RESPIRATORY: Clear to auscultation. Breath sounds equal bilaterally. No wheezes , rales, or rhonchi. GASTROINTESTINAL: Abdomen soft, non-tender, nondistended. MUSCULOSKELETAL: Extremities without clubbing, cyanosis, or edema. NEUROLOGICAL: Lethargic. Laboratory Laboratory Tests Test 01/15/18 09:40 01/15/18 09:45 Ammonia 48 White Blood Count 11.1 Red Blood Count 3.51 Hemoglobin 10.4 Hematocrit 32.4 Mean Corpuscular Volume 92.5 Mean Corpuscular Hemoglobin 29.7 Mean Corpuscular Hemoglobin Concent 32.1 Red Cell Distribution Width 18.3 Platelet Count 151 Mean Platelet Volume 9.0 Neutrophils (%) (Auto) 71.7 Lymphocytes (%) (Auto) 16.5 Monocytes (%) (Auto) 11.0 Eosinophils (%) (Auto) 0.5 Basophils (%) (Auto) 0.3 Neutrophils # (Auto) 8.0 Lymphocytes # (Auto) 1.8 Monocytes # (Auto) 1.2 Eosinophils # (Auto) 0.1 Basophils # (Auto) 0.0 CBC Comment DIFF FINAL Differential Comment Prothrombin Time 11.2 Prothromb Time International Ratio 1.1 Activated Partial Thromboplast Time 39.1 Blood Urea Nitrogen 142 Creatinine 24.00 Random Glucose 82 Total Protein 11.8 Albumin 3.0 Calcium Level 9.0 Alkaline Phosphatase 239 Aspartate Amino Transf (AST/SGOT) 19 Alanine Aminotransferase (ALT/SGPT) 15 Total Bilirubin 0.4 Sodium Level 138 Potassium Level 6.4 Chloride Level 116 Carbon Dioxide Level 6.2 Anion Gap 16 Estimat Glomerular Filtration Rate 3 Result Diagram: 01/15/18 0945 01/15/18 0945 Imaging Last Impressions Head CT 01/15/18 0942 Signed Impressions: CONCLUSION: 1. No acute intracranial abnormality is identified. 2. Mucoperiosteal thickening versus air-fluid level in the left maxillary sinu s. Chest X-Ray 01/15/18 0976 Signed Impressions: CONCLUSION: 1. Mild interstitial opacities in lower lung zones could represent mild inters titial pulmonary edema. There is a small left pleural effusion. 2. Cardiac silhouette size remains mildly enlarged. Caprini VTE Risk Assessment Caprini VTE Risk Assessment: Mod/High Risk (score >= 2) Caprini Risk Assessment Model Point Value = 1 Point Value = 2 Point Value = 3 Point Value = 5 Age 41-60 Minor surgery BMI > 25 kg/m2 Swollen legs Varicose veins or History of unexplained or recurrent spontaneous Oral contraceptives or hormone replacement Sepsis (< 1 month) Serious lung disease, including pneumonia (< 1 month) Abnormal pulmonary function Acute myocardial infarction Congestive heart failure (< 1 month) History of inflammatory bowel disease Medical patient at bed rest Age 61-74 Arthroscopic surgery Major open surgery (> 45 min) Laparoscopic surgery (> 45 min) Malignancy Confined to bed (> 72 hours) Immobilizing plaster cast Central venous access Age >= 75 History of VTE Family history of VTE Factor V Leiden Prothrombin [id number] Lupus anticoagulant Anticardiolipin antibodies Elevated serum homocysteine Heparin-induced thrombocytopenia Other congenital or acquired thrombophilia Stroke (< 1 month) Elective arthroplasty Hip, pelvis, or leg fracture Acute spinal cord injury (< 1 month) Prophylaxis Regimen Total Risk Factor Score Risk Level Prophylaxis Regimen 0-1 Low Early ambulation 2 Moderate Order ONE of the following: *Sequential Compression Device (SCD) *Heparin 5000 units SQ BID 3-4 Higher Order ONE of the following medications: *Heparin 5000 units SQ TID *Enoxaparin/Lovenox 40 mg SQ daily (WT < 150 kg, CrCl > 30 mL/min) *Enoxaparin/Lovenox 30 mg SQ daily (WT < 150 kg, CrCl > 10-29 mL/min) *Enoxaparin/Lovenox 30 mg SQ BID (WT < 150 kg, CrCl > 30 mL/min) AND/OR *Sequential Compression Device (SCD) 5 or more Highest Order ONE of the following medications: *Heparin 5000 units SQ TID (Preferred with Epidurals) *Enoxaparin/Lovenox 40 mg SQ daily (WT < 150 kg, CrCl > 30 mL/min) *Enoxaparin/Lovenox 30 mg SQ daily (WT < 150 kg, CrCl > 10-29 mL/min) *Enoxaparin/Lovenox 30 mg SQ BID (WT < 150 kg, CrCl > 30 mL/min) AND *Sequential Compression Device (SCD) Assessment and Plan Problem List: (1) End-stage renal disease on hemodialysis ICD Code: N18.6 - End stage renal disease; Z99.2 - Dependence on renal dialysis Plan: Noncompliance with hemodialysis. Last hemodialysis about 2 weeks ago. Patient presented with acute encephalopathy. Appreciate nephrology following. Emergent dialysis today. Further plans per nephrology. Case management consult to assist with arranging outpatient dialysis. (2) Acute metabolic encephalopathy ICD Code: G93.41 - Metabolic encephalopathy Plan: Secondary to above, severe uremia. Head CT unremarkable. Neuro checks. Follow for recovery. (3) Hyperkalemia ICD Code: E87.5 - Hyperkalemia Plan: Patient getting emergent hemodialysis as above. Follow BMP (4) HIV disease ICD Code: B20 - Human immunodeficiency virus [HIV] disease Status: Chronic Plan: Based on the last hospital admission, he is reportedly on HAART- tenofovir/emtriva/sustiva outpatient. Discussed Condition With Dr. Vann, ED physician Physician Certification 2 Midnight Certification Type: Admission for Inpatient Services Order for Inpatient Services The services are ordered in accordance with Medicare regulations or non- Medicare payer requirements, as applicable. In the case of services not specified as inpatient-only, they are appropriately provided as inpatient services in accordance with the 2-midnight benchmark. Estimated LOS (days): 3 days is the estimated time the patient will need to remain in the hospital, assuming treatment plan goals are met and no additional complications. Post-Hospital Plan: Home Dre Perez MD Jan 15, 2018 12:59
[2018-01-15] MEDS ORDERED: SENNOSIDES 8.6 MG TAB PO PRN (13:15)
[2018-01-15] MEDS ORDERED: LACTULOSE SYRUP 20 GM/30 ML CUP PO PRN (13:15)
[2018-01-15] MEDS ORDERED: BISACODYL 10 MG SUPP RECTAL PRN (13:15)
[2018-01-15] MEDS ORDERED: MAGNESIUM HYDROXIDE SUSP 30 ML CUP PO PRN (13:15)
[2018-01-15] MEDS ORDERED: NALOXONE HCL 0.4 MG/ML AMP IV PUSH PRN (13:15)
[2018-01-15] MEDS ORDERED: hydrALAZINE HCL 20 MG/ML VIAL IV PUSH PRN (13:30)
[2018-01-15] MEDS: GENTAMICIN SULFATE 20 MG/2 ML VIAL OTHER PRN (14:10)
[2018-01-15] MEDS: EPOETIN ALFA 10,000 UNITS/ML VIAL IV PUSH PRN (14:10)
[2018-01-15] MEDS: HEPARIN SODIUM - IV 10,000 UNITS/10 ML VIAL PRN (14:10)
--- NOTE | 2018-01-15 15:32 | PD.CONS ---
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 He apparently was in half-way for selling crack cocaine and driving under suspended license. Patient's last dialysis was on 12/31/17. He was released from half-way on 01/01/18. It appears that he has not dialysis since 12/31/17 , previously used to have dialysis in [place]. It should be noted that he was initiated on HD in this facility, and discharged to continue dialysis at [facility] about 2 years ago. However, by his own choice, the patient decided to have dialysis at [place] although I believe he lived here. It is unclear why he did not go back to his usual dialysis unit after release from half-way. History was obtained from his girlfriend. 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 Active Ordered Medications Current Medications Medications (Trade) Dose Ordered Sig/Karl Route Start Time Stop Time Status Last Admin (NS Flush) 2 ml UNSCH PRN IV FLUSH 01/15/18 09:45 Sodium Chloride 1,000 ml @ 0 mls/hr Q0M PRN OTHER 01/15/18 11:28 01/15/18 14:11 (Heparin Inj) 8,000 units UNSCH PRN IV FLUSH 01/15/18 11:30 Sodium Chloride 1,000 ml @ 200 mls/hr Q5H PRN IV 01/15/18 11:28 Sodium Chloride 1,000 ml @ 0 mls/hr Q0M PRN OTHER 01/15/18 11:28 (Mannitol Inj) 12.5 gm UNSCH PRN IV 01/15/18 11:30 Albumin Human 100 ml @ 60 mls/hr UNSCH PRN IV 01/15/18 11:30 (NS Flush) 5 ml UNSCH PRN IV FLUSH 01/15/18 11:30 (Heparin Inj) UNSCH PRN .XX 01/15/18 11:30 01/15/18 14:10 (Gentamicin Inj) 20 mg UNSCH PRN OTHER 01/15/18 11:30 01/15/18 14:10 (Zofran Odt) 4 mg UNSCH PRN PO 01/15/18 11:30 (Tylenol) 650 mg UNSCH PRN PO 01/15/18 11:30 (Benadryl) 25 mg UNSCH PRN PO 01/15/18 11:30 (Nitrostat Sl) 0.4 mg UNSCH PRN SL 01/15/18 11:30 (Catapres) 0.1 mg UNSCH PRN PO 01/15/18 11:30 (Epogen Inj) 10,000 units UNSCH PRN IV PUSH 01/15/18 11:30 01/15/18 14:10 (Gelfoam 12 Mm/7 Mm Top) 1 foam UNSCH PRN TOP 01/15/18 11:30 (NS Flush) 2 ml UNSCH PRN IV FLUSH 01/15/18 13:15 (NS Flush) 2 ml BID IV FLUSH 01/15/18 21:00 (Narcan Inj) 0.4 mg UNSCH PRN IV PUSH 01/15/18 13:15 (Milk Of Magnesia Liq) 30 ml Q12H PRN PO 01/15/18 13:15 (Senokot) 17.2 mg Q12H PRN PO 01/15/18 13:15 (Dulcolax Supp) 10 mg DAILY PRN RECTAL 01/15/18 13:15 (Lactulose Liq) 30 ml DAILY PRN PO 01/15/18 13:15 (Catapres) 0.1 mg Q6H PRN PO 01/15/18 13:30 Family History non contributory Social History Girlfriend reports that he does not abuse cocaine although he sells it. No tobacco or ETOH. Physical Exam Vital Signs Vital Signs Date Time Temp Pulse Resp B/P (MAP) Pulse Ox O2 Delivery O2 Flow Rate FiO2 01/15/18 12:09 98.1 91 16 162/80 (107) 99 Room Air 01/15/18 10:30 97.8 94 16 172/94 (120) 96 Room Air 01/15/18 09:43 18 100 Room Air 01/15/18 09:26 97.7 98 16 169/88 (115) 100 01/15/18 09:26 89 18 100 Room Air Physical Exam GENERAL: poorly responsive, confused, disoriented. SKIN: Warm and dry. HEAD: Normocephalic. EYES: No scleral icterus. No injection or drainage. NECK: Supple, trachea midline. No JVD or lymphadenopathy. CARDIOVASCULAR: Regular rate and rhythm without murmurs, gallops, or rubs. RESPIRATORY: Breath sounds equal bilaterally. No accessory muscle use. GASTROINTESTINAL: Abdomen soft, non-tender, nondistended. MUSCULOSKELETAL: No cyanosis, or edema. BACK: Nontender without obvious deformity. No CVA tenderness. Laboratory Laboratory Tests Test 01/15/18 09:40 01/15/18 09:45 Ammonia 48 White Blood Count 11.1 Red Blood Count 3.51 Hemoglobin 10.4 Hematocrit 32.4 Mean Corpuscular Volume 92.5 Mean Corpuscular Hemoglobin 29.7 Mean Corpuscular Hemoglobin Concent 32.1 Red Cell Distribution Width 18.3 Platelet Count 151 Mean Platelet Volume 9.0 Neutrophils (%) (Auto) 71.7 Lymphocytes (%) (Auto) 16.5 Monocytes (%) (Auto) 11.0 Eosinophils (%) (Auto) 0.5 Basophils (%) (Auto) 0.3 Neutrophils # (Auto) 8.0 Lymphocytes # (Auto) 1.8 Monocytes # (Auto) 1.2 Eosinophils # (Auto) 0.1 Basophils # (Auto) 0.0 CBC Comment DIFF FINAL Differential Comment Prothrombin Time 11.2 Prothromb Time International Ratio 1.1 Activated Partial Thromboplast Time 39.1 Blood Urea Nitrogen 142 Creatinine 24.00 Random Glucose 82 Total Protein 11.8 Albumin 3.0 Calcium Level 9.0 Alkaline Phosphatase 239 Aspartate Amino Transf (AST/SGOT) 19 Alanine Aminotransferase (ALT/SGPT) 15 Total Bilirubin 0.4 Sodium Level 138 Potassium Level 6.4 Chloride Level 116 Carbon Dioxide Level 6.2 Anion Gap 16 Estimat Glomerular Filtration Rate 3 Result Diagram: 01/15/1845 01/15/18944 Assessment and Plan Problem List: (1) End stage renal disease ICD Codes: N18.6 - End stage renal disease Status: Acute Plan: patient presents with uremia, uremic encephalopathy, hyperkalemia, fluid overload after missing dialysis treatments for 2 weeks. He will be emergently dialyzed today. Monitor his progress. May need dialysis again tomorrow. greenhouse manager to assist in finding outpatient dialysis unit. (2) HTN (hypertension) ICD Codes: I10 - Essential (primary) hypertension Status: Acute Plan: monitor after dialysis and fluid removal. (3) HIV disease ICD Codes: B20 - Human immunodeficiency virus [HIV] disease Status: Chronic Plan: it is unclear if he was on any antiretrovirals. Also unclear is status of the disease. (4) Hyperkalemia ICD Codes: E87.5 - Hyperkalemia Plan: Due to not having had dialysis for 2 weeks. Repeat labs after dialysis. Needs dietary potassium restriction when he is able to eat. If he is NPO, consider D10 at 20 ml/hour. (5) Anemia ICD Codes: D64.9 - Anemia, unspecified Status: Acute Plan: Epogen with dialysis. (6) Acute metabolic encephalopathy ICD Codes: G93.41 - Metabolic encephalopathy Plan: Due to uremia. Dialysis. Monitor for dialysis disequilibrium syndrome. Assessment and Plan Thanks for the consult. Red Hopper MD Jan 15, 2018 15:32
[2018-01-15] MEDS ORDERED: SODIUM CHLORIDE 23.4% INJ 77 MEQ in DEXTROSE 10% INJ 1,000 ML IV SCH (18:00)
[2018-01-15] MEDS: SODIUM CHLORIDE 0.9% FLUSH 10 ML FLUSH IV FLUSH SCH (19:51)
[2018-01-15] MEDS ORDERED: ACETAMINOPHEN 1000 MG/100 ML 100 ML IV PRN (20:30)
[2018-01-16] VITALS (10 sets, daily range): BP systolic 136–164; BP diastolic 69–94; PULSE 87–109; RESP 18–20; TEMP 98–99.8; O2SAT 95–99
[2018-01-16 07:12] LABS: AUTOMATED NEUTROPHIL # 10.1 TH/MM3 (1.8-7.7); BASOPHIL % 0.2 % (0.0-2.0); EOSINOPHIL % 0.2 % (0.0-4.0); HEMOGLOBIN 10.5 GM/DL (13.0-17.0); LYMPH % 22.2 % (9.0-44.0); LYMPHOCYTE # 3.5 TH/MM3 (1.0-4.8); MEAN CELL VOLUME 90.5 FL (80.0-100.0); MEAN CORPUSCULAR HEMOGLOBIN 29.6 PG (27.0-34.0); MEAN CORPUSCULAR HGB CONC 32.8 % (32.0-36.0); MEAN PLATELET VOLUME 8.8 FL (7.0-11.0); MONO % 14.1 % (0.0-8.0); MONOCYTE # 2.2 TH/MM3 (0-0.9); NEUT % 63.3 % (16.0-70.0); PLATELET COUNT 142 TH/MM3 (150-450); RED BLOOD COUNT 3.54 MIL/MM3 (4.50-5.90); RED CELL DISTRIBUTION WIDTH 17.1 % (11.6-17.2); WHITE BLOOD COUNT 15.9 TH/MM3 (4.0-11.0)
[2018-01-16] MEDS: SODIUM CHLORIDE 0.9% FLUSH 10 ML FLUSH IV FLUSH SCH ×2 (08:44→21:31)
[2018-01-16] MEDS ORDERED: GENTAMICIN INJ 80 MG in SODIUM CHLORIDE 0.9% INJ 100 ML IV ONE (09:00)
[2018-01-16] MEDS ORDERED: VANCOMYCIN INJ 1,250 MG in SODIUM CHLOR 0.9% 250 ML INJ 250 ML IV ONE (09:00)
--- NOTE | 2018-01-16 10:10 | HHI.NPPN ---
Subjective Interval History More alert today. Febrile yesterday, low grade fevers continue. He knows he is in a hospital, could not tell me which hospital he was in . Knows his name. Had dialysis yesterday. Objective Data Data Vital Signs Date Time Temp Pulse Resp B/P (MAP) Pulse Ox O2 Delivery O2 Flow Rate FiO2 01/16/18 08:00 98.7 99 18 156/87 (110) 99 01/16/18 04:00 98.0 88 20 141/69 (93) 99 01/16/18 03:51 87 01/16/18 00:00 93 01/16/18 00:00 99.8 93 20 136/73 (94) 97 01/15/18 21:35 21 01/15/18 20:00 102.8 126 22 162/73 (102) 95 01/15/18 19:44 123 01/15/18 18:04 100 01/15/18 16:30 98.2 97 18 147/81 (103) 100 01/15/18 16:00 98.2 97 18 147/81 (103) 100 01/15/18 13:50 01/15/18 12:09 98.1 91 16 162/80 (107) 99 Room Air 01/15/18 10:30 97.8 94 16 172/94 (120) 96 Room Air -: 01/16/18 0605 01/15/18 0945 Microbiology 01/15/18 Aerobic Blood Culture, Received Pending 01/15/18 Anaerobic Blood Culture, Received Pending 01/15/18 Aerobic Blood Culture, Received Pending 01/15/18 Anaerobic Blood Culture, Received Pending Physical Exam General Appearance: Well Developed, Malnourished Eyes Eye Exam: Pupils Equal Throat Throat Remarks poor dental hygiene. Pulmonary Resp Exam: Clear Bilaterally, Breath Sounds Equal Cardiology CV Exam: Regular Gastrointestinal/Abdomen GI Exam: Soft, Non-Tender Integumentary Skin Exam: Warm Extremeties Extremities Exam: No Edema Neurologic Neuro Exam: Moving All Extremities Neuro Remarks disorientation. Assessment/Plan Problem List: (1) End stage renal disease ICD Codes: N18.6 - End stage renal disease Status: Acute Plan: patient presented with uremia, uremic encephalopathy, hyperkalemia, fluid overload after missing dialysis treatments for 2 weeks. He was dialyzed emergently yesterday (01/15/18) Monitor his progress. manager speech to assist in finding outpatient dialysis unit. (2) HTN (hypertension) ICD Codes: I10 - Essential (primary) hypertension Status: Acute Plan: monitor after dialysis and fluid removal. (3) HIV disease ICD Codes: B20 - Human immunodeficiency virus [HIV] disease Status: Chronic Plan: it is unclear if he was on any antiretrovirals. Also unclear is status of the disease. (4) Hyperkalemia ICD Codes: E87.5 - Hyperkalemia Plan: Due to not having had dialysis for 2 weeks. Repeat labs after dialysis. Needs dietary potassium restriction when he is able to eat. If he is NPO, consider D10 at 20 ml/hour. (5) Anemia ICD Codes: D64.9 - Anemia, unspecified Status: Acute Plan: Epogen with dialysis. (6) Febrile illness ICD Codes: R50.9 - Fever, unspecified Plan: blood cultures are awaited. I have ordered Vancomycin and Gentamicin. May need to replace CVC. Look for other sources of infection in this immunocompromised host. (7) Acute metabolic encephalopathy ICD Codes: G93.41 - Metabolic encephalopathy Plan: Due to uremia. Some improvement is seen. Dialysis. Monitor for dialysis disequilibrium syndrome. Red Hopper MD Jan 16, 2018 10:10
[2018-01-16 11:10] LABS: BICARBONATE 18.7 MEQ/L (21.0-32.0); PHOSPHORUS 2.1 MG/DL (2.5-4.9)
[2018-01-16 11:14] LABS: CREATININE 16.33 MG/DL (0.60-1.30)
[2018-01-16 11:41] LABS: TOTAL PROTEIN 10.7 GM/DL (6.4-8.2)
--- NOTE | 2018-01-16 14:01 | EKG ---
Date Performed: 01/15/2018 Time Performed: 09:39:26 PTAGE: 47 years EKG: Sinus rhythm WITH FIRST DEGREE AV BLOCK ABNORMAL ECG PREVIOUS TRACING : 01/15/2018 09.35 Since the previous tracing, no significant change noted DOCTOR: Tomas Moses Interpretating Date/Time 01/17/2018 07:23:16
--- NOTE | 2018-01-16 16:35 | HHI.PR ---
Subjective Remarks Patient resting in bed, awake alert, he was able to know his name and the place but not the president of the timing Discussed with the nurse she told me his mental status now is doing much better than yesterday Objective Vitals Vital Signs Date Time Temp Pulse Resp B/P (MAP) Pulse Ox O2 Delivery O2 Flow Rate FiO2 01/16/18 12:00 98.0 104 18 146/81 (102) 99 01/16/18 11:30 95 21 01/16/18 08:00 98.7 99 18 156/87 (110) 99 01/16/18 04:00 98.0 88 20 141/69 (93) 99 01/16/18 03:51 87 01/16/18 00:00 93 01/16/18 00:00 99.8 93 20 136/73 (94) 97 01/15/18 21:35 21 01/15/18 20:00 102.8 126 22 162/73 (102) 95 01/15/18 19:44 123 01/15/18 18:04 100 I/O 01/15/18 01/15/18 01/15/18 01/16/18 01/16/18 01/16/18 07:00 15:00 23:00 07:00 15:00 23:00 Intake Total 100 ml 362 ml Output Total 3000 ml Balance -2900 ml 362 ml Intake IV Total 100 ml 362 ml Output Hemodialysis 3000 ml # Voids 3 Result Diagram: 01/16/18 0605 01/16/18 1022 Objective Remarks GENERAL: This is a well-nourished, well-developed patient, in no apparent distress. CARDIOVASCULAR: RRR, no gallops, or rubs. RESPIRATORY: Fair air entry bilaterally. No W, R, or R GASTROINTESTINAL: Abdomen soft, non-tender, nondistended. Positive bowel sounds MUSCULOSKELETAL: Extremities without clubbing, cyanosis, or edema. Pedal pulses appreciated NEUROLOGICAL: Awake and alert. Moves all extremity. Normal speech.no focal neurological deficit A/P Problem List: (1) End-stage renal disease on hemodialysis ICD Code: N18.6 - End stage renal disease; Z99.2 - Dependence on renal dialysis (2) Acute metabolic encephalopathy ICD Code: G93.41 - Metabolic encephalopathy (3) Hyperkalemia ICD Code: E87.5 - Hyperkalemia (4) HIV disease ICD Code: B20 - Human immunodeficiency virus [HIV] disease Status: Chronic Assessment and Plan End-stage renal disease on hemodialysis Acute metabolic encephalopathy Hyperkalemia HIV disease Plan: Appreciate nephrology consultation, patient missed hemodialysis to go Starting hemodialysis will be repeated tomorrow Continue monitoring BMP Mental status slightly better today is able to know his name and place only DVT prophylaxis patient resting in bed Juanita Gong MD Jan 16, 2018 16:35
[2018-01-17] VITALS (9 sets, daily range): BP systolic 118–156; BP diastolic 69–92; PULSE 79–95; RESP 17–20; TEMP 97.9–99; O2SAT 96–98
[2018-01-17] MEDS: SODIUM CHLORIDE 0.9% FLUSH 10 ML FLUSH IV FLUSH SCH ×2 (09:00→21:00)
--- NOTE | 2018-01-17 09:01 | HHI.NPPN ---
Subjective General Problems: Anemia Renal Failure: Chronic, End Stage Renal Disease Interval History Altered mental status better but persists. Seen during dialysis. Afebrile. (Raysa Bernal) Objective Data Data Vital Signs Date Time Temp Pulse Resp B/P (MAP) Pulse Ox O2 Delivery O2 Flow Rate FiO2 01/17/18 08:00 98.3 90 17 139/85 (103) 97 01/17/18 04:00 98.2 92 18 134/78 (96) 98 01/17/18 00:00 99.0 95 20 156/92 (113) 97 01/16/18 23:59 97 01/16/18 20:01 103 01/16/18 20:00 99.0 109 20 164/94 (117) 95 01/16/18 16:00 98.4 107 19 164/94 (117) 95 01/16/18 12:00 98.0 104 18 146/81 (102) 99 01/16/18 11:30 95 21 (Raysa Bernal) -: 01/16/18 0605 01/16/18 1022 Imaging Last [address] 01/15/18 0942 Signed Impressions: CONCLUSION: 1. No acute intracranial abnormality is identified. 2. Mucoperiosteal thickening versus air-fluid level in the left maxillary sinu s. Chest X-Ray 01/15/18 0942 Signed Impressions: CONCLUSION: 1. Mild interstitial opacities in lower lung zones could represent mild inters titial pulmonary edema. There is a small left pleural effusion. 2. Cardiac silhouette size remains mildly enlarged. Tubes & Lines: Perma-Cath (Raysa Bernal) Physical Exam General Appearance: Well Developed, No Acute Distress, Comfortable, Malnourished (Raysa Bernal) Eyes Eye Exam: Pupils Equal (Raysa Bernal) Throat Throat Exam: Oral Mucosa [place] & Moist (Raysa Bernal) Pulmonary Resp Exam: Clear Bilaterally, Breath Sounds Equal (Raysa Bernal) Cardiology CV Exam: Regular, Normal Sinus Rhythm (Raysa Bernal) Gastrointestinal/Abdomen GI Exam: Soft, Non-Tender, Bowel Sounds Present (Raysa Bernal) Musculoskeletal MS Exam: Joints Intact, Normal Tone (Raysa Bernal) Integumentary Skin Exam: Warm, Dry, Intact (Raysa Bernal) Extremeties Extremities Exam: No Edema, Pedal Pulses Palpable Extremeties Remarks AVF left arm + thrill, bruit (Raysa Bernal) Neurologic Neuro Exam: Awake, Oriented, Speech Clear, Moving All Extremities (Raysa Bernal) Assessment/Plan Discussed Condition With: Patient Assessment Summary: Anemia of CKD, End Stage Renal Disease Problem List: (1) End stage renal disease ICD Codes: N18.6 - End stage renal disease Status: Acute Plan: Seen during dialysis today on a 3K, 350 BFR, goal Uremic symptoms improved, will continue HD MWF Has PermCath for HD use, it is unclear is AVF is able to be used. It was placed in [place], the patient states he needs second step. business control manager to assist in finding outpatient dialysis unit. Was going to [facility], may have insurance issues. Avoid IVF administration Monitor electrolytes intermittently Low K renal diet, no protein restriction. (2) HTN (hypertension) ICD Codes: I10 - Essential (primary) hypertension Status: Acute Plan: BP much better. Not on scheduled antihypertensives. (3) HIV disease ICD Codes: B20 - Human immunodeficiency virus [HIV] disease Status: Chronic Plan: It is unclear if he was on HAART. Also unclear is status of the disease. (4) Hyperkalemia ICD Codes: E87.5 - Hyperkalemia Plan: Improved, monitor for recurrence (5) Anemia ICD Codes: D64.9 - Anemia, unspecified Status: Acute Plan: Epogen with dialysis. (6) Febrile illness ICD Codes: R50.9 - Fever, unspecified Plan: blood cultures are in process. Given Vancomycin and Gentamicin. May need to replace CVC. Look for other sources of infection in this immunocompromised host. (7) Acute metabolic encephalopathy ICD Codes: G93.41 - Metabolic encephalopathy Plan: Most likely due to uremia. Some improvement is seen. Monitor. (Raysa Bernal) Plan patient was seen and examined. Agree with above assessment and plan. Seen during dialysis. (Red Hopper MD) Raysa Bernal Jan 17, 2018 09:01 Red Hopper MD Jan 18, 2018 10:37
[2018-01-17] MEDS: EPOETIN ALFA 10,000 UNITS/ML VIAL IV PUSH PRN (11:20)
[2018-01-17] MEDS: HEPARIN SODIUM - IV 10,000 UNITS/10 ML VIAL PRN ×2 (11:30→12:10)
[2018-01-17] MEDS: GENTAMICIN SULFATE 20 MG/2 ML VIAL OTHER PRN ×2 (11:30→12:10)
--- NOTE | 2018-01-17 16:18 | HHI.PR ---
Subjective Remarks Seen earlier today, still no change in clinical picture awake alert but confused , going for hemodialysis Objective Vitals Vital Signs Date Time Temp Pulse Resp B/P (MAP) Pulse Ox O2 Delivery O2 Flow Rate FiO2 01/17/18 16:00 97.9 84 17 118/69 (85) 96 01/17/18 12:35 98.1 79 17 127/71 (89) 96 01/17/18 09:04 97 01/17/18 08:00 98.3 90 17 139/85 (103) 97 01/17/18 07:59 87 01/17/18 04:00 98.2 92 18 134/78 (96) 98 01/17/18 00:00 99.0 95 20 156/92 (113) 97 01/16/18 23:59 97 01/16/18 20:01 103 01/16/18 20:00 99.0 109 20 164/94 (117) 95 I/O 01/16/18 01/16/18 01/16/18 01/17/18 01/17/18 01/17/18 06:59 14:59 22:59 06:59 14:59 22:59 Intake Total 362 ml 700 ml 430 ml Output Total 0 ml 150 ml 3000 ml Balance 362 ml 700 ml 280 ml -3000 ml Intake Oral 700 ml 430 ml IV Total 362 ml 0 ml Tube Feeding 0 ml Output Urine Total 0 ml 150 ml Hemodialysis 3000 ml # Voids 3 # Bowel Movements 0 1 Result Diagram: 01/16/18 0605 01/16/18 1022 Objective Remarks GENERAL: This is a well-nourished, well-developed patient, in no apparent distress. CARDIOVASCULAR: RRR, no gallops, or rubs. RESPIRATORY: Fair air entry bilaterally. No W, R, or R GASTROINTESTINAL: Abdomen soft, non-tender, nondistended. Positive bowel sounds MUSCULOSKELETAL: Extremities without clubbing, cyanosis, or edema. Pedal pulses appreciated NEUROLOGICAL: Awake and alert. Moves all extremity. Normal speech.no focal neurological deficit A/P Problem List: (1) End-stage renal disease on hemodialysis ICD Code: N18.6 - End stage renal disease; Z99.2 - Dependence on renal dialysis (2) Acute metabolic encephalopathy ICD Code: G93.41 - Metabolic encephalopathy (3) Hyperkalemia ICD Code: E87.5 - Hyperkalemia (4) HIV disease ICD Code: B20 - Human immunodeficiency virus [HIV] disease Status: Chronic Assessment and Plan End-stage renal disease on hemodialysis Acute metabolic encephalopathy Hyperkalemia HIV disease Plan: Appreciate nephrology consultation, patient missed hemodialysis to go Starting hemodialysis will be repeated tomorrow Continue monitoring BMP Mental status slightly better today is able to know his name and place only DVT prophylaxis patient resting in bed 01/17: Continue current care, hemodialysis with monitoring BMP monitor clinical improvement for mental status Juanita Gong MD Jan 17, 2018 16:18
[2018-01-17 18:21] LABS: BICARBONATE 24.9 MEQ/L (21.0-32.0); CALCIUM 7.2 MG/DL (8.5-10.1); MAGNESIUM 2.2 MG/DL (1.5-2.5); PHOSPHORUS 2.3 MG/DL (2.5-4.9)
[2018-01-17 18:57] LABS: TOTAL PROTEIN 11.3 GM/DL (6.4-8.2)
[2018-01-17 19:42] LABS: CREATININE 10.94 MG/DL (0.60-1.30)
[2018-01-18] VITALS (7 sets, daily range): BP systolic 116–134; BP diastolic 64–81; PULSE 72–85; RESP 16–19; TEMP 97.6–98.7; O2SAT 94–98
[2018-01-18 08:09] LABS: BICARBONATE 24.1 MEQ/L (21.0-32.0)
[2018-01-18 08:21] LABS: AUTOMATED NEUTROPHIL # 3.2 TH/MM3 (1.8-7.7); BASOPHIL % 0.2 % (0.0-2.0); EOSINOPHIL # 0.1 TH/MM3 (0-0.4); EOSINOPHIL % 1.2 % (0.0-4.0); HEMATOCRIT 30.8 % (39.0-51.0); HEMOGLOBIN 10.2 GM/DL (13.0-17.0); LYMPH % 43.5 % (9.0-44.0); LYMPHOCYTE # 3.3 TH/MM3 (1.0-4.8); MEAN CELL VOLUME 89.4 FL (80.0-100.0); MEAN CORPUSCULAR HEMOGLOBIN 29.7 PG (27.0-34.0); MEAN CORPUSCULAR HGB CONC 33.2 % (32.0-36.0); MEAN PLATELET VOLUME 9.1 FL (7.0-11.0); MONO % 13.7 % (0.0-8.0); MONOCYTE # 1.1 TH/MM3 (0-0.9); NEUT % 41.4 % (16.0-70.0); PLATELET COUNT 168 TH/MM3 (150-450); RED BLOOD COUNT 3.45 MIL/MM3 (4.50-5.90); RED CELL DISTRIBUTION WIDTH 16.7 % (11.6-17.2); WHITE BLOOD COUNT 7.7 TH/MM3 (4.0-11.0)
[2018-01-18 08:49] LABS: LYMPHOCYTES 21 % (9-44); MONOCYTES 24 % (0-8); NEUTROPHIL # MANUAL DIFF 4.2 TH/MM3 (1.8-7.7); POLYS (SEG NEUTROPHILS) 55 % (16-70)
[2018-01-18 08:50] LABS: TARGET CELLS 1+ (NORMAL); TOTAL PROTEIN 11.3 GM/DL (6.4-8.2)
[2018-01-18 08:55] LABS: CALCIUM 7.2 MG/DL (8.5-10.1); CREATININE 12.04 MG/DL (0.60-1.30)
[2018-01-18] MEDS ORDERED: ACETAMINOPHEN 325 MG TAB PO PRN (09:15)
[2018-01-18] MEDS: SODIUM CHLORIDE 0.9% FLUSH 10 ML FLUSH IV FLUSH SCH ×2 (09:17→21:50)
--- NOTE | 2018-01-18 10:28 | HHI.NPPN ---
Subjective General Problems: Anemia Renal Failure: Chronic, End Stage Renal Disease Interval History Mental status is better. Dialyzed yesterday. No new concerns. Afebrile. (Raysa Bernal) Objective Data Data Vital Signs Date Time Temp Pulse Resp B/P (MAP) Pulse Ox O2 Delivery O2 Flow Rate FiO2 01/18/18 08:00 97.6 74 16 134/81 (98) 98 01/18/18 07:58 78 01/18/18 04:00 98.7 85 18 125/73 (90) 95 01/18/18 00:00 97.7 81 18 130/74 (92) 96 01/17/18 20:00 97.9 91 18 118/72 (87) 97 01/17/18 18:01 96 21 01/17/18 16:00 97.9 84 17 118/69 (85) 96 01/17/18 12:35 98.1 79 17 127/71 (89) 96 (Raysa Bernal) -: 01/18/18 0715 01/18/18 0715 Tubes & Lines: Perma-Cath (Raysa Bernal) Physical Exam General Appearance: Well Developed, No Acute Distress, Comfortable, Malnourished (Raysa Bernal) Eyes Eye Exam: Pupils Equal (Raysa Bernal) Throat Throat Exam: Oral Mucosa [place] & Moist (Raysa Bernal) Pulmonary Resp Exam: Clear Bilaterally, Breath Sounds Equal (Raysa Bernal) Cardiology CV Exam: Regular, Normal Sinus Rhythm (Raysa Bernal) Gastrointestinal/Abdomen GI Exam: Soft, Non-Tender, Bowel Sounds Present (Raysa Bernal) Musculoskeletal MS Exam: Joints Intact, Normal Tone (Raysa Bernal) Integumentary Skin Exam: Warm, Dry, Intact (Raysa Bernal) Extremeties Extremities Exam: No Edema, Pedal Pulses Palpable Extremeties Remarks AVF left arm + thrill, bruit (Raysa Bernal) Neurologic Neuro Exam: Awake, Oriented, Speech Clear, Moving All Extremities (Raysa Bernal) Assessment/Plan Discussed Condition With: Patient Assessment Summary: Anemia of CKD, End Stage Renal Disease Problem List: (1) End stage renal disease ICD Codes: N18.6 - End stage renal disease Status: Acute Plan: We will continue HD MWF Has PermCath for HD use, it is unclear is AVF is able to be used. It was placed in [place], the patient states he needs second step. Vascular consulted to [place]. provider relations manager to assist in finding outpatient dialysis unit. Was going to [facility], may have insurance issues. Avoid IVF administration Monitor electrolytes intermittently Low K renal diet, no protein restriction. (2) HTN (hypertension) ICD Codes: I10 - Essential (primary) hypertension Status: Acute Plan: Blood pressure improved. Not on scheduled antihypertensives. (3) HIV disease ICD Codes: B20 - Human immunodeficiency virus [HIV] disease Status: Chronic Plan: It is unclear if he was on HAART. Also unclear is status of the disease. (4) Hyperkalemia ICD Codes: E87.5 - Hyperkalemia Plan: Improved, monitor for recurrence (5) Anemia ICD Codes: D64.9 - Anemia, unspecified Status: Acute Plan: Epogen with dialysis. (6) Febrile illness ICD Codes: R50.9 - Fever, unspecified Plan: Currently afebrile, without leukocytoisis. Blood cultures negative to date Given Vancomycin and Gentamicin. May need to replace CVC. Look for other sources of infection in this immunocompromised host. (7) Acute metabolic encephalopathy ICD Codes: G93.41 - Metabolic encephalopathy Plan: Most likely due to uremia. Significant improvement is seen. Monitor. (Raysa Bernal) Plan patient was seen and examined. Agree with above assessment and plan. (Red Hopper MD) Raysa Bernal Jan 18, 2018 10:28 Red Hopper MD Jan 18, 2018 11:07
--- NOTE | 2018-01-18 11:01 | HHI.PR ---
Subjective Remarks more awake and alert oriented father at the bedside no f/c cr 12.34 one tube of the bcx came + for G+cocci Objective Vitals Vital Signs Date Time Temp Pulse Resp B/P (MAP) Pulse Ox O2 Delivery O2 Flow Rate FiO2 01/18/18 08:00 97.6 74 16 134/81 (98) 98 01/18/18 07:58 78 01/18/18 04:00 98.7 85 18 125/73 (90) 95 01/18/18 00:00 97.7 81 18 130/74 (92) 96 01/17/18 20:00 97.9 91 18 118/72 (87) 97 01/17/18 18:01 96 21 01/17/18 16:00 97.9 84 17 118/69 (85) 96 01/17/18 12:35 98.1 79 17 127/71 (89) 96 I/O 01/17/18 01/17/18 01/17/18 01/18/18 01/18/18 01/18/18 07:00 15:00 23:00 07:00 15:00 23:00 Intake Total 430 ml 800 ml 480 ml Output Total 150 ml 3000 ml 50 ml Balance 280 ml -3000 ml 750 ml 480 ml Intake Oral 430 ml 800 ml 480 ml IV Total 0 ml Tube Feeding 0 ml Output Urine Total 150 ml 50 ml Hemodialysis 3000 ml # Voids 0 # Bowel Movements 1 1 0 Result Diagram: 01/18/1815 01/18/18 0715 Objective Remarks GENERAL: This is a well-nourished, well-developed patient, in no apparent distress. CARDIOVASCULAR: RRR, no gallops, or rubs. RESPIRATORY: Fair air entry bilaterally. No W, R, or R GASTROINTESTINAL: Abdomen soft, non-tender, nondistended. Positive bowel sounds MUSCULOSKELETAL: Extremities without clubbing, cyanosis, or edema. Pedal pulses appreciated NEUROLOGICAL: Awake and alert. Moves all extremity. Normal speech.no focal neurological deficit A/P Problem List: (1) End-stage renal disease on hemodialysis ICD Code: N18.6 - End stage renal disease; Z99.2 - Dependence on renal dialysis (2) Acute metabolic encephalopathy ICD Code: G93.41 - Metabolic encephalopathy (3) Hyperkalemia ICD Code: E87.5 - Hyperkalemia (4) HIV disease ICD Code: B20 - Human immunodeficiency virus [HIV] disease Status: Chronic Assessment and Plan End-stage renal disease on hemodialysis Acute metabolic encephalopathy Hyperkalemia HIV disease Plan: Appreciate nephrology consultation, patient missed hemodialysis to go Starting hemodialysis will be repeated tomorrow Continue monitoring BMP Mental status slightly better today is able to know his name and place only DVT prophylaxis patient resting in bed 01/17: Continue current care, hemodialysis with monitoring BMP monitor clinical improvement for mental status. 01/18: mental status improved cont HD , renal ff , ff bmp, vascular sx to eval his left avf Juanita Gong MD Jan 18, 2018 11:01
--- NOTE | 2018-01-18 12:48 | PD.VS.CON ---
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 End-stage renal disease on hemodialysis Significant issues with compliance Past Surgical History L UE AVF Right chest tunneled cath Social History Pt denied Per EMR ETOH denied Smoking- denied Illicit drug usage -denied Lives w/ family in [facility] Single Unemployed No children Family History Mother- Neg hx Father- HTN, DM (Lucille Brewer SHOE RECONDITIONER) Home Medications Reported Medications Metronidazole (Flagyl) 500 Mg Tab, 500 MG PO BID for Infection, TAB 0 Refills 01/15/18 Discontinued Reported Medications [Phosphate Binder] No Conflict Check 08/20/16 [Bp Med] No Conflict Check 08/20/16 Tenofovir disoproxil fumarate (Viread) 300 Mg Tab, 300 MG PO Q7DAYS for Mgmt Viral Infection, #8 TAB 0 Refills 08/20/16 [id number] Mg (Emtriva) 200 Mg Cap, 200 MG PO Q4D for Mgmt Viral Infection, #8 CAP 0 Refills 08/20/16 Efavirenz (Sustiva) 600 Mg Tab, 600 MG PO HS for Mgmt Viral Infection, #30 TAB 0 Refills 08/20/16 Discontinued Scripts Metronidazole (Flagyl) 500 Mg Tab, 500 MG PO TID for Infection, #21 TAB 0 Refills Prov:Jhony Albert MD 01/09/18 Amlodipine (Norvasc) 5 Mg Tab, 5 MG PO DAILY for HTN for 30 Days, TAB Prov:Roxanne Ramos MD 10/20/16 Carvedilol (Coreg) 12.5 Mg Tab, 12.5 MG PO Q12HR for HTN for 30 Days, TAB Prov:Roxanne Ramos MD 10/20/16 Budesonide-Formoterol Inh (Symbicort Inh) 80-4.5 Mcg/Act Aero, 1 PUFF INH Q12HR for HAD for 30 Days, INHALER Prov:Roxanne Ramos MD 10/20/16 Coded Allergies: *MDRO Multi-Drug Resistant Organism (Verified Adverse Reaction, Unknown, ) 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 Review of Systems ROS Limitations: Poor Historian Constitutional: DENIES: Fever, Chills Except as stated in HPI: all other systems reviewed are Neg (Lucille Brewer) Physical Exam Vitals/I&O Date Time Temp Pulse Resp B/P (MAP) Pulse Ox O2 Delivery O2 Flow Rate FiO2 01/18/18 08:00 97.6 74 16 134/81 (98) 98 01/18/18 07:58 78 01/18/18 04:00 98.7 85 18 125/73 (90) 95 01/18/18 00:00 97.7 81 18 130/74 (92) 96 01/17/18 20:00 97.9 91 18 118/72 (87) 97 01/17/18 18:01 96 21 01/17/18 16:00 97.9 84 17 118/69 (85) 96 01/17/18 12:35 98.1 79 17 127/71 (89) 96 01/18/18 01/18/18 01/18/18 07:00 15:00 23:00 Intake Total 480 ml Balance 480 ml Neuro: Alert in NAD Speech clear HEENT: GLORIA Neck: No JVD distention Heart: RRR Lungs: CTA Abdomen: S/NT Vascular: Palpable R/L Radial pulse (2+) Extremities: UE 5/5 (Lucille Brewer) Laboratory Tests Test 01/17/18 17:05 01/18/18 07:15 Blood Urea Nitrogen 54 65 Creatinine 10.94 12.04 Random Glucose 96 85 Total Protein 11.3 11.3 Calcium Level 7.2 7.2 Phosphorus Level 2.3 Magnesium Level 2.2 Sodium Level 133 133 Potassium Level 3.4 3.5 Chloride Level 97 98 Carbon Dioxide Level 24.9 24.1 Anion Gap 11 11 Estimat Glomerular Filtration Rate 6 6 Protein Corrected Calcium White Blood Count 7.7 Red Blood Count 3.45 Hemoglobin 10.2 Hematocrit 30.8 Mean Corpuscular Volume 89.4 Mean Corpuscular Hemoglobin 29.7 Mean Corpuscular Hemoglobin Concent 33.2 Red Cell Distribution Width 16.7 Platelet Count 168 Mean Platelet Volume 9.1 Neutrophils (%) (Auto) 41.4 Lymphocytes (%) (Auto) 43.5 Monocytes (%) (Auto) 13.7 Eosinophils (%) (Auto) 1.2 Basophils (%) (Auto) 0.2 Neutrophils # (Auto) 3.2 Lymphocytes # (Auto) 3.3 Monocytes # (Auto) 1.1 Eosinophils # (Auto) 0.1 Basophils # (Auto) 0.0 CBC Comment AUTO DIFF Differential Total Cells Counted 100 Neutrophils % (Manual) 55 Lymphocytes % 21 Monocytes % 24 Neutrophils # (Manual) 4.2 Differential Comment FINAL DIFF MANUAL Platelet Estimate NORMAL Platelet Morphology Comment NORMAL Basophilic Stippling FAINT Target Cells 1+ Date/Time Source Procedure Growth Status 01/15/18 21:28 Blood Peripheral Aerobic Blood Culture - Preliminary NO GROWTH IN 3 DAYS Resulted 01/15/18 21:28 Blood Peripheral Anaerobic Blood Culture - Preliminary NO GROWTH IN 3 DAYS Resulted (Lucille Brewer) Assessment and Plan Assessment: (1) End-stage renal disease on hemodialysis (2) HIV nephropathy Status: Acute Plan 47/M on HD (M/W/F) in need of L UE AVF access revision Plan Discussed AVF transposition w/ pt and father Questions answered Arranged out pt f/u in 2W w/ AVF Duplex Pt made aware of plan Lucille Brewer NP [facility] [phone] Discharge Planning Arranged out pt f/u (Lucille Brewer) Plan Pt with patent L UE AVF. Feels like brachiobasilic although may actually be AC vein with basilic outflow. Needs AVF duplex and transposition. Will arrange as outpatient. Torito Bustamante MD FACS RPVI charge gang weigher [facility] - [facility] V[facility] Surgery at [facility] [phone] (Torito Bustamante MD) Lucille Brewer Jan 18, 2018 12:48 Torito Bustamante MD Jan 18, 2018 13:06
[2018-01-19] VITALS: BP 120/65; PULSE 84; RESP 19; TEMP 98.6; O2SAT 95
[2018-01-19 04:00] VITALS: BP 120/67; PULSE 78; RESP 19; TEMP 98.7; O2SAT 92
[2018-01-19 08:00] VITALS: BP 143/82; PULSE 72; RESP 18; TEMP 97.7; O2SAT 98
[2018-01-19] MEDS: SODIUM CHLORIDE 0.9% FLUSH 10 ML FLUSH IV FLUSH SCH ×2 (08:58→21:00)
[2018-01-19 11:03] LABS: ALBUMIN 2.4 GM/DL (3.4-5.0); BICARBONATE 24.7 MEQ/L (21.0-32.0); PHOSPHORUS 2.9 MG/DL (2.5-4.9)
--- NOTE | 2018-01-19 11:13 | HHI.PR ---
Subjective Remarks She says he is feeling all right, feels like going home. Denies any chest pain or shortness of breath. Denies nausea or vomiting. Denies constipation or diarrhea. Objective Vital Signs Date Time Temp Pulse Resp B/P (MAP) Pulse Ox O2 Delivery O2 Flow Rate FiO2 01/19/18 08:00 97.7 72 18 143/82 (102) 98 01/19/18 04:00 98.7 78 19 120/67 (84) 92 01/19/18 00:00 98.6 84 19 120/65 (83) 95 01/18/18 20:00 98.6 80 19 116/64 (81) 94 01/18/18 16:00 98.0 72 17 128/80 (96) 96 01/18/18 12:00 97.9 79 17 127/77 (94) 96 I/O 01/18/18 01/18/18 01/18/18 01/19/18 01/19/18 01/19/18 06:59 14:59 22:59 06:59 14:59 22:59 Intake Total 480 ml 1680 ml 240 ml Output Total 50 ml Balance 480 ml 1630 ml 240 ml Intake Oral 480 ml 1680 ml 240 ml Output Urine Total 50 ml # Voids 0 0 # Bowel Movements 0 2 1 Result Diagram: 01/18/18 0715 01/18/18 0715 Objective Remarks GENERAL: Patient sitting up in bed. Appears comfortable. Alert and oriented 3. SKIN: Warm and dry. HEAD: Normocephalic. EYES: No scleral icterus. No injection or drainage. NECK: Supple, trachea midline. No JVD. CARDIOVASCULAR: Regular rate and rhythm without murmurs, gallops, or rubs. RESPIRATORY: Breath sounds equal bilaterally. No accessory muscle use. GASTROINTESTINAL: Abdomen soft, non-tender, nondistended. MUSCULOSKELETAL: No cyanosis, or edema. BACK: Nontender without obvious deformity. No CVA tenderness. A/P Assessment and Plan //End-stage renal disease on hemodialysis = Awaiting for arrangement of outpatient dialysis. Patient will need to follow- up with vascular surgery as outpatient for AV fistula. Patient nephrology assistance. Continue dialysis as per nephrology. //Acute metabolic encephalopathy = Likely secondary to uremia. Resolved. Appreciate nephrology assistance. //Hyperkalemia = Resolved after dialysis. //HIV disease = Patient had fever of 102.8, heart rate of 126, respiratory rate of 22 on . Blood cultures are positive for 1 out of 4 cultures gram-positive cocci. This is likely contaminant, however patient with HIV. = CD4 ordered and pending. We will consult infectious disease. Discharge Planning CD4, ID consult pending We will need outpatient follow-up with vascular surgery Awaiting chair time for hemodialysis. Sin Chacon MD Jan 19, 2018 11:13
[2018-01-19 11:15] LABS: CALCIUM 7.1 MG/DL (8.5-10.1); CREATININE 13.57 MG/DL (0.60-1.30)
--- NOTE | 2018-01-19 11:59 | HHI.NPPN ---
Subjective General Problems: Anemia Renal Failure: Chronic, End Stage Renal Disease Interval History Due for dialysis. States he wants to do continue outpatient HD in [place]. (Raysa Bernal) Objective Data Data Vital Signs Date Time Temp Pulse Resp B/P (MAP) Pulse Ox O2 Delivery O2 Flow Rate FiO2 01/19/18 08:00 97.7 72 18 143/82 (102) 98 01/19/18 04:00 98.7 78 19 120/67 (84) 92 01/19/18 00:00 98.6 84 19 120/65 (83) 95 01/18/18 20:00 98.6 80 19 116/64 (81) 94 01/18/18 16:00 98.0 72 17 128/80 (96) 96 01/18/18 12:00 97.9 79 17 127/77 (94) 96 (Raysa Bernal) -: 01/18/18 0715 01/19/18 1015 Tubes & Lines: Perma-Cath (Raysa Bernal) Physical Exam General Appearance: Well Developed, No Acute Distress, Comfortable, Malnourished (Raysa Bernal) Eyes Eye Exam: Pupils Equal (Raysa Bernal) Throat Throat Exam: Oral Mucosa [place] & Moist (Raysa Bernal) Pulmonary Resp Exam: Clear Bilaterally, Breath Sounds Equal (Raysa Bernal) Cardiology CV Exam: Regular, Normal Sinus Rhythm (Raysa Bernal) Gastrointestinal/Abdomen GI Exam: Soft, Non-Tender, Bowel Sounds Present (Raysa Bernal) Musculoskeletal MS Exam: Joints Intact, Normal Tone (Raysa Bernal) Integumentary Skin Exam: Warm, Dry, Intact (Raysa Bernal) Extremeties Extremities Exam: No Edema, Pedal Pulses Palpable Extremeties Remarks AVF left arm + thrill, bruit (Raysa Bernal) Neurologic Neuro Exam: Awake, Oriented, Speech Clear, Moving All Extremities (Raysa Bernal) Assessment/Plan Discussed Condition With: Patient Assessment Summary: Anemia of CKD, End Stage Renal Disease Problem List: (1) End stage renal disease ICD Codes: N18.6 - End stage renal disease Status: Acute Plan: Due for dialysis. He is on MWF HD. Mild hypokalemia noted, will have 4K bath today. PermCath for HD use. Has appt with Vascular in 2 weeks for transposition. engine manager to assist in finding outpatient dialysis unit. The patient wishes to go back to [place] for HD. CM aware. Avoid IVF administration Monitor electrolytes intermittently Low K renal diet, no protein restriction. (2) HTN (hypertension) ICD Codes: I10 - Essential (primary) hypertension Status: Acute Plan: Blood pressure improved. Not on scheduled antihypertensives. (3) HIV disease ICD Codes: B20 - Human immunodeficiency virus [HIV] disease Status: Chronic Plan: It is unclear if he was on HAART. Also unclear is status of the disease. (4) Hyperkalemia ICD Codes: E87.5 - Hyperkalemia Plan: Improved, monitor for recurrence (5) Anemia ICD Codes: D64.9 - Anemia, unspecified Status: Acute Plan: Epogen with dialysis. (6) Febrile illness ICD Codes: R50.9 - Fever, unspecified Plan: Currently afebrile, without leukocytoisis. Blood cultures negative to date Given Vancomycin and Gentamicin. May need to replace CVC. Look for other sources of infection in this immunocompromised host. (7) Acute metabolic encephalopathy ICD Codes: G93.41 - Metabolic encephalopathy Plan: Most likely due to uremia. Significant improvement is seen. Monitor. Plan Cleared for discharge provided outpatient HD is arranged. (Raysa Bernal) Plan patient was seen and examined. Agree with above assessment and plan. Patient lives in [facility], but prefers to have dialysis at [place], did not like [facility]. We are willing to accept him as our patient if transportation arrangements to [place] 3 times/week cannot be accomplished. (Red Hopper MD) Raysa Bernal Jan 19, 2018 11:59 Red Hopper MD Jan 19, 2018 18:00
[2018-01-19 12:00] VITALS: BP 108/64; PULSE 80; RESP 17; TEMP 97.6; O2SAT 97
[2018-01-19] MEDS: EPOETIN ALFA 10,000 UNITS/ML VIAL IV PUSH PRN (15:34)
[2018-01-19] MEDS: GENTAMICIN SULFATE 20 MG/2 ML VIAL OTHER PRN (15:34)
[2018-01-19] MEDS: HEPARIN SODIUM - IV 10,000 UNITS/10 ML VIAL PRN (15:35)
[2018-01-19 16:00] VITALS: BP 123/74; PULSE 78; RESP 16; TEMP 98; O2SAT 96
[2018-01-19 20:00] VITALS: BP 127/81; PULSE 79; RESP 20; TEMP 98; O2SAT 98
[2018-01-20] VITALS (8 sets, daily range): BP systolic 121–132; BP diastolic 63–82; PULSE 73–95; RESP 16–18; TEMP 97.4–98.6; O2SAT 96–98
[2018-01-20] MEDS: SODIUM CHLORIDE 0.9% FLUSH 10 ML FLUSH IV FLUSH SCH ×2 (09:03→22:19)
--- NOTE | 2018-01-20 10:44 | HHI.PR ---
Subjective Remarks Patient says he is feeling well. Denies any chest pain shortness of breath. Denies nausea or vomiting. Objective Vital Signs Date Time Temp Pulse Resp B/P (MAP) Pulse Ox O2 Delivery O2 Flow Rate FiO2 01/20/18 08:00 97.4 73 18 132/82 (99) 98 01/20/18 04:00 98.6 80 18 129/78 (95) 98 01/20/18 00:00 98.5 77 18 121/80 (94) 96 01/19/18 20:00 98.0 79 20 127/81 (96) 98 01/19/18 16:00 98.0 78 16 123/74 (90) 96 01/19/18 12:00 97.6 80 17 108/64 (79) 97 I/O 01/19/18 01/19/18 01/19/18 01/20/18 01/20/18 01/20/18 07:00 15:00 23:00 07:00 15:00 23:00 Intake Total 240 ml 840 ml 360 ml Output Total 3050 ml Balance 240 ml -2210 ml 360 ml Intake Oral 240 ml 840 ml 360 ml Output Urine Total 50 ml Hemodialysis 3000 ml # Voids 0 0 # Bowel Movements 1 0 0 Result Diagram: 01/18/18 0715 01/19/18 1015 Objective Remarks GENERAL: Patient sitting up in bed. Appears comfortable. Alert and oriented 3. no change SKIN: Warm and dry. HEAD: Normocephalic. EYES: No scleral icterus. No injection or drainage. NECK: Supple, trachea midline. No JVD. CARDIOVASCULAR: Regular rate and rhythm without murmurs, gallops, or rubs. RESPIRATORY: Breath sounds equal bilaterally. No accessory muscle use. GASTROINTESTINAL: Abdomen soft, non-tender, nondistended. MUSCULOSKELETAL: No cyanosis, or edema. BACK: Nontender without obvious deformity. No CVA tenderness. A/P Assessment and Plan //End-stage renal disease on hemodialysis = Awaiting for arrangement of outpatient dialysis. Patient will need to follow- up with vascular surgery as outpatient for AV fistula. Patient nephrology assistance. Continue dialysis as per nephrology. = Awaiting chair time and transportation in [place] //Acute metabolic encephalopathy = Likely secondary to uremia. Resolved. Appreciate nephrology assistance. //Hyperkalemia = Resolved after dialysis. //HIV disease = Patient had fever of 102.8, heart rate of 126, respiratory rate of 22 on . Blood cultures are positive for 1 out of 4 cultures gram-positive cocci. This is likely contaminant, however patient with HIV. = CD4 ordered and still pending. Follow-up ID recommendations. Discharge Planning CD4, ID consult pending We will need outpatient follow-up with vascular surgery Awaiting chair time for hemodialysis. Sin Chacon MD Jan 20, 2018 10:44
--- NOTE | 2018-01-20 12:18 | MB ---
cc: Moo Caal MD DATE: 01/20/2018 REQUESTING PHYSICIAN: Dr. Sin Chacon. REASON FOR CONSULTATION: HIV, fever of 102 degrees, positive blood culture. HISTORY OF PRESENT ILLNESS: This is a 47-year-old black male who was evaluated in the emergency department on 01/15/2018 for altered mental status. The patient has end-stage renal disease and he had been on dialysis, but had not been receiving dialysis since beginning of December. Patient tells me that he was incarcerated and was released on 01/01/2018. He reportedly was not eating and drinking well. The patient does not recall the circumstances around the decrease in his mental status. He was receiving dialysis in long term, but after release apparently there was no arrangement for dialysis outside. The patient had elevation in his temperature to 102 degrees on the evening of 01/15/2018. During the day, his temperature was normal. He had cultures taken including blood culture which came back showing 1 bottle with anaerobic gram-positive cocci. His white count was elevated at 11.1 and increased to 15.9 the following day. The white count has since normalized. The patient has been receiving inpatient dialysis after admission. Currently, he is awake and alert, and in no acute distress. He is able to give me a reasonable history. The patient has HIV disease. He was receiving [place] medications [place]. He states that he has not received medications after he was released. He tells me that he was on 2 medications, 1 which he took once a week and another that he took 3 times a week. This sounds like prophylactic medications rather than medications focused on HIV virus. Currently, he feels well. He denies nausea, vomiting, fatigue, headache, chills, shortness of breath or other symptoms. After the temperature spike on 01/15/2018, the temperature normalized and has remained normal. The scan of the head was performed on 01/15/2018 and showed no acute intracranial abnormality. Mucoperiosteal thickening versus air fluid level was noted in the left maxillary sinus. Chest x-ray showed mild interstitial opacities in the lower lung zones, which could represent interstitial pulmonary edema. Small left pleural effusion was noted. PAST MEDICAL HISTORY: Hypertension, asthma, HIV disease, AV fistula at the left upper extremity, vascular dialysis catheter at the right upper chest. ALLERGIES: NO KNOWN DRUG ALLERGIES. MEDICATIONS: 1. Tylenol p.r.n. 2. Neupogen p.r.n. 3. Vancomycin dose was given on 01/16/2018. SOCIAL HISTORY: Denies tobacco, denies alcohol, denies illicit drugs. FAMILY HISTORY: Noncontributory. REVIEW OF SYSTEMS: Negative on a 10-point review. PHYSICAL EXAMINATION: GENERAL: This is a well-developed male who is awake and alert. He is in no acute distress. He is oriented x 3. VITAL SIGNS: Temperature 97.4, BP 132/82, respirations 18, heart rate 73. HEENT: Head is atraumatic. Extraocular movements grossly intact. Pupils reactive to light. No icterus. No conjunctival erythema. Oropharynx moist mucosa. No thrush. No visible lesions. NECK: Supple without adenopathy. LUNGS: Decreased breath sounds. HEART: Regular S1 and S2. No murmurs, rubs or gallops. CHEST: Right upper chest has a vascular catheter in place with no erythema visible at the exit. ABDOMEN: Bowel sounds present, soft, nontender. No masses palpable. RECTAL: Not performed. EXTREMITIES: No clubbing, cyanosis or edema. SKIN: No rash. NEUROLOGIC: Alert and oriented. No gross focal finding. PSYCHIATRIC: The patient is calm and cooperative. LABORATORY DATA: WBC 7.7, platelets 168, 41% neutrophils, 43% lymphocytes, 13% monocytes. Creatinine 15.57, BUN 18, sodium 135. IMPRESSION: 1. Human immunodeficiency virus disease. 2. Positive blood culture with 1 bottle showing anaerobic gram-positive cocci from 01/15/2018 and patient had 1 episode of fever which subsequently improved, and also a white blood cell count was increased and that also improved. The patient without signs of sepsis currently. I believe the positive blood culture is contamination, and I do not think it is necessary to treat it. 3. End-stage renal disease treated with hemodialysis. RECOMMENDATIONS: 1. As far as HIV disease is concerned, the patient is to followup with an outpatient HIV provider to reinstate his HIV medicines. Information also needs to be obtained about the prophylactic medicines, which he is receiving. He told me that the information is available at the [facility], where he gets his hemodialysis. Once that information is available, the prophylactic medicines can be reinstated for PCP and MAC. 2. As far as the blood culture is considered, I think the patient can safely be discharged from the hospital from ID standpoint. He no longer has fever and he is stable. Thank you for this consultation. MD KADEN Pugh/KD , 11:20 AM , 12:17 PM
--- NOTE | 2018-01-20 13:34 | HHI.NPPN ---
Subjective General Problems: Anemia Renal Failure: Chronic, End Stage Renal Disease Interval History He is resting. Seen by ID. Afebrile. Dialyzed yesterday. (Raysa Bernal) Objective Data Data Vital Signs Date Time Temp Pulse Resp B/P (MAP) Pulse Ox O2 Delivery O2 Flow Rate FiO2 01/20/18 12:00 98.2 95 18 127/74 (91) 97 01/20/18 08:00 97.4 73 18 132/82 (99) 98 01/20/18 04:00 98.6 80 18 129/78 (95) 98 01/20/18 00:00 98.5 77 18 121/80 (94) 96 01/19/18 20:00 98.0 79 20 127/81 (96) 98 01/19/18 16:00 98.0 78 16 123/74 (90) 96 (Raysa Bernal) -: 01/18/18 0715 01/19/18 1015 Tubes & Lines: Perma-Cath (Raysa Bernal) Physical Exam General Appearance: Well Developed, No Acute Distress, Comfortable, Malnourished (Raysa Bernal) Eyes Eye Exam: Pupils Equal (Raysa Bernal) Throat Throat Exam: Oral Mucosa [place] & Moist (Raysa Bernal) Pulmonary Resp Exam: Clear Bilaterally, Breath Sounds Equal (Raysa Bernal) Cardiology CV Exam: Regular, Normal Sinus Rhythm (Raysa Bernal) Gastrointestinal/Abdomen GI Exam: Soft, Non-Tender, Bowel Sounds Present (Raysa Bernal) Musculoskeletal MS Exam: Joints Intact, Normal Tone (Raysa Bernal) Integumentary Skin Exam: Warm, Dry, Intact (Raysa Bernal) Extremeties Extremities Exam: No Edema, Pedal Pulses Palpable Extremeties Remarks AVF left arm + thrill, bruit (Raysa Bernal) Neurologic Neuro Exam: Awake, Oriented, Speech Clear, Moving All Extremities (Raysa Bernal) Assessment/Plan Discussed Condition With: Patient Assessment Summary: Anemia of CKD, End Stage Renal Disease Problem List: (1) End stage renal disease ICD Codes: N18.6 - End stage renal disease Status: Acute Plan: Continue HD MWF. PermCath for HD use. Has appt with Vascular in 2 weeks for transposition. route service manager to assist in finding outpatient dialysis unit. The patient wishes to go back to [place] for HD. CM aware. Avoid IVF administration Monitor electrolytes intermittently Low K renal diet, no protein restriction. Can be discharged once HD arrangements complete. (2) HTN (hypertension) ICD Codes: I10 - Essential (primary) hypertension Status: Acute Plan: Blood pressure improved. Not on scheduled antihypertensives. (3) HIV disease ICD Codes: B20 - Human immunodeficiency virus [HIV] disease Status: Chronic Plan: ID evaluated, not starting HAART at this time. (4) Hyperkalemia ICD Codes: E87.5 - Hyperkalemia Plan: Improved, monitor for recurrence (5) Anemia ICD Codes: D64.9 - Anemia, unspecified Status: Acute Plan: Epogen with dialysis. (6) Febrile illness ICD Codes: R50.9 - Fever, unspecified Plan: ID evaluated. He is currently afebrile, improved leukocytosis. Blood cultures with likely contaminant Not ordered antibiotics. CVC can remain in place. (7) Acute metabolic encephalopathy ICD Codes: G93.41 - Metabolic encephalopathy Plan: Most likely due to uremia. Significant improvement is seen. Monitor. Plan (Raysa Bernal) Plan patient was seen and examined. Agree with above assessment and plan. (Red Hopper MD) Raysa Bernal Jan 20, 2018 13:34 eRd Hopper MD Jan 21, 2018 07:59
--- NOTE | 2018-01-20 14:43 | HHI.DS ---
Discharge Summary Admission Date Jan 15, 2018 at 12:22 Admitting Diagnosis Altered mental status/acute on chronic renal failure/uremia (1) End-stage renal disease on hemodialysis ICD Code: N18.6 - End stage renal disease; Z99.2 - Dependence on renal dialysis (2) Acute metabolic encephalopathy ICD Code: G93.41 - Metabolic encephalopathy (3) Hyperkalemia ICD Code: E87.5 - Hyperkalemia (4) HIV disease ICD Code: B20 - Human immunodeficiency virus [HIV] disease Status: Chronic Brief History - From Admission The history is obtained from the chart and review of the medical records. 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 According to his girlfriend he has not received dialysis since the beginning of December. He has become more confused and disoriented per the girlfriend. Patient has not been eating or drinking well. It appears that he used to get dialysis in [place] at some point. It is unclear why he has not been receiving dialysis here. He presented to the emergency room here about 10 days ago and was referred to the outpatient dialysis center. However it does not appear that he has been getting dialysis. He has significant uremia on presentation. The patient was seen by nephrology and emergently taken to dialysis. He is seen in the dialysis unit. He is lethargic and not able to contribute to the history. CBC/BMP: 01/18/18 0715 01/19/18 1015 Significant Findings Laboratory Tests Test 01/17/18 17:05 01/18/18 07:15 01/19/18 09:23 01/19/18 10:15 Blood Urea Nitrogen 54 MG/DL (7-18) 65 MG/DL (7-18) 80 MG/DL (7-18) Creatinine 10.94 MG/DL (0.60-1.30) 12.04 MG/DL (0.60-1.30) 13.57 MG/DL (0.60-1.30) Total Protein 11.3 GM/DL (6.4-8.2) 11.3 GM/DL (6.4-8.2) Calcium Level 7.2 MG/DL (8.5-10.1) 7.2 MG/DL (8.5-10.1) 7.1 MG/DL (8.5-10.1) Phosphorus Level 2.3 MG/DL (2.5-4.9) Sodium Level 133 MEQ/L (136-145) 133 MEQ/L (136-145) 135 MEQ/L (136-145) Potassium Level 3.4 MEQ/L (3.5-5.1) 3.4 MEQ/L (3.5-5.1) Chloride Level 97 MEQ/L (98-107) 97 MEQ/L (98-107) Estimat Glomerular Filtration Rate 6 ML/MIN (>89) 6 ML/MIN (>89) 5 ML/MIN (>89) Red Blood Count 3.45 MIL/MM3 (4.50-5.90) Hemoglobin 10.2 GM/DL (13.0-17.0) Hematocrit 30.8 % (39.0-51.0) Monocytes (%) (Auto) 13.7 % (0.0-8.0) Monocytes # (Auto) 1.1 TH/MM3 (0-0.9) Monocytes % 24 % (0-8) Basophilic Stippling FAINT (NORMAL) Target Cells 1+ (NORMAL) Random Glucose 133 MG/DL (74-106) Albumin 2.4 GM/DL (3.4-5.0) PE at Discharge GENERAL: This is a well-nourished, well-developed patient, in no apparent distress. CARDIOVASCULAR: RRR, no gallops, or rubs. RESPIRATORY: Fair air entry bilaterally. No W, R, or R GASTROINTESTINAL: Abdomen soft, non-tender, nondistended. Positive bowel sounds MUSCULOSKELETAL: Extremities without clubbing, cyanosis, or edema. Pedal pulses appreciated NEUROLOGICAL: Awake and alert. Moves all extremity. Normal speech.no focal neurological deficit Hospital Course //End-stage renal disease on hemodialysis = Awaiting for arrangement of outpatient dialysis. Patient will need to follow- up with vascular surgery as outpatient for AV fistula. Patient nephrology assistance. Continue dialysis as per nephrology. = Awaiting chair time and transportation in [place] //Acute metabolic encephalopathy = Likely secondary to uremia. Resolved. Appreciate nephrology assistance. //Hyperkalemia = Resolved after dialysis. //HIV disease = Patient had fever of 102.8, heart rate of 126, respiratory rate of 22 on . Blood cultures are positive for 1 out of 4 cultures gram-positive cocci. This is likely contaminant, however patient with HIV. = CD4 ordered and still pending. Follow-up ID recommendations. Discharge Planning CD4, ID consult pending We will need outpatient follow-up with vascular surgery Awaiting chair time for hemodialysis. Pt Condition on Discharge: Good Discharge Disposition: Discharge Home Discharge Time: > 30 minutes Discharge Instructions DIET: Follow Instructions for: Renal Failure Diet Activities you can perform: Regular-No Restrictions Sin Chacon MD Jan 20, 2018 14:43
[2018-01-21] VITALS: BP 145/81; PULSE 77; RESP 16; TEMP 98; O2SAT 98
[2018-01-21 04:00] VITALS: BP 129/76; PULSE 72; RESP 16; TEMP 97.9; O2SAT 96
[2018-01-21 08:00] VITALS: BP 127/78; PULSE 73; RESP 18; TEMP 97.5; O2SAT 99
--- NOTE | 2018-01-21 08:40 | HHI.NPPN ---
Subjective General Problems: Anemia Renal Failure: Chronic, End Stage Renal Disease Additional Remarks Seen during hemodialysis tolerating well. No complaints. (Lidia Ricardo) Objective Data Data Vital Signs Date Time Temp Pulse Resp B/P (MAP) Pulse Ox O2 Delivery O2 Flow Rate FiO2 01/21/18 08:00 97.5 73 18 127/78 (94) 99 01/21/18 04:00 97.9 72 16 129/76 (93) 96 01/21/18 00:00 98.0 77 16 145/81 (102) 98 01/20/18 23:55 81 01/20/18 20:00 98.0 77 16 124/71 (88) 98 01/20/18 19:56 77 01/20/18 16:00 98.1 75 18 122/63 (82) 97 01/20/18 12:00 98.2 95 18 127/74 (91) 97 (Liida Ricardo) -: 01/18/18 0715 01/19/18 1015 Imaging Last Impressions Head CT 01/15/18 0942 Signed Impressions: CONCLUSION: 1. No acute intracranial abnormality is identified. 2. Mucoperiosteal thickening versus air-fluid level in the left maxillary sinu s. Chest X-Ray 01/15/18 0942 Signed Impressions: CONCLUSION: 1. Mild interstitial opacities in lower lung zones could represent mild inters titial pulmonary edema. There is a small left pleural effusion. 2. Cardiac silhouette size remains mildly enlarged. Tubes & Lines: Perma-Cath (Lidia Ricardo) Physical Exam General Appearance: Well Developed, No Acute Distress, Comfortable, Malnourished (Lidia Ricardo) Eyes Eye Exam: Pupils Equal (Lidia Ricardo) Throat Throat Exam: Oral Mucosa Edson & Moist (Lidia Ricardo) Pulmonary Resp Exam: Clear Bilaterally, Breath Sounds Equal (Lidia Ricardo) Cardiology CV Exam: Regular, Normal Sinus Rhythm (Lidia Ricardo) Gastrointestinal/Abdomen GI Exam: Soft, Non-Tender, Bowel Sounds Present (Lidia Ricardo) Musculoskeletal MS Exam: Joints Intact, Normal Tone (Lidia Ricardo) Integumentary Skin Exam: Warm, Dry, Intact (Lidia Ricardo) Extremeties Extremities Exam: No Edema, Pedal Pulses Palpable (Lidia Ricardo) Neurologic Neuro Exam: Awake, Oriented, Speech Clear, Moving All Extremities (Lidia Ricarod) Assessment/Plan Discussed Condition With: Patient Assessment Summary: Anemia of CKD, End Stage Renal Disease Problem List: (1) End stage renal disease ICD Codes: N18.6 - End stage renal disease Status: Acute Plan: Continue HD MWF. PermCath for HD use. Has appt with Vascular in 2 weeks for transposition. construction safety manager to assist in finding outpatient dialysis unit. The patient wishes to go back to [place] for HD. CM aware. Avoid IVF administration Monitor electrolytes intermittently Low K renal diet, no protein restriction. Seen during hemodialysis tolerating well. Can be discharged once HD arrangements complete (2) HTN (hypertension) ICD Codes: I10 - Essential (primary) hypertension Status: Acute Plan: Blood pressure improved. Not on scheduled antihypertensives. (3) HIV disease ICD Codes: B20 - Human immunodeficiency virus [HIV] disease Status: Chronic Plan: ID evaluated, not starting HAART at this time. (4) Hyperkalemia ICD Codes: E87.5 - Hyperkalemia Plan: Improved, monitor for recurrence (5) Anemia ICD Codes: D64.9 - Anemia, unspecified Status: Acute Plan: Epogen with dialysis. (6) Febrile illness ICD Codes: R50.9 - Fever, unspecified Plan: ID evaluated. He is currently afebrile, improved leukocytosis. Blood cultures with likely contaminant Not ordered antibiotics. CVC can remain in place. (7) Acute metabolic encephalopathy ICD Codes: G93.41 - Metabolic encephalopathy Plan: Most likely due to uremia. Significant improvement is seen. Monitor. Plan . (Lidia Ricardo) Problem List: (1) End stage renal disease ICD Codes: N18.6 - End stage renal disease Status: Acute Plan: Continue HD MWF. PermCath for HD use. Has appt with Vascular in 2 weeks for transposition. construction safety manager to assist in finding outpatient dialysis unit. The patient wishes to go back to [place] for HD. CM aware. Avoid IVF administration Monitor electrolytes intermittently Low K renal diet, no protein restriction. Seen during hemodialysis tolerating well. Can be discharged once HD arrangements complete. Patient has HD done , for discharge, to continue HD as out patient and follow with Dr. Hopper. (2) HTN (hypertension) ICD Codes: I10 - Essential (primary) hypertension Status: Acute Plan: Blood pressure improved. Not on scheduled antihypertensives. (3) HIV disease ICD Codes: B20 - Human immunodeficiency virus [HIV] disease Status: Chronic Plan: ID evaluated, not starting HAART at this time. (4) Hyperkalemia ICD Codes: E87.5 - Hyperkalemia Plan: Improved, monitor for recurrence (5) Anemia ICD Codes: D64.9 - Anemia, unspecified Status: Acute Plan: Epogen with dialysis. (6) Febrile illness ICD Codes: R50.9 - Fever, unspecified Plan: ID evaluated. He is currently afebrile, improved leukocytosis. Blood cultures with likely contaminant Not ordered antibiotics. CVC can remain in place. (7) Acute metabolic encephalopathy ICD Codes: G93.41 - Metabolic encephalopathy Plan: Most likely due to uremia. Significant improvement is seen. Monitor. (Davida Salinas MD) Lidia Ricardo Jan 21, 2018 08:40 Davida Salinas MD Jan 21, 2018 22:17
[2018-01-21] MEDS: SODIUM CHLORIDE 0.9% FLUSH 10 ML FLUSH IV FLUSH SCH (09:00)
[2018-01-21] MEDS: EPOETIN ALFA 10,000 UNITS/ML VIAL IV PUSH PRN (10:30)
[2018-01-21] MEDS: GENTAMICIN SULFATE 20 MG/2 ML VIAL OTHER PRN (10:47)
[2018-01-21] MEDS: HEPARIN SODIUM - IV 10,000 UNITS/10 ML VIAL PRN (10:47)
== END 2018-01-21 14:48 | disposition home or self-care (01) | DRG 682 ==
LOC: NEPE 09:20 → NEDA 12:22 → N07B 16:23
PROVIDERS: ADMIT Internal Medicine; ATTEND Internal Medicine
PROC: 5A1D70Z Performance of Urinary Filtration, Intermittent, Less than 6 Hours Per Day (ICD-10-PCS; principal; 2018-01-17)
DX: I12.0 Hypertensive chronic kidney disease with stage 5 chronic kidney disease or end stage renal disease (principal); N18.6 End stage renal disease; G93.41 Metabolic encephalopathy; B20 Human immunodeficiency virus [HIV] disease; E87.5 Hyperkalemia; D64.9 Anemia, unspecified; Z99.2 Dependence on renal dialysis
CPT/HCPCS: 70450; 71045; 80048; 80053; 80069; 80074; 82140; 82948; 83735; 84100; 84155; 85007; 85025; 85027; 85610; 85730; 86355; 86357; 86359; 86360; 87040; 87185; 87205; 90935; 93005; 96374; 96375; J0131; J1580; J1644; J3370; J7030; J7050; P9047; Q4081